=== PATIENT | female | born 2000 | race Two or more races ===

== ENCOUNTER 2023-12-03 04:43 | Inpatient (IN) | payer OTHER, MEDICAID ==
[~2023-12-03] VITALS: Ht 167.6 cm; Wt 50.0 kg
[2023-12-03 05:20] VITALS: PULSE 116; RESP 15; O2SAT 92
[2023-12-03 07:18] LABS: Basophils # (auto) 0 10 ^3/uL (0-0.2); Basophils % (auto) 0.5 % (0.0-2.0); Eosinophils # (auto) 0.1 10 ^3/uL (0-0.8); Eosinophils % (auto) 1.1 % (0.0-7.0); Hematocrit 41.2 % (36.0-46.0); Hemoglobin 14.2 g/dL (12.2-16.2); Lymphocytes # (auto) 2.2 10 ^3/uL (0.4-5.4); Lymphocytes % (auto) 23.4 % (10.0-50.0); Mean Corpuscular Hgb Conc. 34.6 g/dL (32.0-36.0); Mean Corpuscular Volume 89.6 fL (80.0-100.0); Monocytes # (auto) 0.5 10 ^3/uL (0-1.3); Monocytes % (auto) 5.2 % (0.0-12.0); Neutrophils # (auto) 6.7 10 ^3/uL (1.6-8.6); Neutrophils % (auto) 69.8 % (37.0-80.0); Nucleated Red Blood Cells % 0.1 %; Red Cell Distribution Width 16.5 % (11.8-14.3); White Blood Cell 9.6 10^3/uL (4.4-10.8)
[2023-12-03 07:19] LABS: Alanine Aminotransferase 61 U/L (7-40); Albumin 4.5 g/dL (3.2-4.8); Alkaline Phosphatase 129 U/L (46-116); Anion Gap 9 (5-15); Aspartate Aminotransferase 36 U/L (13-40); Blood Urea Nitrogen 9 mg/dL (9-23); Calcium 9.7 mg/dL (8.5-10.1); Carbon Dioxide 26 mmol/L (20-30); Chloride 108 mmol/L (98-107); Glucose 100 mg/dL (74-106); Potassium 3.7 mmol/L (3.5-5.1); Sodium 143 mmol/L (136-145)
[2023-12-03 07:20] LABS: Bilirubin, Direct < 0.1 mg/dL (<0.3); Bilirubin, Total 0.3 mg/dL (0.2-1.0); Total Protein 7.5 g/dL (5.7-8.2)
[2023-12-03 07:47] LABS: Acetaminophen < 2.0 UG/ML (10.0-20.0); Salicylate 5.1 mg/dL (2.8-20.0)
[2023-12-03 07:53] LABS: Lipase 30 U/L (12-53)
[2023-12-03 08:00] VITALS: PULSE 99; RESP 24; O2SAT 94
[2023-12-03] MEDS: SODIUM CHLORIDE 0.9% 1,600 ML IV ONE (08:27)
[2023-12-03] MEDS: HYDROmorphone HCL 2 MG/ML VL/or syr IV ONE ×2 (08:34→10:02)
[2023-12-03 08:41] LABS: INR 1.03 (0.9-1.15); Prothrombin Time 10.8 sec (9.3-11.8)
[2023-12-03 08:55] LABS: Amphetamine Screen, Urine Neg (NEGATIVE)
[2023-12-03 08:57] LABS: Barbiturate Scree,Urine Neg (NEGATIVE); Benzodiazephine Screen, Urine Neg (NEGATIVE); Cocaine Screen, Urine Neg (NEGATIVE); Opiate Scree,Urine Neg (NEGATIVE)
[2023-12-03 08:58] LABS: Cannabinoid Screen, Urine Neg (NEGATIVE); Phencyclidine Screen, Urine Neg (NEGATIVE)
[2023-12-03 09:03] LABS: Urine Bacteria FEW /hpf (None Seen); Urine Blood Negative /uL (Negative); Urine Clarity HAZY (Clear); Urine Color Yellow (Yellow); Urine Mucus FEW (None Seen); Urine Protein, UAD TRACE (Negative); Urine Specific Gravity 1.015 (1.001-1.035); Urine Urobilinogen Normal (Negative); Urine WBC 332 /hpf (0 - 5); Urine WBC Clumps PRESENT /hpf (None Seen)
[2023-12-03] MEDS: IOHEXOL 350 MG/ML 100ML IJ ONE (09:57)
[2023-12-03] MEDS: SODIUM CHLORIDE 0.9% 1,000 ML IV SCH (11:00)
[2023-12-03] MEDS: BACLOFEN 10 MG TAB PO ONE (11:35)
[2023-12-03] MEDS: cefTRIAXone 1GM/50ML D5W 50 ML IV ONE (13:11)
[2023-12-03] MEDS: AZITHROMYCIN 500MG/ 250ML 250 ML IV ONE (13:24)
[2023-12-03] MEDS: HYDROmorphone HCL 2 MG/ML VL/or syr IV PRN (16:25)
[2023-12-03 20:04] VITALS: PULSE 119; RESP 20; O2SAT 95
[2023-12-03 21:18] VITALS: PULSE 119; RESP 20; O2SAT 95
[2023-12-03 22:00] VITALS: BP 108/61; PULSE 85; RESP 18; TEMP 98.2; O2SAT 97
[2023-12-03] MEDS: POLYETHYLENE GLYCOL 17 GM PWDR PO SCH (22:15)
[2023-12-03 23:17] VITALS: BP 108/61; PULSE 85; RESP 18; TEMP 98.2; O2SAT 97
[2023-12-04 05:00] VITALS: BP 103/53; PULSE 105; RESP 16; TEMP 98.4; O2SAT 97
[2023-12-04 06:05] LABS: Basophils # (auto) 0 10 ^3/uL (0-0.2); Basophils % (auto) 0.6 % (0.0-2.0); Eosinophils # (auto) 0.1 10 ^3/uL (0-0.8); Eosinophils % (auto) 1.4 % (0.0-7.0); Hematocrit 36.1 % (36.0-46.0); Hemoglobin 11.9 g/dL (12.2-16.2); Lymphocytes # (auto) 1.9 10 ^3/uL (0.4-5.4); Lymphocytes % (auto) 28.5 % (10.0-50.0); Mean Corpuscular Hemoglobin 29.9 pg (28.0-32.0); Mean Corpuscular Hgb Conc. 33.1 g/dL (32.0-36.0); Mean Corpuscular Volume 90.2 fL (80.0-100.0); Monocytes # (auto) 0.4 10 ^3/uL (0-1.3); Monocytes % (auto) 5.2 % (0.0-12.0); Neutrophils # (auto) 4.3 10 ^3/uL (1.6-8.6); Neutrophils % (auto) 64.3 % (37.0-80.0); Nucleated Red Blood Cells % 0.1 %; Red Cell Distribution Width 16.4 % (11.8-14.3); White Blood Cell 6.7 10^3/uL (4.4-10.8)
[2023-12-04 06:22] LABS: Alanine Aminotransferase 52 U/L (7-40); Albumin 3.8 g/dL (3.2-4.8); Alkaline Phosphatase 105 U/L (46-116); Anion Gap 5 (5-15); Aspartate Aminotransferase 33 U/L (13-40); Bilirubin, Total 0.2 mg/dL (0.2-1.0); Calcium 8.8 mg/dL (8.5-10.1); Carbon Dioxide 26 mmol/L (20-30); Chloride 110 mmol/L (98-107); Glucose 96 mg/dL (74-106); Potassium 3.6 mmol/L (3.5-5.1); Sodium 141 mmol/L (136-145); Total Protein 6.3 g/dL (5.7-8.2)
[2023-12-04 06:24] LABS: BUN/Creatinine Ratio 22.7 (10.0-20.0); Blood Urea Nitrogen < 5 mg/dL (9-23)
[2023-12-04 08:00] VITALS: PULSE 89; RESP 17; O2SAT 94
[2023-12-04 08:55] VITALS: BP 105/52; PULSE 107; RESP 16; TEMP 98.5; O2SAT 94
[2023-12-04] MEDS: cefTRIAXone 1GM/50ML D5W 50 ML IV SCH (10:15)
[2023-12-04] MEDS: AZITHROMYCIN 500MG/ 250ML 250 ML IV SCH (10:16)
[2023-12-04 12:50] VITALS: BP 104/65; PULSE 89; RESP 17; TEMP 95.4; O2SAT 94
[2023-12-04 20:00] VITALS: PULSE 89; RESP 17; O2SAT 94
[2023-12-04 22:00] VITALS: BP 114/70; PULSE 102; RESP 18; TEMP 98.8; O2SAT 98
[2023-12-05] VITALS (11 sets, daily range): BP systolic 104–124; BP diastolic 58–78; PULSE 98–114; RESP 18–20; TEMP 97.8–99; O2SAT 95–98
[2023-12-05] MEDS: BACLOFEN 10 MG TAB PO PRN (09:26)
[2023-12-05] MEDS ORDERED: VANCOMYCIN PER PHARMACY 0 MG IV SCH (10:30)
[2023-12-05] MEDS: SODIUM CHLORIDE 0.9% 1,000 ML IV ONE (11:10)
[2023-12-05] MEDS: VANCOMYCIN 1GM/200ML 200 ML IV ONE (12:00)
[2023-12-05] MEDS: ALBUTEROL SULF 2.5 MG/0.5ML(0.5%) NEB SOLN NEB SCH (12:22)
[2023-12-05] MEDS: VANCOMYCIN 1GM/200ML 200 ML IV SCH (21:47)
[2023-12-05] MEDS ORDERED: ALBUTEROL SULF 2.5 MG/0.5ML(0.5%) NEB SOLN NEB PRN (22:00)
[2023-12-06] VITALS (9 sets, daily range): BP systolic 104–117; BP diastolic 62–72; PULSE 81–104; RESP 17–22; TEMP 97.9–98.3; O2SAT 93–98
[2023-12-06] MEDS: NutriHep RTU 240 mL Unflavored PO SCH (12:00)
[2023-12-06] MEDS: ENOXAPARIN SOD 30 MG/0.3 ML SYRINGE SC ONE (13:06)
[2023-12-06 13:58] LABS: Alanine Aminotransferase 92 U/L (7-40); Albumin 3.9 g/dL (3.2-4.8); Alkaline Phosphatase 107 U/L (46-116); Anion Gap 7 (5-15); Aspartate Aminotransferase 35 U/L (13-40); Bilirubin, Total 0.3 mg/dL (0.2-1.0); Calcium 9.3 mg/dL (8.7-10.4); Carbon Dioxide 25 mmol/L (20-30); Chloride 106 mmol/L (98-107); Glucose 89 mg/dL (74-106); Magnesium 1.8 mg/dL (1.6-2.6); Potassium 3.5 mmol/L (3.5-5.1); Sodium 138 mmol/L (136-145); Total Protein 6.6 g/dL (5.7-8.2)
[2023-12-06 14:00] LABS: BUN/Creatinine Ratio 22.7 (10.0-20.0); Blood Urea Nitrogen < 5 mg/dL (9-23)
[2023-12-07] VITALS (11 sets, daily range): BP systolic 98–130; BP diastolic 52–76; PULSE 78–114; RESP 16–19; TEMP 36.6; O2SAT 94–97
[2023-12-07] MEDS: VANCOMYCIN 750mg/150ml 150 ML IV SCH (01:42)
[2023-12-07 05:49] LABS: Potassium 3.6 mmol/L (3.5-5.1)
[2023-12-07 05:51] LABS: Calcium 9.4 mg/dL (8.7-10.4)
[2023-12-07 05:56] LABS: BUN/Creatinine Ratio 21.7 (10.0-20.0)
[2023-12-07 05:58] LABS: Albumin 3.8 g/dL (3.2-4.8); Phosphorus 4.5 mg/dL (2.4-5.1)
[2023-12-07] MEDS: ENOXAPARIN SOD 30 MG/0.3 ML SYRINGE SC SCH (08:18)
[2023-12-08] VITALS (8 sets, daily range): BP systolic 103–130; BP diastolic 53–71; PULSE 77–107; RESP 16–18; TEMP 36.6; O2SAT 95
[2023-12-08] MEDS: ENOXAPARIN SOD 40 MG/0.4 ML SYRINGE SC SCH (09:14)
[2023-12-08] MEDS: VANCOMYCIN 750mg/150ml 150 ML IV SCH (12:48)
[2023-12-08] MEDS: ONDANSETRON HCL 4 MG/2 ML VIAL IV PRN (19:51)
[2023-12-09 05:00] VITALS: BP 109/66; PULSE 100; RESP 16; TEMP 97.7; O2SAT 96
[2023-12-09 08:00] VITALS: BP 136/69; PULSE 75; PULSE 78; PULSE 82; RESP 18; TEMP 36.6; O2SAT 96
[2023-12-09 09:00] VITALS: BP 106/56; PULSE 75; RESP 18; TEMP 98.4; O2SAT 95
[2023-12-09 10:00] VITALS: O2SAT 97
[2023-12-09 14:23] LABS: INR 1.09 (0.9-1.15); Prothrombin Time 11.4 sec (9.3-11.8)
[2023-12-09] MEDS: LIDOCAINE 1% (LOCAL ANESTH.) PF 5ml SDV ID ONE (16:30)
[2023-12-09 20:00] VITALS: PULSE 88; RESP 18; O2SAT 95
[2023-12-09 22:00] VITALS: BP 102/48; PULSE 65; RESP 20; TEMP 97.8; O2SAT 92
[2023-12-09] MEDS: SODIUM CHLOR 0.9% PF (SALINE LOCK) 10ML VIAL/SYR IV SCH (22:00)
[2023-12-10] VITALS (9 sets, daily range): BP systolic 102–147; BP diastolic 58–90; PULSE 59–108; RESP 16–20; TEMP 97.6–98.5; O2SAT 93–100
[2023-12-10 02:31] LABS: COVID19 ANTIGEN SOFIA FIA NEGATIVE (NEGATIVE)
[2023-12-10] MEDS ORDERED: VANCOMYCIN 1GM/200ML 200 ML IV SCH (10:00)
[2023-12-11] VITALS (9 sets, daily range): BP systolic 106–118; BP diastolic 61–75; PULSE 68–120; RESP 15–22; TEMP 97–98.5; O2SAT 79–97
[2023-12-12] VITALS (9 sets, daily range): BP systolic 98–134; BP diastolic 59–85; PULSE 78–119; RESP 16–20; TEMP 97.6–99.2; O2SAT 93–97
[2023-12-12] MEDS: VANCOMYCIN 750mg/150ml 150 ML IV SCH (00:24)
[2023-12-12] MEDS: HYDROmorphone HCL 2 MG/ML VL/or syr IV PRN (16:37)
[2023-12-13] VITALS (8 sets, daily range): BP systolic 101–119; BP diastolic 55–64; PULSE 75–106; RESP 17–20; TEMP 98.7–98.9; O2SAT 93–98
[2023-12-14] VITALS (8 sets, daily range): BP systolic 103–120; BP diastolic 50–81; PULSE 69–112; RESP 17–96; TEMP 97.5–98; O2SAT 16–98
[2023-12-14] MEDS: DOCUSATE SOD 100 MG CAP PO PRN (10:40)
[2023-12-15] VITALS (8 sets, daily range): BP systolic 103–145; BP diastolic 61–101; PULSE 64–99; RESP 14–19; TEMP 97.4–98.1; O2SAT 94–97
[2023-12-16] VITALS (8 sets, daily range): BP systolic 104–120; BP diastolic 52–66; PULSE 66–109; RESP 17–20; TEMP 97.9–98.3; O2SAT 94–98
[2023-12-17] VITALS (8 sets, daily range): BP systolic 106–122; BP diastolic 57–86; PULSE 73–93; RESP 14–20; TEMP 97.6–98.1; O2SAT 94–98
[2023-12-18] VITALS (10 sets, daily range): BP systolic 102–138; BP diastolic 57–84; PULSE 74–112; RESP 16–18; TEMP 97.6–98.5; O2SAT 94–98
[2023-12-18 12:50] LABS: Alanine Aminotransferase 52 U/L (7-40); Albumin 4.6 g/dL (3.2-4.8); Alkaline Phosphatase 186 U/L (46-116); Anion Gap 6 (5-15); Aspartate Aminotransferase 25 U/L (13-40); Blood Urea Nitrogen 6 mg/dL (9-23); Calcium 9.8 mg/dL (8.5-10.1); Carbon Dioxide 28 mmol/L (20-30); Chloride 105 mmol/L (98-107); Glucose 89 mg/dL (74-106); Potassium 4.3 mmol/L (3.5-5.1); Sodium 139 mmol/L (136-145)
[2023-12-18 12:51] LABS: Bilirubin, Total 0.4 mg/dL (0.2-1.0); Total Protein 7.2 g/dL (5.7-8.2)
[2023-12-18 14:23] LABS: Basophils # (auto) 0.1 10 ^3/uL (0-0.2); Basophils % (auto) 0.7 % (0.0-2.0); Eosinophils # (auto) 0.2 10 ^3/uL (0-0.8); Eosinophils % (auto) 2.5 % (0.0-7.0); Hematocrit 38.8 % (36.0-46.0); Lymphocytes # (auto) 2.5 10 ^3/uL (0.4-5.4); Lymphocytes % (auto) 25.9 % (10.0-50.0); Mean Corpuscular Hemoglobin 30.4 pg (28.0-32.0); Mean Corpuscular Hgb Conc. 33.5 g/dL (32.0-36.0); Mean Corpuscular Volume 90.9 fL (80.0-100.0); Monocytes # (auto) 0.5 10 ^3/uL (0-1.3); Neutrophils # (auto) 6.2 10 ^3/uL (1.6-8.6); Neutrophils % (auto) 65.9 % (37.0-80.0); Red Blood Cells 4.27 10^6/uL (4.0-5.20); Red Cell Distribution Width 15.5 % (11.8-14.3); White Blood Cell 9.5 10^3/uL (4.4-10.8)
[2023-12-19 05:00] VITALS: BP 110/78; PULSE 75; RESP 18; TEMP 98.6; O2SAT 97
[2023-12-19 08:00] VITALS: PULSE 98
[2023-12-19 08:30] VITALS: BP 120/75; PULSE 98; RESP 18; TEMP 97.9; O2SAT 96
[2023-12-19 10:01] VITALS: O2SAT 96
[2023-12-19 10:39] VITALS: BP 120/75; PULSE 98; RESP 18; TEMP 97.9; O2SAT 96
[2023-12-19] MEDS: HYDROmorphone HCL 2 MG/ML VL/or syr IV PRN (12:42)
[2023-12-19 20:00] VITALS: PULSE 71; PULSE 79; RESP 18; O2SAT 97
[2023-12-20] VITALS (7 sets, daily range): BP systolic 111–115; BP diastolic 66–75; PULSE 80–103; RESP 15–20; TEMP 97.8–98.2; O2SAT 96–98
[2023-12-20] MEDS: ENOXAPARIN SOD 30 MG/0.3 ML SYRINGE SC ONE (16:11)
[2023-12-21] VITALS (7 sets, daily range): BP systolic 105–120; BP diastolic 63–87; PULSE 69–86; RESP 16–20; TEMP 97.4–98; O2SAT 94–98
[2023-12-21] MEDS: ENOXAPARIN SOD 30 MG/0.3 ML SYRINGE SC SCH (10:26)
[2023-12-21] MEDS: ZOLPIDEM TARTRATE 5 MG TAB PO PRN (22:57)
[2023-12-22] VITALS (9 sets, daily range): BP systolic 106–119; BP diastolic 56–80; PULSE 51–97; RESP 16–20; TEMP 97.8–99.3; O2SAT 94–98
[2023-12-23] VITALS (8 sets, daily range): BP systolic 115–162; BP diastolic 57–89; PULSE 62–101; RESP 18–20; TEMP 97.8–98.1; O2SAT 94–98
[2023-12-23] MEDS ORDERED: ZOLP5TAB PO (09:48)
[2023-12-23] MEDS ORDERED: BACL5TAB2 PO (09:48)
[2023-12-23] MEDS ORDERED: HYDR2TAB58 PO (09:48)
[2023-12-23] MEDS ORDERED: RIVA10TA PO (09:48)
[2023-12-23] MEDS ORDERED: DOCU-94 PO (09:48)
[2023-12-24 03:12] VITALS: BP 123/75; PULSE 86; RESP 20; TEMP 98.9; O2SAT 96
[2023-12-24 05:00] VITALS: BP 102/54; PULSE 107; RESP 18; TEMP 98; O2SAT 94
[2023-12-24 08:05] VITALS: PULSE 81
[2023-12-24 09:00] VITALS: BP 110/60; PULSE 110; RESP 14; TEMP 98.2; O2SAT 95
[2023-12-24 10:00] VITALS: O2SAT 95
[2023-12-24 10:30] VITALS: BP 110/63; PULSE 85; RESP 16
== END 2023-12-24 11:15 | disposition home health service (06) | DRG 871 ==
LOC: ER 04:43 → OVERFLOW 11:20 → EAST 22:10 → TELE-EAST 12-05 11:51
PROVIDERS: ADMIT Nurse Practitioner Family; ATTEND Family Medicine
PROC: 02H633Z Insertion of Infusion Device into Right Atrium, Percutaneous Approach (ICD-10-PCS; principal; 2023-12-09)
PROC: B548ZZA Ultrasonography of Superior Vena Cava, Guidance (ICD-10-PCS; 2023-12-09)
DX: A41.9 Sepsis, unspecified organism (principal); E43 Unspecified severe protein-calorie malnutrition; G82.50 Quadriplegia, unspecified; I61.9 Nontraumatic intracerebral hemorrhage, unspecified; J18.9 Pneumonia, unspecified organism; N10 Acute pyelonephritis; F11.13 Opioid abuse with withdrawal; Z68.1 Body mass index [BMI] 19.9 or less, adult; Z20.822 Contact with and (suspected) exposure to COVID-19; E86.0 Dehydration; L98.419 Non-pressure chronic ulcer of buttock with unspecified severity; R00.1 Bradycardia, unspecified; L98.429 Non-pressure chronic ulcer of back with unspecified severity; Z74.01 Bed confinement status; Z93.1 Gastrostomy status; Z93.0 Tracheostomy status
CPT/HCPCS: 36415; 36569; 70496; 71045; 71275; 76705; 80048; 80053; 80069; 80076; 80202; 80307; 80320; 80329; 81001; 82565; 82962; 83690; 83735; 84484; 84702; 85025; 85610; 87040; 87081; 87086; 87426; 93005; 94640; 96361; 96374; 96376; 97110; 97116; 97163; 97530; 99291; G0378; J2405

== ENCOUNTER 2023-12-29 07:15 | Inpatient (IN) | payer OTHER, MEDICAID ==
[~2023-12-29] VITALS: Ht 162.6 cm; Wt 54.5 kg
[~2023-12-29 07:15] MED LIST: BACL5TAB2 PO; DOCU-94 PO; HYDR2TAB58 PO; ZOLP5TAB PO
[2023-12-29 07:45] LABS: Basophils # (auto) 0.1 10 ^3/uL (0-0.2); Basophils % (auto) 0.8 % (0.0-2.0); Eosinophils # (auto) 0.2 10 ^3/uL (0-0.8); Eosinophils % (auto) 2.2 % (0.0-7.0); Hematocrit 43.3 % (36.0-46.0); Hemoglobin 14.3 g/dL (12.2-16.2); Lymphocytes # (auto) 2.1 10 ^3/uL (0.4-5.4); Lymphocytes % (auto) 29.7 % (10.0-50.0); Mean Corpuscular Hgb Conc. 32.9 g/dL (32.0-36.0); Monocytes # (auto) 0.5 10 ^3/uL (0-1.3); Monocytes % (auto) 6.9 % (0.0-12.0); Neutrophils # (auto) 4.2 10 ^3/uL (1.6-8.6); Neutrophils % (auto) 60.4 % (37.0-80.0); Red Blood Cells 4.76 10^6/uL (4.0-5.20)
[2023-12-29 07:59] VITALS: PULSE 90; RESP 14; O2SAT 95
[2023-12-29 08:04] LABS: Alanine Aminotransferase 44 U/L (7-40); Albumin 4.5 g/dL (3.2-4.8); Alkaline Phosphatase 117 U/L (46-116); Anion Gap 7 (5-15); Aspartate Aminotransferase 27 U/L (13-40); BUN/Creatinine Ratio 43.3 (10.0-20.0); Blood Urea Nitrogen 13 mg/dL (9-23); Carbon Dioxide 29 mmol/L (20-30); Chloride 104 mmol/L (98-107); Glucose 96 mg/dL (74-106); Potassium 4.2 mmol/L (3.5-5.1); Sodium 140 mmol/L (136-145)
[2023-12-29 08:05] LABS: Bilirubin, Total 0.4 mg/dL (0.2-1.0); Total Protein 7.1 g/dL (5.7-8.2)
[2023-12-29] MEDS ORDERED: SODIUM CHLORIDE 0.9% 2,000 ML IV ONE (08:15)
[2023-12-29] MEDS: LACTATED RINGER'S 2,000 ML IV ONE (08:15)
[2023-12-29 09:50] LABS: Urine Bacteria FEW /hpf (None Seen); Urine Blood Negative /uL (Negative); Urine Clarity Clear (Clear); Urine Protein, UAD Negative (Negative); Urine Specific Gravity 1.003 (1.001-1.035); Urine Urobilinogen Normal (Negative); Urine WBC 13 /hpf (0 - 5)
[2023-12-29 09:54] LABS: Urine Color Straw (Yellow)
[2023-12-29] MEDS: IOHEXOL 350 MG/ML 100ML IJ ONE (10:30)
[2023-12-29] MEDS: cefTRIAXone 1GM/50ML D5W 50 ML IV ONE (10:40)
[2023-12-29] MEDS: AZITHROMYCIN 500MG/ 250ML 250 ML IV ONE (12:36)
[2023-12-29] MEDS: DexAMETHasone SOD PHOS 10MG/1ML VIAL INJ IV ONE (12:36)
[2023-12-29] MEDS ORDERED: ACETAMINOPHEN 325 MG TAB PO PRN (13:30)
[2023-12-29] MEDS ORDERED: ONDANSETRON HCL 4 MG/2 ML VIAL IV PRN (13:30)
[2023-12-29] MEDS ORDERED: NITROGLYCERIN 0.4 MG SL TAB SL PRN (13:30)
[2023-12-29] MEDS ORDERED: MORPHINE SULFATE INJ 2 MG/ml SYRG IV PRN (13:30)
[2023-12-29] MEDS ORDERED: DOCUSATE SOD 100 MG CAP PO PRN (13:30)
[2023-12-29] MEDS: PANTOPRAZOLE 40 MG TAB PO ONE (14:34)
[2023-12-29] MEDS: BACLOFEN 10 MG TAB PO SCH (14:35)
[2023-12-29] MEDS: HYDROmorphone HCL 2 MG/ML VL/or syr IV ONE (14:36)
[2023-12-29 15:41] VITALS: BP 110/64; PULSE 83; RESP 18; O2SAT 95
[2023-12-29] MEDS ORDERED: ENOX30IN5 SC (19:31)
[2023-12-29] MEDS: HYDROmorphone HCL 2 MG TAB PO PRN (19:40)
[2023-12-29 20:00] VITALS: PULSE 129
[2023-12-29 20:13] VITALS: PULSE 87; RESP 20; O2SAT 97
[2023-12-29] MEDS: ALBUTEROL SULF 2.5 MG/0.5ML(0.5%) NEB SOLN NEB SCH (20:13)
[2023-12-29] MEDS: IPRATROPIUM BROM 0.5 MG/2.5ML INH SOL NEB SCH (20:13)
[2023-12-29 20:19] VITALS: PULSE 92; RESP 18; O2SAT 97
[2023-12-29 21:00] VITALS: BP 120/63; PULSE 141; RESP 19; TEMP 98.6; O2SAT 95
[2023-12-29] MEDS: HYDROcodone-ACET 5/325MG TAB PO PRN (22:09)
[2023-12-30] VITALS (16 sets, daily range): BP systolic 104–119; BP diastolic 44–83; PULSE 90–144; RESP 18–20; TEMP 97.9–98.6; O2SAT 92–100
[2023-12-30 05:38] LABS: Basophils # (auto) 0.1 10 ^3/uL (0-0.2); Basophils % (auto) 0.6 % (0.0-2.0); Eosinophils # (auto) 0 10 ^3/uL (0-0.8); Eosinophils % (auto) 0.1 % (0.0-7.0); Hematocrit 41.5 % (36.0-46.0); Hemoglobin 13.6 g/dL (12.2-16.2); Lymphocytes # (auto) 2.4 10 ^3/uL (0.4-5.4); Lymphocytes % (auto) 20.8 % (10.0-50.0); Mean Corpuscular Hgb Conc. 32.8 g/dL (32.0-36.0); Mean Corpuscular Volume 91.5 fL (80.0-100.0); Monocytes # (auto) 0.7 10 ^3/uL (0-1.3); Monocytes % (auto) 6.1 % (0.0-12.0); Neutrophils # (auto) 8.3 10 ^3/uL (1.6-8.6); Neutrophils % (auto) 72.4 % (37.0-80.0); Red Blood Cells 4.54 10^6/uL (4.0-5.20); Red Cell Distribution Width 14.9 % (11.8-14.3); White Blood Cell 11.5 10^3/uL (4.4-10.8)
[2023-12-30 05:55] LABS: Alanine Aminotransferase 36 U/L (7-40); Albumin 4.1 g/dL (3.2-4.8); Alkaline Phosphatase 101 U/L (46-116); Anion Gap 6 (5-15); Aspartate Aminotransferase 17 U/L (13-40); BUN/Creatinine Ratio 32.1 (10.0-20.0); Blood Urea Nitrogen 9 mg/dL (9-23); Calcium 9.3 mg/dL (8.7-10.4); Carbon Dioxide 27 mmol/L (20-30); Chloride 107 mmol/L (98-107); Glucose 99 mg/dL (74-106); Potassium 3.7 mmol/L (3.5-5.1); Sodium 140 mmol/L (136-145)
[2023-12-30 05:56] LABS: Bilirubin, Total 0.3 mg/dL (0.2-1.0); Total Protein 6.8 g/dL (5.7-8.2)
[2023-12-30] MEDS: levoFLOXacin 750MG 150 ML IV SCH (08:27)
[2023-12-30] MEDS: ENOXAPARIN SOD 30 MG/0.3 ML SYRINGE SC SCH (08:27)
[2023-12-30] MEDS: PANTOPRAZOLE 40 MG TAB PO SCH (08:27)
[2023-12-30] MEDS ORDERED: ALBUTEROL SULF 2.5 MG/0.5ML(0.5%) NEB SOLN NEB PRN (10:45)
[2023-12-30] MEDS: cefTRIAXone 1GM/50ML D5W 50 ML IV ONE (10:51)
[2023-12-30] MEDS: LORazepam 2MG/ML-1ML VIAL IV PRN (13:41)
[2023-12-31] VITALS (12 sets, daily range): BP systolic 111–128; BP diastolic 8–64; PULSE 110–141; RESP 17–20; TEMP 97.6–98.7; O2SAT 89–98
[2023-12-31 05:13] LABS: Basophils # (auto) 0.1 10 ^3/uL (0-0.2); Basophils % (auto) 0.6 % (0.0-2.0); Eosinophils # (auto) 0.1 10 ^3/uL (0-0.8); Eosinophils % (auto) 0.6 % (0.0-7.0); Hematocrit 38.8 % (36.0-46.0); Lymphocytes # (auto) 2.3 10 ^3/uL (0.4-5.4); Lymphocytes % (auto) 21.4 % (10.0-50.0); Mean Corpuscular Hemoglobin 30.3 pg (28.0-32.0); Mean Corpuscular Hgb Conc. 33.4 g/dL (32.0-36.0); Mean Corpuscular Volume 90.7 fL (80.0-100.0); Monocytes # (auto) 0.8 10 ^3/uL (0-1.3); Monocytes % (auto) 7.6 % (0.0-12.0); Neutrophils # (auto) 7.4 10 ^3/uL (1.6-8.6); Neutrophils % (auto) 69.8 % (37.0-80.0); Nucleated Red Blood Cells % 0.1 %; Red Blood Cells 4.27 10^6/uL (4.0-5.20); White Blood Cell 10.7 10^3/uL (4.4-10.8)
[2023-12-31 05:19] LABS: Anion Gap 6 (5-15); Carbon Dioxide 30 mmol/L (20-30); Chloride 104 mmol/L (98-107); Potassium 4.1 mmol/L (3.5-5.1); Sodium 140 mmol/L (136-145)
[2023-12-31 05:20] LABS: Calcium 9.5 mg/dL (8.5-10.1)
[2023-12-31 05:25] LABS: BUN/Creatinine Ratio 21.2 (10.0-20.0); Blood Urea Nitrogen 7 mg/dL (9-23); Glucose 94 mg/dL (74-106)
[2023-12-31] MEDS: dilTIAZem 25 MG/5 ML VIAL IV ONE (05:35)
[2023-12-31] MEDS: cefTRIAXone 1GM/50ML D5W 50 ML IV SCH (09:51)
[2023-12-31] MEDS ORDERED: LEVO750T40 PO (10:31)
== END 2023-12-31 14:45 | disposition home health service (06) | DRG 313 ==
LOC: ER 07:15 → EDBD 07:15 → TELE 13:31 → TELE-WESTW 18:19
PROVIDERS: ADMIT Internal Medicine Pulmonary Disease; ATTEND Internal Medicine Pulmonary Disease
DX: R07.89 Other chest pain (principal); G82.50 Quadriplegia, unspecified; N30.00 Acute cystitis without hematuria; J98.11 Atelectasis; L89.152 Pressure ulcer of sacral region, stage 2; G89.29 Other chronic pain; N28.9 Disorder of kidney and ureter, unspecified; Z79.899 Other long term (current) drug therapy; Z86.73 Personal history of transient ischemic attack (TIA), and cerebral infarction without residual deficits
CPT/HCPCS: 36415; 71045; 71275; 80048; 80053; 81001; 83605; 83735; 84484; 85025; 85379; 87040; 87081; 93005; 94640; G0378; J1100; J1956

== ENCOUNTER 2024-11-01 00:15 | Inpatient (IN) | payer MEDICAID, OTHER ==
[2024-11-01] VITALS (13 sets, daily range): BP systolic 96; BP diastolic 56; PULSE 100–150; RESP 16–27; TEMP 99.3; O2SAT 89–99
[~2024-11-01] VITALS: Ht 157.5 cm; Wt 57.8 kg
[~2024-11-01 00:15] MED LIST changes: +ENOX30IN5 SC; +LEVO750T40 PO
[2024-11-01] MEDS: SODIUM CHLORIDE 0.9% 1,000 ML IV ONE ×3 (01:11→05:31)
[2024-11-01 01:21] LABS: Chloride 104 mmol/L (98-107); Potassium 3.8 mmol/L (3.5-5.1); Sodium 140 mmol/L (136-145)
[2024-11-01 01:22] LABS: Anion Gap 10 (5-15); Carbon Dioxide 26 mmol/L (20-31)
[2024-11-01 01:23] LABS: Calcium 9.7 mg/dL (8.7-10.4)
[2024-11-01 01:27] LABS: BUN/Creatinine Ratio 41.7 (10.0-20.0); Blood Urea Nitrogen 15 mg/dL (9-23)
[2024-11-01 01:37] LABS: Glucose 125 mg/dL (74-106)
[2024-11-01 01:39] LABS: Basophils # (auto) 0 10 ^3/uL (0-0.2); Basophils % (auto) 0.4 % (0.0-2.0); Eosinophils # (auto) 0.1 10 ^3/uL (0-0.8); Eosinophils % (auto) 1.2 % (0.0-7.0); Hemoglobin 13.3 g/dL (12.2-16.2); Lymphocytes # (auto) 0.9 10 ^3/uL (0.4-5.4); Lymphocytes % (auto) 10.2 % (10.0-50.0); Mean Corpuscular Hgb Conc. 33.4 g/dL (32.0-36.0); Mean Corpuscular Volume 86.9 fL (80.0-100.0); Monocytes # (auto) 0.8 10 ^3/uL (0-1.3); Monocytes % (auto) 9.7 % (0.0-12.0); Neutrophils # (auto) 6.7 10 ^3/uL (1.6-8.6); Neutrophils % (auto) 78.5 % (37.0-80.0); Nucleated Red Blood Cells % 0.1 %; Platelet Count (auto) 213 10^3/uL (140-450); Red Cell Distribution Width 17.5 % (11.8-14.3); White Blood Cell 8.6 10^3/uL (4.4-10.8)
--- NOTE | 2024-11-01 02:02 | ED.PDOC ---
History of Present Illness HPI Comments 24 y/o F, with a significant Hx of quadriplegia and intracranial bleed, is BIBA for c/o shortness of breath, today. Per EMS report, patient comments on being awoken, suddenly, with difficulty breathing, this morning. She is commented to have been diagnosed with a "viral infection," yesterday, while at [facility]. Upon time of assessment, patient endorses on breathing improving s/p being given duo-nebulizer breathing treatment by EMS staff en route. She denies having any chest pain, cough, fever, chills, or other associated symptoms or modifiers at this time. Chief Complaint: Shortness of Breath Time Seen by MD: 00:30 Primary Care Provider: OMAR Reviewed Notes: Nurses Notes, Fuels Engineer Notes, Medications, Allergies Allergies: Coded Allergies: NO KNOWN ALLERGIES (Unverified , 12/03/23) Home Meds Active Scripts Levofloxacin Hemihydrate (LEVOFLOXACIN) 750 Mg Tab, 750 MG PO DAILY for 5 Days, #5 TAB Prov:CANDY BELCHER RESIDENT 12/31/23 Zolpidem Tartrate (Ambien) 5 Mg Tab, 5 MG PO HS PRN, #30 TAB Prov:KHADIJAH MCKINNEY MD 12/23/23 Docusate Sodium (Colace) 100 Mg Cap, 1 CAP PO BID PRN, #30 CAP Prov:KHADIJAH MCKINNEY MD 12/23/23 Baclofen (Baclofen) 5 Mg Tab, 10 MG PO TID, #90 TAB Prov:KHADIJAH MCKINNEY MD 12/23/23 Hydromorphone Hcl (Dilaudid) 2 Mg Tab, 0.5 TAB PO TID PRN, #30 TAB Prov:KHADIJAH MCKINNEY MD 12/23/23 Reported Medications Enoxaparin Sodium (Enoxaparin Sodium) 30 Mg/0.3 Ml Inj, SC 12/29/23 Information Source: Patient, Emergency Med Personnel Mode of Arrival: EMS Severity: Moderate Timing: Hours Duration: Since onset Prehospital treatment: 12 Lead EKG, Breathing Tx, Insurance Sales Manager Past Medical History PAST MEDICAL HISTORY: CVA Past Medical History (Other): intracranial hemorrhage, quadriplegia Surgical History: Denies all surgeries Surgical History (Other): intubation and extubation, PEG tube, tacheostomy [employer]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: Unknown Family History Family History: Unknown Social History Smoker: Non-Smoker Alcohol: Denies ETOH Use Drugs: Denies Drug Use Lives In: Home Respiratory: reports: shortness of breath All Other Systems: Reviewed and Negative (negative unless otherwise stated above or in HPI) Physical Exam General Appearance: No Apparent Distress, Normal HEENT: Normal ENT Inspection, Pharynx Normal, TMs Normal Neck: Full Range of Motion, Non-Tender, Normal, Normal Inspection Respiratory: Chest Non-Tender, No Accessory Muscle Use, No Respiratory Distress, Wheezing (minor expiratory wheezing bilaterally) Cardiovascular: No Edema, No JVD, No Murmur, No Gallop, Normal Peripheral Pulses, Regular Rate/Rhythm Breast Exam: Deferred Gastrointestinal: No Organomegaly, Non Tender, No Pulsatile Mass, Normal Bowel Sounds, Soft Genitalia: Deferred Pelvic: Deferred Rectal: Deferred Extremities: No calf tenderness, Normal capillary refill, Normal inspection, Normal range of motion, Non-tender, No pedal edema Musculoskeletal : Apperance: Normal Neurologic: Alert, Normal Affect, Normal Mood, Other (quadriplegic) Cerebellar Function: Normal Reflexes: Normal Skin: Dry, Normal Color, Warm Lymphatic: No Adenopathy Was a procedure done? Was a procedure done?: No EKG EKG : Pulse Rate (adult): 113 [place]: Normal Cardiac Rhythm: ST Block: None Hypertrophy: None ST: Normal Differential Dx Considerations may include: URI, viral syndrome, PNA, bronchitis, Covid19, influenza, pleural effusions X-Ray, Labs, Meds, VS Vital Signs Date Time Temp Pulse Resp B/P (MAP) Pulse Ox O2 Delivery O2 Flow Rate FiO2 11/01/24 03:36 113 11/01/24 03:17 99.1 11/01/24 02:17 100.9 11/01/24 01:59 100.9 111 18 93/62 (72) 96 100.9 11/01/24 01:06 113 27 97 Nasal Cannula* 4 36 11/01/24 01:01 98.9 113 27 85/49 (61) 97 98.9 11/01/24 00:34 113 11/01/24 00:20 98.7 115 29 118/73 (88) 94 Lab Test 11/01/24 01:00 Range/Units White Blood Count 8.6 4.4-10.8 10^3/uL Red Blood Count 4.60 4.0-5.20 10^6/uL Hemoglobin 13.3 12.2-16.2 g/dL Hematocrit 40.0 36.0-46.0 % Mean Corpuscular Volume 86.9 80.0-100.0 fL Mean Corpuscular Hemoglobin 29.0 28.0-32.0 pg Mean Corpuscular Hemoglobin Concent 33.4 32.0-36.0 g/dL Red Cell Distribution Width 17.5 H 11.8-14.3 % Platelet Count 213 140-450 10^3/uL Mean Platelet Volume 8.9 6.9-10.8 fL Neutrophils (%) (Auto) 78.5 37.0-80.0 % Lymphocytes (%) (Auto) 10.2 10.0-50.0 % Monocytes (%) (Auto) 9.7 0.0-12.0 % Eosinophils (%) (Auto) 1.2 0.0-7.0 % Basophils (%) (Auto) 0.4 0.0-2.0 % Neutrophils # (Auto) 6.7 1.6-8.6 10 ^3/uL Lymphocytes # (Auto) 0.9 0.4-5.4 10 ^3/uL Monocytes # (Auto) 0.8 0-1.3 10 ^3/uL Eosinophils # (Auto) 0.1 0-0.8 10 ^3/uL Basophils # (Auto) 0 0-0.2 10 ^3/uL Nucleated Red Blood Cells 0.1 % Sodium Level 140 136-145 mmol/L Potassium Level 3.8 3.5-5.1 mmol/L Chloride Level 104 98-107 mmol/L Carbon Dioxide Level 26 20-31 mmol/L Anion Gap 10 5-15 Blood Urea Nitrogen 15 9-23 mg/dL Creatinine 0.36 L 0.550-1.02 mg/dL Glomerular Filtration Rate Calc 144 >90 mL/min BUN/Creatinine Ratio 41.7 H 10.0-20.0 Serum Glucose 125 H 74-106 mg/dL Calcium Level 9.7 8.7-10.4 mg/dL B-Type Natriuretic Peptide 14.82 0-100 pg/mL Current Medications Medications (Trade) Dose Ordered Sig/Carlos Route Start Time Stop Time Status Last Admin Sodium Chloride 1,000 ml @ 1,000 mls/hr Q1H ONCE IV 11/01/24 01:00 11/01/24 01:59 DC 11/01/24 01:11 Acetaminophen (Tylenol Tablet) 650 mg ONCE ONCE PO 11/01/24 02:15 11/01/24 02:16 DC 11/01/24 02:17 [place] [id number] Ph: [phone] DIAGNOSTIC IMAGING Diagnostic Imaging Report : [id number] Signed PATIENT: STEPHANI GRIGGS ACCT: [id number] UNIT: [id number] : 2000 LOC: ER ROOM / BED: / AGE / SEX: 24 / F ADM STATUS: REG ER SERVICE ORDERING PHYSICIAN: SUSANNE VERGARA MD PROCEDURE(s): CXRP - CHEST PORTABLE REASON: sob ORDER NUMBER(s): [id number], ACCESSION NUMBER(s): [id number] CHEST RADIOGRAPH Indication: sob Technique: Single frontal view of the chest was obtained Comparison: XY CHEST PORTABLE on DOS: 12/29/23, XY CHEST PORTABLE on DOS: 12/09/23, XY CHEST PORTABLE on DOS: 12/06/23 IMPRESSION: There is dense opacification of the lower half of the right lung with mediastinal shift to the right and termination of the right mainstem bronchus suggesting atelectasis with probable occlusion of the right bronchus. The left lung appears relatively clear. There is interstitial prominence and mild pulmonary vascular congestion. No pneumothorax. ATED BY: SEYMOUR ROCA MD DICTATED DATE/TIME: 11/01/24226 SIGNED BY: SEYMOUR ROCA MD SIGNED DATE/TIME: 11/01/24226 CC: Time of 1ST Reevaluation: 01:00 Reevaluation 1ST: Unchanged Patient Education/Counseling: Diagnosis, Treatment Family Education/Counseling: No Family Present Additional Information I reviewed the following notes from patient's past medical encounters: ED physician note on 12/29/23 and 12/03/23; Hospital admission discharge summary 12/31/23 and 12/24/23 The following tests were ordered, and results were reviewed by me: EKG, CXR, rapid influenza A&B and Covid19 antigen DANIEL tests, CBC, BMP, BNP Additional Information was gathered from interviewing the following independent historians: EMT I reviewed and agreed with the following test results read by other providers: CXR I discussed treatment and results with medical personnel Departure 1 Departure Time of Disposition: 04:00 (Patient with a right lower lobe consolidation. Patient home his signs symptoms concerning for possible sepsis however patient is refusing sepsis interventions. We will re-attempt to give patient fluids antibiotics and admit patient for further workup.) Impression: Primary Impression: Right lower lobe consolidation Additional Impression: Shortness of breath Disposition: ADMITTED INPATIENT Admit to: Med Surg Condition: Serious Critical Care Note Critical Care Time?: Yes Critical care comment: Acute shortness of breath Authorized and Performed by: Susanne Vergara MD Total critical care time: Approximately 41 minutes Due to a high probability of clinically significant, life threatening det erioration, the patient required my highest level of preparedness to intervene emergently and I personally spent this critical care time directly and personally managing the patient. This critical care time included obtaining a history; examining the patient; pulse oximetry; ordering and review of studies; arranging urgent treatment with development of a management plan; evaluation of patient's response to treatment; frequent reassessment; and, discussions with other providers. This critical care time was performed to assess and manage the high probability of imminent, life-threatening deterioration that could result in multi-organ failure. It was exclusive of separately billable procedures and treating other patients and teaching time. Please see my other sections and the rest of the note for further information on patient assessment and treatment. Stability Stability form required: No Heart Score Heart Score: Heart Score Response (Comments) Value History N/A 0 EKG N/A 0 Age N/A 0 Risk Factors N/A 0 Troponin N/A 0 Total 0 I personally scribed for SUSANNE VERGARA MD ([email or web address]) on 11/01/24 at 02:01. Electronically submitted by Seth Murillo ([email or web address]). I personally scribed for SUSANNE VERGARA MD ([email or web address]) on 11/01/24 at 03:36. Electronically submitted by Seth Murillo ([email or web address]). SUSANNE VERGARA MD Nov 01, 2024 02:01
[2024-11-01] MEDS: ACETAMINOPHEN 325 MG TAB PO ONE (02:17)
--- NOTE | 2024-11-01 02:28 | DVH ---
CHEST RADIOGRAPH Indication: sob Technique: Single frontal view of the chest was obtained Comparison: XY CHEST PORTABLE on DOS: 12/29/23, XY CHEST PORTABLE on DOS: 12/09/23, XY CHEST PORTABLE on DOS: 12/06/23 IMPRESSION: There is dense opacification of the lower half of the right lung with mediastinal shift to the right and termination of the right mainstem bronchus suggesting atelectasis with probable occlusion of the right bronchus. The left lung appears relatively clear. There is interstitial prominence and mild pulmonary vascular congestion. No pneumothorax.
[2024-11-01] MEDS ORDERED: SODIUM CHLORIDE 0.9% 2,000 ML IV ONE (04:30)
[2024-11-01] MEDS: ACETAMINOPHEN IV 1000 MG/100ML (10MG/ML) IV ONE (04:36)
[2024-11-01] MEDS: AZITHROMYCIN 250 MG TAB PO ONE (04:40)
[2024-11-01] MEDS: VANCOMYCIN 1GM/250ML KIT 200 ML IV ONE (04:41)
[2024-11-01] MEDS: IOHEXOL 350 MG/ML 100ML IJ ONE (05:16)
[2024-11-01] MEDS: CEFEPIME 2GM/50ML NS 50 ML IV ONE (05:28)
--- NOTE | 2024-11-01 05:52 | DVHHPRES ---
History of Present Illness Resident Creating Document: KARI MOLINA RESIDENT History of Present Illness Patient is a 24-year-old female with past medical history of quadriplegia secondary to an intracranial hemorrhage due to alteplase administration in 2022, who came in due to shortness of breath. According to the patient, she has been having increasing shortness of breath and dyspnea for the past 3 days, she also feels congested and at baseline is incontinent and unable to cough. Denies having any sick contacts. On review of systems patient is complaining of fever, congestion, shortness of breath, dyspnea and palpitations. Chest x-ray showedb dense opacification of the lower half of the right lung with mediastinal shift to the right and termination of the right mainstem bronchus suggesting atelectasis with probable occlusion of the right bronchus. Past Medical History quadriplegia secondary to an intracranial hemorrhage due to alteplase administration in 2022 Past Surgical History Intubation, tracheostomy, peg tube Smoke: No ALCOHOL: none Drugs: None Lives: with Family Review of Systems Constitutional: Yes: Fever, Chills; No: Sweats, Weakness, Malaise, Other Eyes: No: Pain, Vision change, Conjunctivae inflammation, Eyelid inflammation, Other, Redness ENT: No: Ear pain, Ear discharge, Nose pain, Nose discharge, Nose congestion, Mouth pain, Mouth swelling, Throat pain, Throat swelling, Other Respiratory: Shortness of breath; No: Cough, Dry, SOB with excertion, Wheezing, Hemoptysis, Pleuritic Pain, Sputum, Wheezing, Other Cardiovascular: Palpitations; No: Chest Pain, Orthopnea, Paroxysmal Noc. Dyspnea, Edema, Lt Headedness, Other Gastrointestinal: No: Nausea, Vomiting, Abdominal Pain, Diarrhea, Constipation, Melena, Hematochezia, Other Genitourinary: No Dysuria, No Frequency, No Incontinence, No Hematuria, No Retention, No Other Musculoskeletal: No: other, neck pain, shoulder pain, arm pain, back pain, hand pain, leg pain, foot pain Skin: No: Rash, Lesions, Jaundice, Bruising, Other Neurological: No: Weakness, Numbness, Incoordination, Change in speech, Confusion, Seizures, Other Allergies: Coded Allergies: NO KNOWN ALLERGIES (Unverified , 12/03/23) Medications Current Medications Medications Dose Ordered Sig/Carlos Route Start Time Stop Time Status Last Admin Dose Admin Azithromycin 250 ml @ 125 mls/hr DAILY@0500 IV 11/02/24 05:00 Meropenem 50 ml @ 17 mls/hr Q8HR IV 11/01/24 06:00 Ipratropium [place] 0.5 mg Q4HR NEB 11/01/24 06:00 Levalbuterol HCl 1.25 mg Q4HR NEB 11/01/24 06:00 Exam Vital Signs Vital Signs Date Time Temp Pulse Resp B/P (MAP) Pulse Ox O2 Delivery O2 Flow Rate FiO2 11/01/24 05:00 98.9 99 23 80/43 (55) 99 98.9 11/01/24 01:06 Nasal Cannula* 4 36 General Appearance: Alert, Oriented X3, Cooperative, moderate distress HEENT: Atraumatic, PERRLA, EOMI Respiratory: Other (Bilateral wheezes, decreased bilateral breath entry) Cardiovascular: Regular rate, Normal S1, Normal S2 Abdominal: Normal bowel sounds, No tenderness Extremities: No clubbing, No edema Skin: No significant lesion Neuro: Normal speech Labs/Xrays Labs Test 11/01/24 04:44 11/01/24 01:00 Range/Units Lactic Acid Level 0.7 0.4-2.0 mmol/L White Blood Count 8.6 4.4-10.8 10^3/uL Red Blood Count 4.60 4.0-5.20 10^6/uL Hemoglobin 13.3 12.2-16.2 g/dL Hematocrit 40.0 36.0-46.0 % Mean Corpuscular Volume 86.9 80.0-100.0 fL Mean Corpuscular Hemoglobin 29.0 28.0-32.0 pg Mean Corpuscular Hemoglobin Concent 33.4 32.0-36.0 g/dL Red Cell Distribution Width 17.5 H 11.8-14.3 % Platelet Count 213 140-450 10^3/uL Mean Platelet Volume 8.9 6.9-10.8 fL Neutrophils (%) (Auto) 78.5 37.0-80.0 % Lymphocytes (%) (Auto) 10.2 10.0-50.0 % Monocytes (%) (Auto) 9.7 0.0-12.0 % Eosinophils (%) (Auto) 1.2 0.0-7.0 % Basophils (%) (Auto) 0.4 0.0-2.0 % Neutrophils # (Auto) 6.7 1.6-8.6 10 ^3/uL Lymphocytes # (Auto) 0.9 0.4-5.4 10 ^3/uL Monocytes # (Auto) 0.8 0-1.3 10 ^3/uL Eosinophils # (Auto) 0.1 0-0.8 10 ^3/uL Basophils # (Auto) 0 0-0.2 10 ^3/uL Nucleated Red Blood Cells 0.1 % Sodium Level 140 136-145 mmol/L Potassium Level 3.8 3.5-5.1 mmol/L Chloride Level 104 98-107 mmol/L Carbon Dioxide Level 26 20-31 mmol/L Anion Gap 10 5-15 Blood Urea Nitrogen 15 9-23 mg/dL Creatinine 0.36 L 0.550-1.02 mg/dL Glomerular Filtration Rate Calc 144 >90 mL/min BUN/Creatinine Ratio 41.7 H 10.0-20.0 Serum Glucose 125 H 74-106 mg/dL Calcium Level 9.7 8.7-10.4 mg/dL B-Type Natriuretic Peptide 14.82 0-100 pg/mL Beta HCG, Quantitative 0.8 L 1.5-4.2 mIU/mL Assessment/Plan Assessment/Plan Acute hypoxic respiratory failure Pneumonia: Aspiration versus community-acquired Sepsis due to above r/o pulmonary embolism - CXR: There is dense opacification of the lower half of the right lung with mediastinal shift to the right and termination of the right mainstem bronchus suggesting atelectasis with probable occlusion of the right bronchus. The left lung appears relatively clear. There is interstitial prominence and mild pulmonary vascular congestion. No pneumothorax. - IV azithromycin, IV vancomycin - IV cefepime - IV NS 3 L bolus - ipratropium and levalbuterol scheduled q.4 hours - pulmonology consulted - MRSA nares, blood culture, urine culture, sputum culture - ordered chest ultrasound - ordered CT angiography, lower extremity Doppler History of quadriplegia secondary to intracerebral hemorrhage in July 2023 Secondary to cerebral AVM? - monitor - ordered swallow evaluation DVT prophylaxis: Levonox 30mg Goals of care: Full code, discussed for >16 minutes on 11/01/2024 Plan discussed with patient Plan discussed with Dr. Calloway Plan discussed with: Patient, Other (RN) My Orders Orders - KARI MOLINA RESIDENT Procedure Category Date Status Time Urine Bacterial EMILIE 11/01/24 Logged Culture 04:34 Respiratory Culture EMILIE 11/01/24 Logged W/ Gs 04:34 Mrsa Screen EMILIE 11/01/24 Logged 05:07 Meropenem 1gm Ivpb PHA 11/01/24 In Process (Merrem 1gm/ Ns) 06:00 Ipratropium Medneb PHA 11/01/24 In Process (Atrovent Medneb) 06:00 Levalbuterol Hcl PHA 11/01/24 In Process (Xopenex Medneb) 06:[address] 11/01/24 Logged Contrast 05:07 Bilat Lower Dvt US 11/01/24 Logged 05:07 Urinalysis LAB 11/01/24 Logged 05:07 Regular Diet DIET 11/01/24 Transmitted Breakfast * Dietary Consult CONS 11/01/24 Transmitted 05:07 Sodium Chloride 0.9% PHA 11/01/24 In Process 05:15 Azithromycin 500mg/ PHA 11/02/24 In Process 250ml (Zithromax 50 05:00 Date of Service: Nov 01, 2024 Billing Provider: JENNIFER VÁZQUEZ MD Common Visit Codes: 54625-[id number] INP/OBS CARE (HIGH) KARI MOLINA Nov 01, 2024 05:52 JENNIFER VÁZQUEZ MD Nov 01, 2024 09:33
[2024-11-01] MEDS: LEVALBUTEROL HCL 1.25 MG/3 ML NEB NEB SCH (06:02)
[2024-11-01] MEDS: IPRATROPIUM BROM 0.5 MG/2.5ML INH SOL NEB SCH (06:02)
[2024-11-01] MEDS: MEROPENEM 1GM IVPB 50 ML IV SCH (06:27)
[2024-11-01 06:29] LABS: Rapid Influenza A Negative (Negative); Rapid Influenza B Negative (Negative)
[2024-11-01 06:30] LABS: COVID19 ANTIGEN SOFIA FIA NEGATIVE (NEGATIVE)
[2024-11-01] MEDS ORDERED: VANCOMYCIN PER PHARMACY 0 MG IV SCH (07:15)
--- NOTE | 2024-11-01 07:21 | DVH ---
CLINICAL INFORMATION: 24 years old, Female; rule out pulmonary embolism. No other clinical informat ion provided. Indication for same day chest radiograph was shortness of breath. TECHNIQUE: Axial CTA images of the chest were obtained after the uneventful administration of 100 mL of Omnipaque 350 IV contrast. Coronal and sagittal reformatted images and MIP images were obtained, reviewed, and stored. One or more of the following dose reduction techniques were used: Automated exp osure control. Adjustment of mA and/or kV according to patient size. CTDIvol = 13.28, 11.84, 0.07, 0.07 mGy DLP = 369.5 mGy-cm COMPARISON: CT CT ANGIO CHEST CONTRAST on DOS: 12/29/23, CT CT ANGIO CHEST CONTRAST on DOS: 12/03/23. Chest radiograph dated 11/01/2024. FINDINGS: Pulmonary arteries: Respiratory motion artifact limits evaluation. There is no central pulmonary embo lism there is no right lobar pulmonary embolism. Can not exclude left lobar or bilateral segmental or subsegmental pulmonary emboli due to respiratory motion artifact. Aorta: No aneurysm or dissection. Cardiac: Heart size is within normal limits. No significant coronary artery calcification. Mediastinum/debbi: No mass or adenopathy. Lungs: Atelectasis and consolidation in the right lower lobe and right middle lobe, possibly involvin g small portions of the posterior right upper lobe no pneumothorax or pleural effusion. There is mode rate elevation of the right hemidiaphragm. Chest wall: No mass or other abnormality. Upper abdomen: Visualized structures in the upper abdomen are unremarkable, although evaluation of th e parenchymal organs is limited on arterial phase images. Bones: No fracture or suspicious intraosseous lesions. IMPRESSION: 1. Limited evaluation for pulmonary embolism due to respiratory motion artifact. No central pulmonary embolism or right lobar pulmonary embolism. Can not exclude left lobar or bilateral segmental or sub segmental pulmonary emboli due to respiratory motion artifact. 2. Atelectasis and consolidation in the right lower lobe and right middle lobe, possibly involving sm all portions of the posterior right upper lobe. 3. Moderate elevation of the right hemidiaphragm.
--- NOTE | 2024-11-01 07:55 | DVH ---
Bilateral Chest Sonogram Clinical history: Pleural effusion evaluation Technique: Limited sonographic evaluation of the right and left chest was performed. Findings/Impression: There is a no pleural effusion.
--- NOTE | 2024-11-01 08:12 | ECG ---
[facility] Test Date: 2024-11-01 Test Time: 00:34:08 Pat Name: STEPHANI DEL CID Department: ED Room: [address] [place] [address] Gender: F Gamer: SWATHI : 2000 Requested By: SUSANNE VERGARA Order Number: [id number] Reading MD: Garo Edmond Measurements Intervals [place] Rate: 113 P: 31 WI: 165 QRS: 7 QRSD: 71 T: 17 QT: 320 QTc: 439 Interpretive Statements Sinus tachycardia Electronically Signed On 11-02-2024 8:53:40 PST by Garo Edmond Please click the below link to view image of tracing.
[2024-11-01] MEDS ORDERED: BACLOFEN 10 MG TAB PO SCH (08:45)
--- NOTE | 2024-11-01 08:54 | DVH ---
US BiLat Lower DVT HISTORY: r/o pe COMPARISON: None TECHNIQUE: Duplex Doppler evaluation of the deep venous system of the lower extremity from the common femoral veins, superficial femoral vein, great saphenous vein, deep femoral vein, popliteal vein, an d calf veins, including color Doppler and spectral/pulsed waveform analysis, was performed. FINDINGS: Right: - Common femoral vein: Compressible - Deep femoral vein: Compressible - Femoral vein: Compressible - Popliteal vein: Compressible - Posterior tibial vein: Waveforms present - Other: Nothing Left: - Common femoral vein: Compressible - Deep femoral vein: Compressible - Femoral vein: Compressible - Popliteal vein: Compressible - Posterior tibial vein: Waveforms present - Other: Nothing IMPRESSION: No right or left lower extremity deep venous thrombosis.
[2024-11-01 09:11] LABS: Urine Bacteria None Seen /hpf (None Seen)
[2024-11-01] MEDS: BACLOFEN 10 MG TAB PO SCH ×2 (09:22→16:57)
[2024-11-01] MEDS: HYDROmorphone HCL 2 MG TAB PO PRN (09:23)
[2024-11-01 09:45] LABS: Urine Blood 1+ /uL (Negative); Urine Clarity Clear (Clear); Urine Color Colorless (Yellow); Urine Protein, UAD Negative (Negative); Urine Specific Gravity 1.014 (1.001-1.035); Urine Squamous Epithelial Cell FEW /hpf (<5); Urine Urobilinogen Normal (Negative); Urine WBC 2 /HPF (0-5); Urine pH 6.5 (5.0-9.0)
[2024-11-01] MEDS ORDERED: ENOXAPARIN SOD 30 MG/0.3 ML SYRINGE SC SCH ×2 (09:45→10:00)
[2024-11-01] MEDS: ENOXAPARIN SOD 40 MG/0.4 ML SYRINGE SC SCH (10:49)
[2024-11-01] MEDS: VANCOMYCIN 1GM/250ML KIT 250 ML IV SCH (13:11)
--- NOTE | 2024-11-01 14:16 | DVHPNRES ---
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 Patient denies additional past medical history of relevance but states that her blood pressure runs in the lower side. The patient presented to the ED due to shortness of breath associated with sputum production without being able to expectorate due to her condition. The patient reported shortness of breath, phlegm associated with fever but no chills. The patient denied chest pain, abdominal pain, nausea, vomiting or any other symptoms. The patient also denied any sick contacts recently. Initial chest x- ray revealed significant consolidation in the right lung base and middle lobe with a opacities extending from the base to the upper lobe. A CT angio of the chest was performed showing no evidence of pulmonary embolism but with consolidation in the right middle and lower lobes. The patient was started on vancomycin, meropenem, azithromycin for sepsis due to right lung bacterial pneumonia. Patient was admitted for further assessment and management. Patient seen and examined at bedside. Patient is bed-bound quadriplegia due to her underlying condition. Patient is alert and oriented in person, place and time. Patient was currently saturating 96% on 2 L of oxygen through nasal cannula. The patient also was having sinus tachycardia at 130-140s due to anxiety which was relieved by ativan single dose and 500cc bolus of saline. The case was also discussed with pulmonology Dr. Borden which recommended bronchoscopy tomorrow a.m.. Pros and cons were discussed with the patient at bedside and patient decided to perform bronchoscopy and continue a full code status. By this time, we will continue on broad-spectrum antibiotics, and respiratory therapy with levalbuterol and ipratropium med nebs. ROS Constitutional: Denies weight loss, fever and chills. HEENT: Denies changes in vision and hearing. Respiratory: Reports mild shortness of breath with lots of secretion but inability to cough. Cardiovascular: Denies chest discomfort or palpitations GI: Denies abdominal pain, nausea, vomiting and diarrhea. : Denies dysuria and urinary frequency. Musculoskeletal: Denies myalgias and joint pain Skin: Denies rash and pruritus. Neurological: Denies dizziness, headache, vision or hearing problems Objective vital signs Vital Sign Date Time Temp Pulse Resp B/P (MAP) Pulse Ox O2 Delivery O2 Flow Rate FiO2 11/01/24 13:42 127 21 97 11/01/24 13:36 Nasal Cannula* 4 36 11/01/24 10:00 98.5 98/61 (73) 98.5 Total Intake and Output 10/31/24 10/31/24 11/01/24 15:00 23:00 07:00 Intake Total 3200 ml Balance 3200 ml medications Current Medications Medications Dose Ordered Sig/Carlos Route Start Time Stop Time Status Last Admin Dose Admin Azithromycin 250 ml @ 125 mls/hr DAILY@0500 IV 11/02/24 05:00 Meropenem 50 ml @ 17 mls/hr Q8HR IV 11/01/24 06:00 11/01/24 06:27 17 MLS/HR Ipratropium [place] 0.5 mg Q4HR NEB 11/01/24 06:00 11/01/24 13:36 0.5 MG Levalbuterol HCl 1.25 mg Q4HR NEB 11/01/24 06:00 11/01/24 13:36 1.25 MG Acetaminophen 650 mg Q6HP PRN PO 11/01/24 06:00 Vancomycin HCl 0 ml @ 0 mls/hr UD IV 11/01/24 07:15 Hydromorphone HCl 0.5 mg Q8HP PRN PO 11/01/24 08:45 11/01/24 09:23 0.5 MG Baclofen 20 mg Q8HR PO 11/01/24 09:19 11/01/24 09:22 20 MG Vancomycin HCl 250 ml @ 250 mls/hr Q8H IV 11/01/24 13:00 11/01/24 13:11 250 MLS/HR Enoxaparin Sodium 40 mg DAILY SC 11/01/24 10:37 11/01/24 10:49 40 MG Examination Physical Examination General: Patient alert and oriented in person, place and time. Patient is quadriplegic and unable to expectorate. Patient following commands. HEENT: Normocephalic, atraumatic, moist mucous membranes Respiratory/pulmonary: There are diminish/absent breath sounds on right lung base and middle lobe with very diminished at the apice as well. left lung sounds grossly clear. no wheezes. Cardiovascular: Normal heart sounds S1 and S2 with no associated murmurs Abdomen: Abdomen nondistended, there is no pain to palpation in any of the abdominal quadrants, no palpable masses. Extremities: There is no peripheral edema present at the lower extremities. Patient unable to move upper or lower extremities due to her condition. Peripheral Pulses: 3+ Radial (R). 3+ Radial (L). 3+ Dorsalis pedis (R). 3+ Dorsalis pedis(L) Skin: No rashes or pruritus, there is no sacral edema present at this time. Neurological: Patient is quadriplegic, only able to move head and minimally shoulders. patient is alert and oriented x3. laboratory and microbiology Laboratory Tests 11/01/24 01:00 Test 11/01/24 01:00 Range/Units Serum Glucose 125 H 74-106 mg/dL Problem List/Assessment/Plan Problem List/Assessment/Plan Assessment/Plan Acute hypoxic respiratory failure due to right lung bacterial gram+/- pneumonia Possible aspiration pneumonia Sepsis likely due to above Possible mucus plug on right lower lobe -initial chest x-ray showed complete opacities on right lung especially right lung base and mid lobe. -currently on 2 L of oxygen through nasal cannula -right lung beckett are diminished and absent at the base and middle lobe. -CT angio of the chest showed no pulmonary embolism but showed diffuse consolidations in the right middle and lower lobes. -Chest U/S showed no evidence of pleural effusion -Start IV vancomycin -Start IV meropenem -Start IV azithromycin -continue respiratory therapy with levalbuterol and ipratropium med nebs. -consulted pulmonology, which is on board -Will perform bronchoscopy tomorrow AM on right lung -Blood, sputum and urine cultures were collected. Quadriplegia secondary to intracranial bleed in July of 2023 -patient was treated for stroke and received dose of alteplase which resulted in intracranial bleeding -patient unable to move upper or lower extremities. Only moves head and minimally bilateral shoulders. Patient is alert and oriented x3. Sinus tachycardia likely due to anxiety -patient had episode of sinus tachycardia in the 130s-140s that resolved after Ativan administration -continuous cardiac monitoring -EKG showed sinus tachycardia, no ST segment elevation or depression or any T- wave abnormalities. Patient denied chest pain. -patient received 500 cc bolus of normal saline Hx of low blood pressure -Monitor ACP, discussed with the patient and family at bedside. Goals of care discussed with the patient and family at bedside for >30min, FULL CODE Plan discussed with Dr. Salinas Plan discussed with: Patient (Plan discussed with the patient we agreed and understood.) My Orders My Orders Orders - SIDRA WILSON Procedure Category Date Status Time Chest Ultrasound US 11/01/24 Resulted 07:06 Enoxaparin Sodium PHA 11/01/24 In Process (Lovenox) 10:37 Date of Service: Nov 01, 2024 Billing Provider: JENNIFER VÁZQUEZ MD Common Visit Codes: 76319-[id number] INP/OBS CARE(HIGH) SIDRA WILSON RESIDENT Nov 01, 2024 14:16 JENNIFER VÁZQUEZ MD Nov 08, 2024 23:42
[2024-11-01] MEDS: SODIUM CHLORIDE 0.9% 250 ML IV ONE (14:53)
[2024-11-01] MEDS: LORazepam 2MG/ML-1ML VIAL IV ONE ×2 (14:53→16:13)
[2024-11-01] MEDS: LORazepam 2MG/ML-1ML VIAL ONE (15:11)
[2024-11-01] MEDS: SODIUM CHLORIDE 0.9% 500 ML IV ONE (15:18)
--- NOTE | 2024-11-01 15:59 | ECG ---
[facility] Test Date: 2024-11-01 Test Time: 15:58:41 Pat Name: STEPHANI DEL CID Department: ER Room: [address] [place] [address] Gender: F Recruitment Internship: MATT : 2000 Requested By: KARI MOLINA Order Number: [id number] Reading MD: Garo Edmond Measurements Intervals [place] Rate: 128 P: 54 [place]: 167 QRS: 52 QRSD: 81 T: 25 QT: 294 QTc: 429 Interpretive Statements Sinus tachycardia Artifact in lead(s) I,II,aVR Electronically Signed On 11-02-2024 8:55:51 PST by Garo Edmond Please click the below link to view image of tracing.
--- NOTE | 2024-11-01 19:17 | DVHINCON2 ---
Date of service: Nov 01, [address] Fabien Cuevas Reason for Consultation Aspiration pneumonia History of Present Illness 24-year-old woman history of quadriplegia secondary to intracranial hemorrhage due to altered place administration in July 24, 2023 presented with shortness of breath. CT chest was notable for right lower lobe atelectasis suggestive of aspiration. She has been noting increasing shortness of breath for the last three days. She was incontinent unable to cough. She denies having any sick contacts. She denies any fever congestion, or shortness of breath. Denies any dyspnea or palpitations. Chest x-ray demonstrated dense opacification of the right lower lung field. Pulmonary consultation is called for evaluation of shortness of breath, possible mucus plugging and evaluation for bronchoscopy. Review of systems: 14 point review of systems is negative unless otherwise noted above. Past medical history: Quadriplegia secondary to intracranial hemorrhage and outs placed administration in 2022 Past surgical history: Intubation, tracheostomy, peg tube Medications: Reviewed Allergies: No known drug allergies. Family history: No family history of premature CAD. No family history of lung disease Social history: Nonsmoker. No alcohol or illicit drug use. Family History: Patient reports no known family medical history. Allergies: Coded Allergies: NO KNOWN ALLERGIES (Unverified , 12/03/23) Home Meds Active Scripts Levofloxacin Hemihydrate (LEVOFLOXACIN) 750 Mg Tab, 750 MG PO DAILY for 5 Days, #5 TAB Prov:CANDY BELCHER RESIDENT 12/31/23 Zolpidem Tartrate (Ambien) 5 Mg Tab, 5 MG PO HS PRN, #30 TAB Prov:KHADIJAH MCKINNEY MD 12/23/23 Docusate Sodium (Colace) 100 Mg Cap, 1 CAP PO BID PRN, #30 CAP Prov:KHADIJAH MCKINNEY MD 12/23/23 Baclofen (Baclofen) 5 Mg Tab, 10 MG PO TID, #90 TAB Prov:KHADIJAH MCKINNEY MD 12/23/23 Hydromorphone Hcl (Dilaudid) 2 Mg Tab, 0.5 TAB PO TID PRN, #30 TAB Prov:KHADIJAH MCKINNEY MD 12/23/23 Reported Medications Enoxaparin Sodium (Enoxaparin Sodium) 30 Mg/0.3 Ml Inj, SC 3/26/24 Current Medications Current Medications Medications (Trade) Dose Ordered Sig/Carlos Route PRN Reason Start Time Stop Time Status Last Admin Azithromycin 250 ml @ 125 mls/hr DAILY@0500 IV 11/02/24 05:00 Meropenem 50 ml @ 17 mls/hr Q8HR IV 11/01/24 06:00 11/01/24 14:59 Ipratropium [place] (Atrovent Medneb) 0.5 mg Q4HR NEB 11/01/24 06:00 11/01/24 18:14 Levalbuterol HCl (Xopenex Medneb) 1.25 mg Q4HR NEB 11/01/24 06:00 11/01/24 18:14 Acetaminophen (Tylenol Tablet) 650 mg Q6HP PRN PO PAIN SCALE 1-3 OR TEMP>100.4 11/01/24 06:00 Enoxaparin Sodium (Lovenox) 30 mg DAILY SC 11/01/24 10:00 11/01/24 09:37 DC Vancomycin HCl 0 ml @ 0 mls/hr UD IV 11/01/24 07:15 Baclofen (Liorisal Tablet) 20 mg Q8HP PO 11/01/24 08:45 11/01/24 09:19 DC Hydromorphone HCl (Dilaudid Tablet) 0.5 mg Q8HP PRN PO SEVERE PAIN (7-10 PAIN SCALE) 11/01/24 08:45 11/01/24 09:23 Baclofen (Liorisal Tablet) 20 mg Q8HR PO 11/01/24 09:19 11/01/24 14:17 DC 11/01/24 09:22 Enoxaparin Sodium (Lovenox) 40 mg DAILY SC 11/01/24 09:45 11/01/24 10:37 DC Vancomycin HCl 250 ml @ 250 mls/hr Q8H IV 11/01/24 13:00 11/01/24 13:11 Enoxaparin Sodium (Lovenox) 40 mg DAILY SC 11/01/24 10:37 11/01/24 10:49 Baclofen (Liorisal Tablet) 20 mg Q8HR PO 11/01/24 15:30 11/01/24 16:57 Vital Signs Vital Signs Date Time Temp Pulse Resp B/P (MAP) Pulse Ox O2 Delivery O2 Flow Rate FiO2 11/01/24 18:23 143 1/28/25 18:20 22 98 11/01/24 18:14 Nasal Cannula* 4 36 11/01/24 18:00 104/58 (73) 11/01/24 15:00 99.0 99.0 Physical Exam Gen.: Patient lying in bed in no apparent distress. On supplemental oxygen. Head: Normocephalic, atraumatic Eyes: EOMI/PERRLA. Ears: Normal hearing. Normal anatomy. Neck/trachea: Trachea midline, supple. Tracheostomy scar. Nose: Normal external anatomy. Mouth: Moist mucous membranes. Chest: Decreased air entry bilaterally. No wheezing. Right lower lobe rhonchi. Dullness to percussion in right lower lung field. Cardio vascular: Positive S1, positive S2. Regular rate and rhythm. Abdomen: Positive bowel sounds in all 4 quadrants. Soft, non-tender, non- distended. : Deferred. Rectal: Deferred Skin: Warm, dry. Extremities: 2+ radial pulses bilaterally. No lower extremity edema. Neuro: Awake, alert, oriented x3. Quadriplegia Labs/Diagnostic Data Labs Test 11/01/24 08:00 11/01/24 05:41 11/01/24 04:44 11/01/24 01:00 Range/Units Urine Color Colorless Yellow Urine Clarity Clear Clear Urine pH 6.5 5.0-9.0 Urine Specific [place] 1.014 1.001-1.035 Urine Protein Negative Negative Urine Ketones Negative Negative Urine Blood 1+ H Negative /uL Urine Nitrite Negative Negative Urine Bilirubin Negative Negative Urine Urobilinogen Normal Negative mg/dL Urine Leukocyte Esterase Negative Negative /uL Urine RBC 1 0 - 4 /hpf Urine Microscopic WBC 2 0-5 /HPF Urine Squamous Epithelial Cells Few <5 /hpf Urine Bacteria None seen None Seen /hpf Urine Glucose Normal Normal mg/dL Influenza Type A Antigen Negative Negative Influenza Type B Antigen Negative Negative SARS-CoV-2 Antigen (Rapid) Negative NEGATIVE Lactic Acid Level 0.7 0.4-2.0 mmol/L White Blood Count 8.6 4.4-10.8 10^3/uL Red Blood Count 4.60 4.0-5.20 10^6/uL Hemoglobin 13.3 12.2-16.2 g/dL Hematocrit 40.0 36.0-46.0 % Mean Corpuscular Volume 86.9 80.0-100.0 fL Mean Corpuscular Hemoglobin 29.0 28.0-32.0 pg Mean Corpuscular Hemoglobin Concent 33.4 32.0-36.0 g/dL Red Cell Distribution Width 17.5 H 11.8-14.3 % Platelet Count 213 140-450 10^3/uL Mean Platelet Volume 8.9 6.9-10.8 fL Neutrophils (%) (Auto) 78.5 37.0-80.0 % Lymphocytes (%) (Auto) 10.2 10.0-50.0 % Monocytes (%) (Auto) 9.7 0.0-12.0 % Eosinophils (%) (Auto) 1.2 0.0-7.0 % Basophils (%) (Auto) 0.4 0.0-2.0 % Neutrophils # (Auto) 6.7 1.6-8.6 10 ^3/uL Lymphocytes # (Auto) 0.9 0.4-5.4 10 ^3/uL Monocytes # (Auto) 0.8 0-1.3 10 ^3/uL Eosinophils # (Auto) 0.1 0-0.8 10 ^3/uL Basophils # (Auto) 0 0-0.2 10 ^3/uL Nucleated Red Blood Cells 0.1 % Sodium Level 140 136-145 mmol/L Potassium Level 3.8 3.5-5.1 mmol/L Chloride Level 104 98-107 mmol/L Carbon Dioxide Level 26 20-31 mmol/L Anion Gap 10 5-15 Blood Urea Nitrogen 15 9-23 mg/dL Creatinine 0.36 L 0.550-1.02 mg/dL Glomerular Filtration Rate Calc 144 >90 mL/min BUN/Creatinine Ratio 41.7 H 10.0-20.0 Serum Glucose 125 H 74-106 mg/dL Hemoglobin A1c 5.6 <5.7 % A1C Calcium Level 9.7 8.7-10.4 mg/dL B-Type Natriuretic Peptide 14.82 0-100 pg/mL Beta HCG, Quantitative 0.8 L 1.5-4.2 mIU/mL Assessment Impression: Acute hypoxic respiratory failure Pneumonia, aspiration versus community-acquired Sepsis due to pneumonia Pulmonary embolism ruled out Mucus plugging of right lower lobe Atelectasis Tracheostomy, history Plan: Obtain PT and INR Obtain consent for bronchoscopy with bronchoalveolar lavage, possible brushings, possible biopsy. Plan for procedure tomorrow morning. NPO after midnight Continue bronchodilators Start Mucomyst Start chest physiotherapy Head of bed elevation Aspiration precautions Continue antibiotics Follow up cultures DVT prophylaxis Prognosis: Poor given multiple comorbidities. Rest of plan per hospitalist and other consultants. Thank you Dr. Cuevasfor allowing me to participate in this patient's care. Further recommendations will depend on patient's clinical course. Please do not hesitate to contact me if you have any questions or concerns. This medical document was created using an electronic medical record system with [employer] dictation system. Although this document has been carefully reviewed, there may still be some phonetic and typographical errors. These areas are purely typographical due to imperfections of the software programs, and do not reflect any compromise in the patient's medical care. Plan discussed with: Patient, Spouse, Other (RN, MD) JAVIER NELSON MD Nov 01, 2024 19:17
[2024-11-01 20:09] LABS: INR 1.05 (0.9-1.15); Prothrombin Time 11.1 sec (9.3-11.8)
[2024-11-02] VITALS (11 sets, daily range): BP systolic 112–121; BP diastolic 77–91; PULSE 58–130; RESP 17–21; O2SAT 68–99
--- NOTE | 2024-11-02 04:41 | DVH ---
CHEST RADIOGRAPH Indication: Aspiration pneumonia, RLL atelectasis, interval changes Technique: Single frontal view of the chest was obtained Comparison: XY CHEST PORTABLE on DOS: 11/01/24 FINDINGS: Lines and Tubes: None Lungs: Right hemidiaphragm is elevated. Right basilar consolidation. Pleura: No pneumothorax. Can not exclude pleural effusion. No pneumothorax. Cardiomediastinal contours: Unremarkable Bones: No acute osseous abnormality. IMPRESSION: 1. Right basilar consolidation is unchanged.
[2024-11-02] MEDS: AZITHROMYCIN 500MG/ 250ML 250 ML IV SCH (04:52)
[2024-11-02 05:46] LABS: Basophils # (auto) 0 10 ^3/uL (0-0.2); Basophils % (auto) 0.5 % (0.0-2.0); Eosinophils # (auto) 0 10 ^3/uL (0-0.8); Eosinophils % (auto) 0.3 % (0.0-7.0); Hematocrit 34.3 % (36.0-46.0); Hemoglobin 11.5 g/dL (12.2-16.2); Lymphocytes # (auto) 1.6 10 ^3/uL (0.4-5.4); Lymphocytes % (auto) 28.1 % (10.0-50.0); Mean Corpuscular Hgb Conc. 33.5 g/dL (32.0-36.0); Mean Corpuscular Volume 86.5 fL (80.0-100.0); Monocytes # (auto) 0.8 10 ^3/uL (0-1.3); Monocytes % (auto) 13.8 % (0.0-12.0); Neutrophils # (auto) 3.2 10 ^3/uL (1.6-8.6); Neutrophils % (auto) 57.3 % (37.0-80.0); Nucleated Red Blood Cells % 0.1 %; Platelet Count (auto) 198 10^3/uL (140-450); Red Blood Cells 3.97 10^6/uL (4.0-5.20); Red Cell Distribution Width 18.2 % (11.8-14.3); White Blood Cell 5.5 10^3/uL (4.4-10.8)
[2024-11-02 06:06] LABS: Albumin 3.8 g/dL (3.2-4.8); Anion Gap 8 (5-15); Aspartate Aminotransferase 27 U/L (13-40); Calcium 9.3 mg/dL (8.7-10.4); Carbon Dioxide 28 mmol/L (20-31); Chloride 105 mmol/L (98-107); Glucose 91 mg/dL (74-106); Magnesium 1.8 mg/dL (1.6-2.6); Potassium 3.6 mmol/L (3.5-5.1); Sodium 141 mmol/L (136-145); Total Protein 6.2 g/dL (5.7-8.2)
[2024-11-02 06:07] LABS: Alanine Aminotransferase 46 U/L (7-40); Alkaline Phosphatase 119 U/L (46-116); BUN/Creatinine Ratio 19.2 (10.0-20.0); Bilirubin, Total 0.2 mg/dL (0.2-1.0); Blood Urea Nitrogen < 5 mg/dL (9-23)
--- NOTE | 2024-11-02 06:23 | ECG ---
[facility] Test Date: 2024-11-01 Test Time: 23:40:52 Pat Name: STEPHANI DEL CID Department: ER Room: [address] [place] [address] Gender: F Staffing Analyst: PAPO : 2000 Requested By: JENNIFER GRIFFITH Order Number: [id number] Reading MD: Garo Edmond Measurements Intervals [place] Rate: 116 P: 41 [place]: 157 QRS: 24 QRSD: 74 T: 29 QT: 311 QTc: 433 Interpretive Statements Sinus tachycardia Electronically Signed On 11-02-2024 8:57:06 PST by Garo Edmond Please click the below link to view image of tracing.
[2024-11-02] MEDS: ACETAMINOPHEN 325 MG TAB PO PRN (06:29)
--- NOTE | 2024-11-02 06:41 | DVH ---
EXAM: XR Chest, 1 View CLINICAL INDICATION: dec spo2 TECHNIQUE: Frontal view of the chest. COMPARISON: XY CHEST XRAY 1 VIEW on DOS: 11/02/24, XY CHEST PORTABLE on DOS: 11/01/24, XY CHEST GRACE BLE on DOS: 12/29/23, XY CHEST PORTABLE on DOS: 12/09/23, XY CHEST PORTABLE on DOS: 12/06/23 FINDINGS: LUNGS AND PLEURAL SPACES: Large right pleural effusion. No consolidation. No pneumothorax. HEART: Unremarkable. No cardiomegaly. MEDIASTINUM: Unremarkable. Normal mediastinal contour. BONES/JOINTS: Unremarkable. No acute fracture. OTHER FINDINGS: . IMPRESSION: Large right pleural effusion.
[2024-11-02] MEDS: VANCOMYCIN 1GM/250ML KIT 250 ML IV SCH ×2 (08:05→17:00)
[2024-11-02] MEDS: MEROPENEM 1GM IVPB 50 ML IV SCH (08:52)
[2024-11-02] MEDS ORDERED: MEROPENEM 1GM IVPB 50 ML IV SCH (09:00)
[2024-11-02] MEDS ORDERED: LIDOCAINE 2%HCL (LOCAL ANESTH.) INJ 20ML MDV ONE (09:37)
[2024-11-02] MEDS ORDERED: SODIUM CHLORIDE LOCK 10 ML ONE (09:38)
[2024-11-02] MEDS ORDERED: LIDOCAINE HCL 2% TOP JELLY 5ML TOP ONE (09:38)
[2024-11-02] MEDS ORDERED: EPINEPHrine HCL 1 MG/1 ML AMP ONE (09:38)
--- NOTE | 2024-11-02 10:46 | DVHPNRES ---
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 Patient denies additional past medical history of relevance but states that her blood pressure runs in the lower side. The patient presented to the ED due to shortness of breath associated with sputum production without being able to expectorate due to her condition. The patient reported shortness of breath, phlegm associated with fever but no chills. The patient denied chest pain, abdominal pain, nausea, vomiting or any other symptoms. The patient also denied any sick contacts recently. Initial chest x- ray revealed significant consolidation in the right lung base and middle lobe with a opacities extending from the base to the upper lobe. A CT angio of the chest was performed showing no evidence of pulmonary embolism but with consolidation in the right middle and lower lobes. The patient was started on vancomycin, meropenem, azithromycin for sepsis due to right lung bacterial pneumonia. Patient was admitted for further assessment and management. Patient seen and examined at bedside. Patient is alert and oriented in person, place and time despite being quadriplegic due to her condition. The patient is currently on 4 L of oxygen through nasal cannula saturating 93%. The patient is still having persistent sinus tachycardia likely due to infection/anxiety. Patient is currently NPO waiting for bronchoscopy with a bronchoalveolar lavage and possible biopsy at 2:00 p.m. today. Meanwhile we will continue on vancomycin, meropenem, azithromycin and respiratory therapy med nebs. ROS Constitutional: Denies weight loss, fever and chills. HEENT: Denies changes in vision and hearing. Respiratory: Reports shortness of breath and secretions. Unable to cough. Cardiovascular: Denies chest discomfort or palpitations GI: Denies abdominal pain, nausea, vomiting and diarrhea. : Denies dysuria and urinary frequency. Musculoskeletal: Denies myalgias and joint pain Skin: Denies rash and pruritus. Neurological: Denies dizziness, headache, vision or hearing problems Objective vital signs Vital Sign Date Time Temp Pulse Resp B/P (MAP) Pulse Ox O2 Delivery O2 Flow Rate FiO2 11/02/24 10:39 92 Nasal Cannula* 4 36 11/02/24 09:00 98 21 105/65 (78) 11/02/24 08:00 99.3 Total Intake and Output 11/01/24 11/01/24 11/02/24 15:00 23:00 07:00 Intake Total 317 ml 800 ml Output Total 300 ml 3100 ml 1500 ml Balance 17 ml -2300 ml -1500 ml medications Current Medications Medications Dose Ordered Sig/Carlos Route Start Time Stop Time Status Last Admin Dose Admin Azithromycin 250 ml @ 125 mls/hr DAILY@0500 IV 11/02/24 05:00 11/02/24 04:52 125 MLS/HR Ipratropium Mio 0.5 mg Q4HR NEB 11/01/24 06:00 11/02/24 06:32 0.5 MG Levalbuterol HCl 1.25 mg Q4HR NEB 11/01/24 06:00 11/02/24 06:32 1.25 MG Acetaminophen 650 mg Q6HP PRN PO 11/01/24 06:00 11/02/24 06:29 650 MG Vancomycin HCl 0 ml @ 0 mls/hr UD IV 11/01/24 07:15 Hydromorphone HCl 0.5 mg Q8HP PRN PO 11/01/24 08:45 11/02/24 08:52 0.5 MG Enoxaparin Sodium 40 mg DAILY SC 11/01/24 10:37 11/02/24 10:21 40 MG Baclofen 20 mg Q8HR PO 11/01/24 15:30 11/02/24 06:21 20 MG Vancomycin HCl 250 ml @ 250 mls/hr Q8H IV 11/02/24 08:00 11/02/24 08:05 250 MLS/HR Meropenem 50 ml @ 17 mls/hr Q8H IV 11/02/24 08:00 11/02/24 08:52 17 MLS/HR Examination Physical Examination General: Patient alert and oriented in person, place and time. Patient is quadriplegic and unable to expectorate. Patient following commands. HEENT: Normocephalic, atraumatic, moist mucous membranes Respiratory/pulmonary: There are diminish/absent breath sounds on right lung base and middle lobe with very diminished at the apice as well. left lung sounds grossly clear. no wheezes. Cardiovascular: Normal heart sounds S1 and S2 with no associated murmurs Abdomen: Abdomen nondistended, there is no pain to palpation in any of the abdominal quadrants, no palpable masses. Extremities: There is no peripheral edema present at the lower extremities. Patient unable to move upper or lower extremities due to her condition. Peripheral Pulses: 3+ Radial (R). 3+ Radial (L). 3+ Dorsalis pedis (R). 3+ Dorsalis pedis(L) Skin: No rashes or pruritus, there is no sacral edema present at this time. Neurological: Patient is quadriplegic, only able to move head and minimally shoulders. patient is alert and oriented x3. laboratory and microbiology Laboratory Tests 11/02/24 04:43 Test 11/02/24 04:43 Range/Units Serum Glucose 91 74-106 mg/dL Microbiology Date/Time Source Procedure Growth Status 11/01/24 08:00 Voided Urine Urine Culture - Preliminary Resulted 11/01/24 04:44 Blood Blood Culture - Preliminary NO GROWTH AFTER 24 HOURS OF INCUBATION. Resulted Problem List/Assessment/Plan Problem List/Assessment/Plan Assessment/Plan Acute hypoxic respiratory failure due to right lung bacterial gram+/- pneumonia Possible aspiration pneumonia Sepsis likely due to above Possible mucus plug on right lower lobe -initial chest x-ray showed complete opacities on right lung especially right lung base and mid lobe. -currently on 2 L of oxygen through nasal cannula -right lung beckett are diminished and absent at the base and middle lobe. -CT angio of the chest showed no pulmonary embolism but showed diffuse consolidations in the right middle and lower lobes. -Chest U/S showed no evidence of pleural effusion -Start IV vancomycin -Start IV meropenem -Start IV azithromycin -continue respiratory therapy with levalbuterol and ipratropium med nebs. -consulted pulmonology, which is on board -Will perform bronchoscopy today in at 2:PM -Blood, sputum and urine cultures were collected. Quadriplegia secondary to intracranial bleed in July of 2023 -patient was treated for stroke and received dose of alteplase which resulted in intracranial bleeding -patient unable to move upper or lower extremities. Only moves head and minimally bilateral shoulders. Patient is alert and oriented x3. Sinus tachycardia likely due to anxiety -patient had episode of sinus tachycardia in the 130s-140s that resolved after Ativan administration -continuous cardiac monitoring -EKG showed sinus tachycardia, no ST segment elevation or depression or any T- wave abnormalities. Patient denied chest pain. -patient received 500 cc bolus of normal saline Hx of low blood pressure -Monitor ACP, discussed with the patient and family at bedside. Goals of care discussed with the patient and family at bedside for >30min, FULL CODE Plan discussed with Dr. Salinas Plan discussed with: Patient My Orders My Orders Orders - SIDRA WILSON Procedure Category Date Status Time Obtain Consent For: ORDERS 11/02/24 Transmitted 08:23 Date of Service: Nov 02, 2024 Billing Provider: JENNIFER VÁZQUEZ MD Common Visit Codes: [id number] INP/OBS CARE(HIGH) SIDRA WILSON RESIDENT Nov 02, 2024 10:46 JENNIFER VÁZQUEZ MD Nov 08, 2024 23:46
[2024-11-02] MEDS ORDERED: ALBU108A5 (11:33)
[2024-11-02] MEDS ORDERED: BACL10TA (11:33)
[2024-11-02] MEDS ORDERED: DOCU-265 (11:35)
[2024-11-02] MEDS ORDERED: ENOX40IN7 SC (11:37)
[2024-11-02] MEDS ORDERED: PREG75CA90 (11:38)
[2024-11-02] MEDS ORDERED: GAB100C (11:38)
[2024-11-02] MEDS: MIDAZOLAM HCL 5 MG/ML-1ML VIAL ONE (14:41)
[2024-11-02] MEDS: diphenhdrAMINE HCL 50 MG/1 ML VL ONE (14:41)
[2024-11-02] MEDS: fentaNYL CITRATE 100 MCG/2 ML VL ONE (14:41)
[2024-11-02] MEDS: GLYCOPYRROLATE 0.2 MG/ML 1ML VIAL ONE (14:41)
[2024-11-02] MEDS: ACETYLCYSTEINE 20%(200MG/ML) SOL 4ML NEB STA (14:53)
[2024-11-02] MEDS: MIDAZOLAM HCL 2MG/2ML 2ml VIAL (1mg/ml) ONE (15:02)
[2024-11-02] MEDS: SUCCINYLCHOLINE CHLORIDE 20 MG/ML 10ML VIAL IV ONE (15:05)
[2024-11-02] MEDS ORDERED: ETOMIDATE (2MG/ML) 20ML VIAL IV ONE (15:06)
[2024-11-02] MEDS: ETOMIDATE (2MG/ML) 20ML VIAL IV ONE (15:08)
[2024-11-02] MEDS: ROCURONIUM 10MG/ML 10ML VIAL IV ONE (15:09)
[2024-11-02] MEDS: DexAMETHasone SOD PHOS 10MG/1ML VIAL INJ IV ONE (15:15)
--- NOTE | 2024-11-02 15:48 | DVHNC2 ---
Procedure - Bronchoscopy procedure note: Indications: Right lower lobe atelectasis, Possible mucous plugging. Medicines: See building associate notes. Versed 7 mg, fentanyl 75 mcg, glycopyrrolate 0.2 mg, Benadryl 50 mg, etomidate 16 mg, rocuronium 50 Complications: None Procedure: Patient medications and allergies reviewed. The risks and benefits of the procedure and the sedation options and risk were discussed with the patient's healthcare proxy. All questions were answered and informed consent was obtained. Patient identification and proposed procedure were verified prior to the procedure by the physician, and a nurse, and the respiratory therapist in ICU room. The heart rate, respiratory rate, oxygen saturations, blood pressure, adequacy of pulmonary ventilation, and response to care were monitored throughout the procedure. The physical status of the patient was reassessed after the procedure. After obtaining informed consent, the bronchoscope was introduced through the endotracheal tube and advanced into the trachea bronchial tree of both lungs. The secretions in the right middle and right lower lobe were very thick and viscous. I was unable to aspirate them via the endoscopy suite bronchoscope. Patient required emergent intubation. Etomidate 16 mg and rocuronium 50 mg were utilized for induction and emergent rapid sequence intubation was performed. See separate procedure note for full details. Once patient was connected to ventilator we proceeded with a disposable bronchoscope and suctioned out copious amounts of secretions from the right middle and right lower lobe bronchi. A right lower lobe BAL was performed. Specimen was sent for Gram stain and culture. Right upper lobe mucous plugging was minimal. Scant secretions were noted throughout the left lung. These were suctioned out as well. The procedure was accomplished without difficulty. The patient tolerated the procedure well. Findings: The trachea is in normal caliber. The josy is sharp. The tracheobronchial tree of the right lung was examined to at least the first subsegmental level. The bronchial mucosa was inflamed. The anatomy in the right lung are normal. There are no endobronchial lesions. There was copious whitish secretions from right main stem bronchus onward throughout R1-R10. The secretions and R4 through R10 were thick, viscous and difficult to aspirate via GI suite bronchoscope. Large-bore disposable bronchoscope was utilized to suction secretions from the right middle and right lower lobe areas. Right lower lobe (RLL) Bronchoalveolar lavage (BAL) obtained. RLL BAL sent for gram stain and culture, and fungal culture. The left upper lobe, lingula, and left lower lobe were examined to at least the first subsegmental level. Bronchial mucosa and anatomy in the left upper lobe and lingula are normal. There were no endobronchial lesions. There was scant whitish secretions throughout. These reasonably cleared. There was no active bleeding at the completion of the procedure. Estimated blood loss: Less than 5 mL. Impression: Right middle and lower lobe atelectasis due to mucous plugging Mucous plugging from R1-L10 RLL BAL performed Recommendation: Follow-up RML BAL results. Procedure codes: 79089, bronchoscopy, rigid and flexible, including fluoroscopic guidance, one performed; with bronchial endobronchial broncho-alveolar lavage, single or multiple sites JAVIER NELSON MD Nov 02, 2024 15:48
--- NOTE | 2024-11-02 15:49 | DVHNC2 ---
Procedure - Procedure: Endotracheal Intubation INDICATION: Acute respiratory failure, accessory muscle usage Physician: Javier Borden MD CONSENT: Emergent procedure. Implied. Time out time:1518 pm Patient medications and allergies reviewed. Patient identification and proposed procedure were verified prior to the procedure by the physician, and a nurse in the patient's room. The heart rate, respiratory rate, oxygen saturations, blood pressure, adequacy of pulmonary ve ntilation, and response to care were monitored throughout the procedure. The physical status of the patient was reassessed after the procedure. PROCEDURE SUMMARY: A time out was performed. My hands were washed immediately prior to the procedure. I wore a surgical cap, mask with protective eyewear, gown and gloves throughout the procedure. The patient was placed on a field assembly supervisor including continuous pulse oximetry. The patient received 16 mg Etomidate and 50 mg rocuronium for induction. Cricoid pressure was maintained from time induction agent was given to time of cuff balloon inflation. Using a MAC 4 GlideoScope and a size 7.5 endotracheal tube with stylet, the patient was intubated on the 1 attempt. The stylet was removed and cuff balloon was inflated. Appropriate endotracheal tube position was confirmed by direct visualization of vocal cord passage, fogging of the tube, CO 2 colorimetric indicator and symmetric breath sounds. The tube was secured at 19 cm at the lips. ETT was confirmed 2 cm above the josy with disposable bronchoscope. CPT Code: 12342 JAVIER BORDEN MD Nov 02, 2024 15:49
--- NOTE | 2024-11-02 16:05 | DVH ---
EXAM: XR Chest, 1 View CLINICAL INDICATION: PT IN PACU S/P BRONCHOSCOPY AND INTUBATION TECHNIQUE: Frontal view of the chest. COMPARISON: XY CHEST PORTABLE on DOS: 11/02/24, XY CHEST XRAY 1 VIEW on DOS: 11/02/24, XY CHEST GRACE BLE on DOS: 11/01/24, XY CHEST PORTABLE on DOS: 12/29/23, XY CHEST PORTABLE on DOS: 12/09/23 FINDINGS: LUNGS AND PLEURAL SPACES: Pulmonary venous congestion. Right basilar. No consolidation. No pneumo thorax. HEART: Unremarkable. No cardiomegaly. MEDIASTINUM: Unremarkable. Normal mediastinal contour. BONES/JOINTS: Unremarkable. No acute fracture. TUBES, LINES AND DEVICES: The endotracheal tube (ETT) is in satisfactory position. OTHER FINDINGS: . IMPRESSION: Pulmonary venous congestion.
--- NOTE | 2024-11-02 16:22 | DVH ---
EXAM: XY CHEST XRAY 1 VIEW TECHNIQUE: Single frontal chest radiograph CLINICAL HISTORY: POST NG PLACEMENT COMPARISON: XY CHEST PORTABLE on DOS: 11/02/24, XY CHEST PORTABLE on DOS: 11/02/24, XY CHEST XRAY 1 VIE W on DOS: 11/02/24 Findings/Impression: Frontal chest radiograph demonstrates no acute osseous or superficial soft tissue abnormalities. Endotracheal tube terminates 4.2 cm from the josy. Enteric tube is overlying the plane of the stoma ch. The trachea is midline. The cardiac silhouette and mediastinum are within normal limits. Right mid to lower lung field airspace opacity. No pneumothorax. Gaseous distended stomach versus bowel.
[2024-11-02] MEDS: DexAMETHasone SOD PHOS 4 MG/1ML SDV INJ IV ONE (16:30)
[2024-11-02 16:35] LABS: Base Excess 0.4 mmol/L (-2.0-3.0)
[2024-11-02 18:41] LABS: Base Excess -1.6 mmol/L (-2.0-3.0)
[2024-11-02] MEDS: KETOROLAC TROMETH 30 MG/ML 1ML VIAL IV ONE (22:30)
--- NOTE | 2024-11-02 23:29 | DVHPN2 ---
Progress Note - Dictate Date Seen: Nov 02, 2024 Has the PT tested + for MRSA If YES, has PT been informed?: No Medical Necessity Reason Pt with a Central, PICC or Fol: Yes The following are medically ne: Rhodes Catheter Reason for rhodes catheter: Strict I&O Subjective Patient seen and examined at bedside. Currently on BiPAP Overnight events reviewed. vital signs Vital Sign Date Time Temp Pulse Resp B/P (MAP) Pulse Ox O2 Delivery O2 Flow Rate FiO2 11/02/24 22:15 85 121/77 96 Facial BiPAP Mask 40 11/02/24 18:48 15 11/02/24 15:08 15.0 11/02/24 08:00 99.3 Total Intake and Output 11/01/24 11/01/24 11/02/24 14:59 22:59 06:59 Intake Total 317 ml 800 ml Output Total 300 ml 3100 ml 1500 ml Balance 17 ml -2300 ml -1500 ml medications Current Medications Medications Dose Ordered Sig/Carlos Route Start Time Stop Time Status Last Admin Dose Admin Azithromycin 250 ml @ 125 mls/hr DAILY@0500 IV 11/02/24 05:00 11/02/24 04:52 125 MLS/HR Ipratropium [place] 0.5 mg Q4HR NEB 11/01/24 06:00 11/02/24 22:15 0.5 MG Levalbuterol HCl 1.25 mg Q4HR NEB 11/01/24 06:00 11/02/24 22:15 1.25 MG Acetaminophen 650 mg Q6HP PRN PO 11/01/24 06:00 11/02/24 06:29 650 MG Vancomycin HCl 0 ml @ 0 mls/hr UD IV 11/01/24 07:15 Hydromorphone HCl 0.5 mg Q8HP PRN PO 11/01/24 08:45 11/02/24 08:52 0.5 MG Enoxaparin Sodium 40 mg DAILY SC 11/01/24 10:37 11/02/24 10:21 40 MG Baclofen 20 mg Q8HR PO 11/01/24 15:30 11/02/24 06:21 20 MG Meropenem 50 ml @ 17 mls/hr Q8H IV 11/02/24 08:00 11/02/24 18:00 17 MLS/HR Dexmedetomidine HCl 400 mcg/ Dextrose 100 ml @ 3 mls/hr Q24H IV 11/02/24 15:30 Vancomycin HCl 250 ml @ 250 mls/hr Q8H IV 11/02/24 17:00 11/02/24 17:00 250 MLS/HR objective Gen.: Patient lying in bed in no apparent distress. On BiPAP Head: Normocephalic, atraumatic Eyes: EOMI/PERRLA. Ears: Normal hearing. Normal anatomy. Neck/trachea: Trachea midline, supple. Tracheostomy scar. Nose: Normal external anatomy. Mouth: Moist mucous membranes. Chest: Decreased air entry bilaterally. No wheezing. Right lower lobe rhonchi. Dullness to percussion in right lower lung field. Cardio vascular: Positive S1, positive S2. Regular rate and rhythm. Abdomen: Positive bowel sounds in all 4 quadrants. Soft, non-tender, non- distended. : Deferred. Rectal: Deferred Skin: Warm, dry. Extremities: 2+ radial pulses bilaterally. No lower extremity edema. Neuro: Awake, alert, oriented x3. Quadriplegia laboratory and microbiology Laboratory Tests 11/02/24 04:43 Test 11/02/24 04:43 Range/Units Serum Glucose 91 74-106 mg/dL Assessment/Plan Impression: Acute hypoxic respiratory failure Pneumonia, aspiration versus community-acquired Sepsis due to pneumonia Pulmonary embolism ruled out Mucus plugging of right lower lobe Atelectasis Tracheostomy, history Events: Patient is s/p bronchoscopy with BAL Thick viscous secretions unable to remove with endo/bronchoscope She was intubated and placed on mechanical ventilator Used disposable bronch to clear thick viscous secretions Post procedure CXR demonstrated re-expansion of RML/RLL. See separate procedure notes for full details. Pulmonary toileting Pt was placed on Precedex CPAP trial in PACU - uneventfully extubated to BiPAP Head of bed elevation Aspiration precautions NTS Continue bronchodilators Continue antibiotics Follow up RLL BAL Gram stain, cultures and fungal cultures Updated Rusty torres. Labs and imaging reviewed. Rest of plan as noted below. Plan: Continue BiPAP Titrate to keep sats above 90% Continue bronchodilators NTS Head of bed elevation Aspiration precautions Continue antibiotics Follow up cultures DVT prophylaxis Prognosis: Poor given multiple comorbidities. Condition: Critical Rest of plan per hospitalist and other consultants. A total of 90 minutes of critical care time was spent reviewing the patient record, examining the patient, making a diagnostic and therapeutic plan, discussing this plan with the medical personnel, following up on diagnostic studies and following the patient for clinical stability excluding any and all procedures. At least 50% of this time was spent in direct, [id number] contact. Thank you Dr. Cuevas for allowing me to participate in this patient's care. Further recommendations will depend on patient's clinical course. Please do not hesitate to contact me if you have any questions or concerns. This medical document was created using an electronic medical record system with [employer] dictation system. Although this document has been carefully reviewed, there may still be some phonetic and typographical errors. These areas are purely typographical due to imperfections of the software programs, and do not reflect any compromise in the patient's medical care. Plan discussed with: Spouse, Other (ERASMO Huddleston/MAT REPAIRERERASMO Lees) Critical Care Time(min): 90 JAVIER NELSON MD Nov 02, 2024 23:29
[2024-11-03] VITALS (34 sets, daily range): BP systolic 94–135; BP diastolic 61–86; PULSE 74–116; RESP 8–87; TEMP 98.1–100.6; O2SAT 91–99
[2024-11-03] MEDS: ACETAMINOPHEN IV 1000 MG/100ML (10MG/ML) IV ONE (00:53)
[2024-11-03 04:07] LABS: Basophils # (auto) 0 10 ^3/uL (0-0.2); Basophils % (auto) 0.2 % (0.0-2.0); Eosinophils # (auto) 0 10 ^3/uL (0-0.8); Hematocrit 34.6 % (36.0-46.0); Hemoglobin 11.5 g/dL (12.2-16.2); Lymphocytes # (auto) 0.6 10 ^3/uL (0.4-5.4); Lymphocytes % (auto) 4.8 % (10.0-50.0); Mean Corpuscular Hemoglobin 28.7 pg (28.0-32.0); Mean Corpuscular Hgb Conc. 33.4 g/dL (32.0-36.0); Monocytes # (auto) 0.5 10 ^3/uL (0-1.3); Monocytes % (auto) 3.8 % (0.0-12.0); Neutrophils # (auto) 12.3 10 ^3/uL (1.6-8.6); Neutrophils % (auto) 91.2 % (37.0-80.0); Platelet Count (auto) 190 10^3/uL (140-450); Red Blood Cells 4.02 10^6/uL (4.0-5.20); Red Cell Distribution Width 17.9 % (11.8-14.3); White Blood Cell 13.5 10^3/uL (4.4-10.8)
[2024-11-03 04:17] LABS: Albumin 3.6 g/dL (3.2-4.8); Anion Gap 11 (5-15); Aspartate Aminotransferase 25 U/L (13-40); Calcium 9.1 mg/dL (8.7-10.4); Carbon Dioxide 24 mmol/L (20-31); Chloride 104 mmol/L (98-107); Potassium 3.6 mmol/L (3.5-5.1); Sodium 139 mmol/L (136-145)
[2024-11-03 04:20] LABS: Alanine Aminotransferase 42 U/L (7-40); Alkaline Phosphatase 120 U/L (46-116); BUN/Creatinine Ratio 20.8 (10.0-20.0); Bilirubin, Total 0.3 mg/dL (0.2-1.0); Blood Urea Nitrogen < 5 mg/dL (9-23); Glucose 113 mg/dL (74-106)
[2024-11-03] MEDS: MORPHINE SULFATE INJ 2 MG/ml SYRG IV ONE (04:30)
--- NOTE | 2024-11-03 09:58 | DVH ---
CHEST RADIOGRAPH Indication: f/u bronch Technique: Single frontal view of the chest was obtained COMPARISON: XY CHEST XRAY 1 VIEW on DOS: 11/02/24, XY CHEST PORTABLE on DOS: 11/02/24, XY CHEST PORTABL E on DOS: 11/02/24, XY CHEST XRAY 1 VIEW on DOS: 11/02/24, XY CHEST PORTABLE on DOS: 11/01/24 FINDINGS: Lines and Tubes: Enteric catheter in satisfactory position. Lungs: Multifocal airspace disease. Right lower lobe atelectasis. Pleura: No effusion. Possible small right apical pneumothorax. Cardiomediastinal contours: Unremarkable Bones: Unremarkable IMPRESSION: Examination is limited secondary to overlying artifact. Question of small right pneumothorax versus artifact. Clinical correlation advised. Repeat radiograph or CT could be obtained to further evaluate if clinically indicated.
[2024-11-03] MEDS: KETOROLAC TROMETH 30 MG/ML 1ML VIAL IV ONE (10:40)
--- NOTE | 2024-11-03 11:51 | DVHPNRES ---
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 Patient denies additional past medical history of relevance but states that her blood pressure runs in the lower side. The patient presented to the ED due to shortness of breath associated with sputum production without being able to expectorate due to her condition. The patient reported shortness of breath, phlegm associated with fever but no chills. The patient denied chest pain, abdominal pain, nausea, vomiting or any other symptoms. The patient also denied any sick contacts recently. Initial chest x- ray revealed significant consolidation in the right lung base and middle lobe with a opacities extending from the base to the upper lobe. A CT angio of the chest was performed showing no evidence of pulmonary embolism but with consolidation in the right middle and lower lobes. The patient was started on vancomycin, meropenem, azithromycin for sepsis due to right lung bacterial pneumonia. On 11/02/2024 the patient underwent bronchoscopy on right middle and lower lobe with significant mucus plugging especially in are one-L10. Bronchial alveolar lavage was sent for microbiology. Sputum culture is growing Pseudomonas which is resistant to meropenem, we stopped meropenem and azithromycin and we started ciprofloxacin IV and we will continue IV vancomycin. Patient seen and examined at bedside. The patient is currently alert and oriented in person, place and time. The patient was on BiPAP overnight with an IPAP of 14, EPAP 5, saturating 96% with an FiO2 of 35%. The patient is currently on 6 L of oxygen through nasal cannula saturating 95%. There are still coarse sounds on the right middle lung and absent on the right lung base. Today, chest x-ray is showing improvement of the middle lobe of the right lung but right lung base has complete opacities. We will continue on IV vancomycin, ciprofloxacin. We will order a new CT of the chest without contrast to evaluate the right lower lobe. We ordered a swallow evaluation to make sure patient is able to swallow thick liquids and evaluate aspiration probabilities. Meanwhile we will place a midline and start the patient on Clinimix IV. ROS Constitutional: Reports generalized weakness, fatigue and gen body aches. Denies weight loss, fever and chills. HEENT: Denies changes in vision and hearing. Respiratory: Reports mild shortness of breath. Denies cough Cardiovascular: Denies chest discomfort or palpitations GI: Denies abdominal pain, nausea, vomiting and diarrhea. : Denies dysuria and urinary frequency. Musculoskeletal: Denies myalgias and joint pain Skin: Denies rash and pruritus. Neurological: Denies dizziness, headache, vision or hearing problems Objective vital signs Vital Sign Date Time Temp Pulse Resp B/P (MAP) Pulse Ox O2 Delivery O2 Flow Rate FiO2 11/03/24 10:41 94 Nasal Cannula* 4 36 11/03/24 10:16 109 16 11/03/24 10:00 116/75 (89) 11/03/24 08:00 100.6 100.6 Total Intake and Output 11/02/24 11/02/24 11/03/24 15:00 23:00 07:00 Intake Total 300 ml 1000 ml Output Total 750 ml Balance 300 ml 250 ml medications Current Medications Medications Dose Ordered Sig/Carlos Route Start Time Stop Time Status Last Admin Dose Admin Azithromycin 250 ml @ 125 mls/hr DAILY@0500 IV 11/02/24 05:00 11/03/24 05:00 125 MLS/HR Ipratropium [place] 0.5 mg Q4HR NEB 11/01/24 06:00 11/03/24 10:10 0.5 MG Levalbuterol HCl 1.25 mg Q4HR NEB 11/01/24 06:00 11/03/24 10:10 1.25 MG Acetaminophen 650 mg Q6HP PRN PO 11/01/24 06:00 11/02/24 06:29 650 MG Vancomycin HCl 0 ml @ 0 mls/hr UD IV 11/01/24 07:15 Hydromorphone HCl 0.5 mg Q8HP PRN PO 11/01/24 08:45 11/02/24 08:52 0.5 MG Enoxaparin Sodium 40 mg DAILY SC 11/01/24 10:37 11/03/24 09:25 40 MG Baclofen 20 mg Q8HR PO 11/01/24 15:30 11/03/24 10:50 20 MG Meropenem 50 ml @ 17 mls/hr Q8H IV 11/02/24 08:00 11/03/24 09:25 17 MLS/HR Dexmedetomidine HCl 400 mcg/ Dextrose 100 ml @ 3 mls/hr Q24H IV 11/02/24 15:30 Vancomycin HCl 250 ml @ 250 mls/hr Q8H IV 11/02/24 17:00 11/03/24 09:25 250 MLS/HR Examination Physical Examination General: Patient alert and oriented in person, place and time. Patient is quadriplegic and unable to expectorate. Patient following commands. HEENT: Normocephalic, atraumatic, moist mucous membranes Respiratory/pulmonary: There are absent breath sounds on right lung base and coarse sounds on right middle lobe. Breath sounds on the Upper right lung is audible, grossly clear. left lung sounds grossly clear. no wheezes. Cardiovascular: Normal heart sounds S1 and S2 with no associated murmurs Abdomen: Abdomen nondistended, there is no pain to palpation in any of the abdominal quadrants, no palpable masses. Extremities: There is no peripheral edema present at the lower extremities. Patient unable to move upper or lower extremities due to her condition. Peripheral Pulses: 3+ Radial (R). 3+ Radial (L). 3+ Dorsalis pedis (R). 3+ Dorsalis pedis(L) Skin: No rashes or pruritus, there is no sacral edema present at this time. Neurological: Patient is quadriplegic, only able to move head and minimally shoulders. patient is alert and oriented x3. laboratory and microbiology Laboratory Tests 11/03/24 03:41 Test 11/03/24 03:41 Range/Units Serum Glucose 113 H 74-106 mg/dL Microbiology Date/Time Source Procedure Growth Status 11/01/24 21:58 Nose MRSA Screen - Final Complete 11/01/24 10:54 Sputum Gram Stain - Final Complete 11/01/24 10:54 Respiratory Culture - Final Pseudomonas aeruginosa Complete 11/01/24 08:00 Voided Urine Urine Culture - Final Complete 11/01/24 04:44 Blood Blood Culture - Preliminary NO GROWTH AFTER 48 HOURS OF INCUBATION. Resulted Problem List/Assessment/Plan Problem List/Assessment/Plan Assessment/Plan Acute hypoxic respiratory failure due to right lung bacterial gram+/- pneumonia Possible aspiration pneumonia Sepsis likely due to above Possible mucus plug on right lower lobe -initial chest x-ray showed complete opacities on right lung especially right lung base and mid lobe. -currently on 2 L of oxygen through nasal cannula -right lung beckett are diminished and absent at the base and middle lobe. -CT angio of the chest showed no pulmonary embolism but showed diffuse consolidations in the right middle and lower lobes. -Chest U/S showed no evidence of pleural effusion -continue IV vancomycin -start IV ciprofloxacin -stopped IV meropenem -stopped IV azithromycin -continue respiratory therapy with levalbuterol and ipratropium med nebs. -consulted pulmonology, which is on board -Bronchoscopy was performed on 11/02/24. -bronchioalveolar lavage is pending -On BiPAP overnight with an IPAP of 14, EPAP of 5, FiO2 35% -currently on 6 L of oxygen through nasal cannula sat 95%. -ordered CT scan of the chest without contrast to evaluate right lower lobe -ordered midline for IV Clinimix placement, while swallow evaluation is performed -Ordered swallow evaluation -blood culture came back negative but sputum culture is growing Pseudomonas which is resistant to meropenem. We stopped meropenem and azithromycin and started the patient on ciprofloxacin. Quadriplegia secondary to intracranial bleed in July of 2023 -patient was treated for stroke and received dose of alteplase which resulted in intracranial bleeding -patient unable to move upper or lower extremities. Only moves head and minimally bilateral shoulders. Patient is alert and oriented x3. Sinus tachycardia likely due to anxiety -patient had episode of sinus tachycardia in the 130s-140s that resolved after Ativan administration -continuous cardiac monitoring -EKG showed sinus tachycardia, no ST segment elevation or depression or any T- wave abnormalities. Patient denied chest pain. -patient received 500 cc bolus of normal saline Hx of low blood pressure -Monitor ACP, discussed with the patient and family at bedside. Goals of care discussed with the patient and family at bedside for >30min, FULL CODE Plan discussed with Dr. 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
--- NOTE | 2024-11-03 14:33 | MEDREC ---
[facility] ASP Intervention Section I FOR[facility] ASP Intervention: Deescalate AB based on CS (THE FINAL SPUTUM CULTURE SHOWED PSEUDOMONAS THAT IS RESISTANT TO ZOSYN, CARBAPENEMS, AND CEPHALOSPORINS. PLEASE SWITCHING MEROPENEM TO CIPROFLOXACIN BASED ON CULTURE RESULT (PHARMACY DOES NOT HAVE LEVOFLOXACIN IV IN STOCK)) NAZARIO DAVIS Nov 03, 2024 14:33
[2024-11-03] MEDS: VANCOMYCIN 1.25GM/250ML 250 ML IV SCH (18:00)
[2024-11-03] MEDS: KETOROLAC TROMETH 30 MG/ML 1ML VIAL IV PRN (19:52)
[2024-11-03] MEDS: POLYETHYLENE GLYCOL 17 GM PWDR PO SCH (22:01)
[2024-11-03] MEDS: DOCUSATE ORAL LIQUID 100 MG/10 ML UD GT SCH (22:02)
[2024-11-03] MEDS: CIPROFLOXACIN 400MG/200ML 200 ML IV SCH (22:03)
[2024-11-03] MEDS: ACETYLCYSTEINE 10 %(100MG/ML) SOL 4ML NEB SCH (22:39)
--- NOTE | 2024-11-03 23:26 | DVHPN2 ---
Progress Note - Dictate Date Seen: Nov 03, 2024 Has the PT tested + for MRSA If YES, has PT been informed?: No Medical Necessity Reason Pt with a Central, PICC or Fol: Yes The following are medically ne: Rhodes Catheter Reason for rhodes catheter: Strict I&O Subjective Patient seen and examined at bedside. On supplemental oxygen Overnight events reviewed. vital signs Vital Sign Date Time Temp Pulse Resp B/P (MAP) Pulse Ox O2 Delivery O2 Flow Rate FiO2 11/03/24 23:00 116 109/68 94 Facial BiPAP Mask 35 11/03/24 22:50 21 11/03/24 21:57 4 11/03/24 21:00 99.0 99.0 Total Intake and Output 11/02/24 11/02/24 11/03/24 15:00 23:00 07:00 Intake Total 300 ml 1000 ml Output Total 750 ml Balance 300 ml 250 ml medications Current Medications Medications Dose Ordered Sig/Carlos Route Start Time Stop Time Status Last Admin Dose Admin Ipratropium [place] 0.5 mg Q4HR NEB 11/01/24 06:00 11/03/24 22:39 0.5 MG Levalbuterol HCl 1.25 mg Q4HR NEB 11/01/24 06:00 11/03/24 22:39 1.25 MG Acetaminophen 650 mg Q6HP PRN PO 11/01/24 06:00 11/02/24 06:29 650 MG Vancomycin HCl 0 ml @ 0 mls/hr UD IV 11/01/24 07:15 Enoxaparin Sodium 40 mg DAILY SC 11/01/24 10:37 11/03/24 09:25 40 MG Baclofen 20 mg Q8HR PO 11/01/24 15:30 11/03/24 22:01 20 MG Dexmedetomidine HCl 400 mcg/ Dextrose 100 ml @ 3 mls/hr Q24H IV 11/02/24 15:30 Vancomycin HCl 250 ml @ 200 mls/hr Q8H IV 11/03/24 18:00 11/03/24 18:00 200 MLS/HR Ciprofloxacin 200 ml @ 200 mls/hr Q12HR IV 11/03/24 22:00 11/03/24 22:03 200 MLS/HR Docusate Sodium 100 mg BID GT 11/03/24 22:00 11/03/24 22:02 100 MG Polyethylene Glycol 17 gm DAILY PO 11/03/24 22:00 11/03/24 22:01 17 GM Hydromorphone HCl 0.25 mg Q4HPRN PRN IV 11/03/24 19:00 Acetylcysteine 100 mg Q4HR NEB 11/03/24 22:00 11/03/24 22:39 100 MG Ketorolac Tromethamine 15 mg Q6HPRN PRN IV 11/03/24 19:30 11/08/24 19:29 11/03/24 19:52 15 MG objective Gen.: Patient lying in bed in no apparent distress. On supplemental oxygen Head: Normocephalic, atraumatic Eyes: EOMI/PERRLA. Ears: Normal hearing. Normal anatomy. Neck/trachea: Trachea midline, supple. Tracheostomy scar. Nose: Normal external anatomy. Mouth: Moist mucous membranes. Chest: Decreased air entry bilaterally. No wheezing. Right lower lobe rhonchi. Dullness to percussion in right lower lung field. Cardio vascular: Positive S1, positive S2. Regular rate and rhythm. Abdomen: Positive bowel sounds in all 4 quadrants. Soft, non-tender, non- distended. : Deferred. Rectal: Deferred Skin: Warm, dry. Extremities: 2+ radial pulses bilaterally. No lower extremity edema. Neuro: Awake, alert, oriented x3. Quadriplegia laboratory and microbiology Laboratory Tests 11/03/24 03:41 Test 11/03/24 03:41 Range/Units Serum Glucose 113 H 74-106 mg/dL Assessment/Plan Impression: Acute hypoxic respiratory failure Pneumonia, aspiration versus community-acquired Sepsis due to pneumonia Pulmonary embolism ruled out Mucus plugging of right lower lobe Atelectasis Tracheostomy, history Events: 11/02/24 - S/p bronchoscopy with BAL on Thick viscous secretions unable to remove with endo/bronchoscope She was intubated and placed on mechanical ventilator Used disposable bronch to clear thick viscous secretions Post procedure CXR demonstrated re-expansion of RML/RLL. Pt was subsequently extubated to BiPAP Patient on BiPAP this AM - transitioned to low flow O2 On 4 LPM NC Taper O2 as tolerated Thickened liquids after swallow evaluation Head of bed elevation Aspiration precautions Chest x-ray reviewed, notable for RML/RLL collapse NTS Continue bronchodilators/Mucomyst Chest physiotherapy Continue antibiotics Follow up RLL BAL Gram stain, cultures and fungal cultures Labs and imaging reviewed. Rest of plan as noted below. Plan: Continue supplemental oxygen Titrate to keep sats above 90% Continue bronchodilators NTS Head of bed elevation Aspiration precautions Continue antibiotics Follow up cultures DVT prophylaxis Prognosis: Poor given multiple comorbidities. Condition: Critical Rest of plan per hospitalist and other consultants. A total of 35 minutes of critical care time was spent reviewing the patient record, examining the patient, making a diagnostic and therapeutic plan, discussing this plan with the medical personnel, following up on diagnostic studies and following the patient for clinical stability excluding any and all procedures. At least 50% of this time was spent in direct, [id number] contact. Thank you Dr. Cuevas for allowing me to participate in this patient's care. Further recommendations will depend on patient's clinical course. Please do not hesitate to contact me if you have any questions or concerns. This medical document was created using an electronic medical record system with [employer] dictation system. Although this document has been carefully reviewed, there may still be some phonetic and typographical errors. These areas are purely typographical due to imperfections of the software programs, and do not reflect any compromise in the patient's medical care. Plan discussed with: Other (ERASMO Nieves) Critical Care Time(min): 35 JAVIER NELSON MD Nov 03, 2024 23:26
[2024-11-04] VITALS (46 sets, daily range): BP systolic 89–136; BP diastolic 47–88; PULSE 59–111; RESP 13–26; TEMP 97.6–98.9; O2SAT 90–98
--- NOTE | 2024-11-04 05:19 | DVH ---
CHEST RADIOGRAPH Indication: pna Technique: Single frontal view of the chest was obtained Comparison: XY CHEST PORTABLE on DOS: 11/03/24 FINDINGS: Lines and Tubes: Enteric tube terminates in the stomach. Lungs: Right hemidiaphragm is elevated. Right basilar opacity. Pleura: No effusion. No pneumothorax. Cardiomediastinal contours: Unremarkable Bones: No acute osseous abnormality. IMPRESSION: 1. Elevated right hemidiaphragm. Right basilar opacity representing consolidation or atelectasis.
[2024-11-04 05:25] LABS: Basophils # (auto) 0 10 ^3/uL (0-0.2); Basophils % (auto) 0.4 % (0.0-2.0); Eosinophils # (auto) 0.1 10 ^3/uL (0-0.8); Eosinophils % (auto) 0.9 % (0.0-7.0); Hematocrit 35.2 % (36.0-46.0); Hemoglobin 11.6 g/dL (12.2-16.2); Lymphocytes # (auto) 1.5 10 ^3/uL (0.4-5.4); Lymphocytes % (auto) 17.6 % (10.0-50.0); Mean Corpuscular Hemoglobin 28.4 pg (28.0-32.0); Mean Corpuscular Hgb Conc. 32.9 g/dL (32.0-36.0); Mean Corpuscular Volume 86.2 fL (80.0-100.0); Monocytes # (auto) 0.6 10 ^3/uL (0-1.3); Monocytes % (auto) 6.6 % (0.0-12.0); Neutrophils # (auto) 6.2 10 ^3/uL (1.6-8.6); Neutrophils % (auto) 74.5 % (37.0-80.0); Platelet Count (auto) 202 10^3/uL (140-450); Red Blood Cells 4.09 10^6/uL (4.0-5.20); Red Cell Distribution Width 17.9 % (11.8-14.3); White Blood Cell 8.3 10^3/uL (4.4-10.8)
[2024-11-04 05:37] LABS: Alanine Aminotransferase 32 U/L (7-40); Albumin 3.7 g/dL (3.2-4.8); Alkaline Phosphatase 108 U/L (46-116); Anion Gap 12 (5-15); Aspartate Aminotransferase 16 U/L (13-40); Bilirubin, Total 0.3 mg/dL (0.2-1.0); Calcium 9.2 mg/dL (8.7-10.4); Carbon Dioxide 22 mmol/L (20-31); Chloride 106 mmol/L (98-107); Sodium 140 mmol/L (136-145); Total Protein 6.3 g/dL (5.7-8.2)
[2024-11-04 05:41] LABS: BUN/Creatinine Ratio 26.3 (10.0-20.0); Blood Urea Nitrogen < 5 mg/dL (9-23); Glucose 63 mg/dL (74-106); Magnesium 1.6 mg/dL (1.6-2.6); Potassium 3.2 mmol/L (3.5-5.1)
[2024-11-04] MEDS: POTASSIUM CHL 20MEQ/100ML 100 ML IV SCH (07:00)
[2024-11-04] MEDS ORDERED: CLINIMIX PER PHARMACY 0 ML IV SCH (07:00)
[2024-11-04] MEDS: MAGNESIUM SULFATE 1GM/100ML 100 ML IV SCH (10:26)
--- NOTE | 2024-11-04 15:25 | DVH ---
Procedure: CT CHEST WITHOUT CONTRAST Reason for study/Clinical History: Right lower lobe pneumonia. Comparison Study: 11/01/2024. Exam Date: 11/04/2024 03:00 PM TECHNIQUE: Multidetector CT of the chest was performed from the lung apices to the upper abdomen with out the use of intravenous contract. Axial, coronal and sagittal multiplanar reformats were performed . Radiation Dose Information: CT Dose: CTDI volume is 10 mGy. Dose-length product is 339 mGy*cm The dose indicators for CT are the volume Computed Tomography (CT) Dose Index (CTDIvol) and the Dose Length Product (DLP), and are measured in units of mGy and mGy-cm, respectively. These indicators are not patient dose, but values generated from the CT scanner acquisition factors. The report includes radiation exposure data for exposures received during this examination. Radiation optimization: All CT scans at this facility use at least one of these dose optimization chapo hniques: automated exposure control mA and/or kV adjustment per patient size (includes targeted exam s where dose is matched to clinical indication) or iterative reconstruction. FINDINGS Lungs/Pleura: There is volume loss in the right lung with elevated right hemidiaphragm. There is stab le appearing likely collapse of the right middle and right lower lobes. There is small right pleural effusion. There is no evidence of pneumothorax Heart/Vascular Structures: Normal heart size. No pericardial effusion. Lymph Nodes: No thoracic lymphadenopathy. Musculoskeletal: No acute osseous abnormality. Soft tissues: Unremarkable. Upper abdomen: A nasogastric tube terminates in the proximal stomach. Visualized intra-abdominal stru ctures appear within normal limits. IMPRESSION: 1. Stable appearing likely collapse of the right middle and lower lobes. There is right lung volume loss with elevated right hemidiaphragm. There is small right pleural effusion. HS:Y
[2024-11-04] MEDS: HYDROmorphone HCL 2 MG/ML VL/or syr IV PRN (16:55)
[2024-11-04] MEDS ORDERED: POLYETHYLENE GLYCOL 17 GM PWDR PO SCH (22:00)
--- NOTE | 2024-11-04 23:20 | DVHPN2 ---
Progress Note - Dictate Date Seen: Nov 04, 2024 Has the PT tested + for MRSA If YES, has PT been informed?: No Medical Necessity Reason Pt with a Central, PICC or Fol: Yes The following are medically ne: Rhodes Catheter Reason for rhodes catheter: Strict I&O Subjective Patient seen and examined at bedside. On supplemental oxygen Overnight events reviewed. vital signs Vital Sign Date Time Temp Pulse Resp B/P (MAP) Pulse Ox O2 Delivery O2 Flow Rate FiO2 11/04/24 22:45 90 Nasal Cannula 45.0 11/04/24 22:45 70 70 11/04/24 22:45 105 21 11/04/24 22:00 109/85 (93) 11/04/24 20:09 98.6 98.6 Total Intake and Output 11/03/24 11/03/24 11/04/24 15:00 23:00 07:00 Intake Total 284 ml 634 ml 400 ml Output Total 1700 ml 1400 ml Balance 284 ml -1066 ml -1000 ml medications Current Medications Medications Dose Ordered Sig/Carlos Route Start Time Stop Time Status Last Admin Dose Admin Ipratropium [place] 0.5 mg Q4HR NEB 11/01/24 06:00 11/04/24 23:11 0.5 MG Levalbuterol HCl 1.25 mg Q4HR NEB 11/01/24 06:00 11/04/24 23:11 1.25 MG Acetaminophen 650 mg Q6HP PRN PO 11/01/24 06:00 11/02/24 06:29 650 MG Vancomycin HCl 0 ml @ 0 mls/hr UD IV 11/01/24 07:15 Enoxaparin Sodium 40 mg DAILY SC 11/01/24 10:37 11/04/24 08:12 40 MG Baclofen 20 mg Q8HR PO 11/01/24 15:30 11/04/24 21:17 20 MG Dexmedetomidine HCl 400 mcg/ Dextrose 100 ml @ 3 mls/hr Q24H IV 11/02/24 15:30 Ciprofloxacin 200 ml @ 200 mls/hr Q12HR IV 11/03/24 22:00 11/04/24 21:18 200 MLS/HR Docusate Sodium 100 mg BID GT 11/03/24 22:00 11/04/24 21:17 100 MG Polyethylene Glycol 17 gm DAILY PO 11/03/24 22:00 11/04/24 08:11 17 GM Hydromorphone HCl 0.25 mg Q4HPRN PRN IV 11/03/24 19:00 11/04/24 16:55 0.25 MG Acetylcysteine 100 mg Q4HR NEB 11/03/24 22:00 11/04/24 23:12 100 MG Ketorolac Tromethamine 15 mg Q6HPRN PRN IV 11/03/24 19:30 11/08/24 19:29 11/04/24 11:43 15 MG Vancomycin HCl 100 ml @ 100 mls/hr Q6H IV 11/05/24 00:00 objective Gen.: Patient lying in bed in no apparent distress. On supplemental oxygen Head: Normocephalic, atraumatic Eyes: EOMI/PERRLA. Ears: Normal hearing. Normal anatomy. Neck/trachea: Trachea midline, supple. Tracheostomy scar. Nose: Normal external anatomy. Mouth: Moist mucous membranes. Chest: Decreased air entry bilaterally. No wheezing. Right lower lobe rhonchi. Dullness to percussion in right lower lung field. Cardio vascular: Positive S1, positive S2. Regular rate and rhythm. Abdomen: Positive bowel sounds in all 4 quadrants. Soft, non-tender, non- distended. : Deferred. Rectal: Deferred Skin: Warm, dry. Extremities: 2+ radial pulses bilaterally. No lower extremity edema. Neuro: Awake, alert, oriented x3. Quadriplegia laboratory and microbiology Laboratory Tests 11/04/24 04:50 Test 11/04/24 04:50 Range/Units Serum Glucose 63 L 74-106 mg/dL Assessment/Plan Impression: Acute hypoxic respiratory failure Pneumonia, aspiration versus community-acquired Sepsis due to pneumonia Pulmonary embolism ruled out Mucus plugging of right lower lobe Atelectasis Tracheostomy, history Events: Remains on supplemental oxygen On 4 LPM NC Taper O2 as tolerated Start high flow oxygen alternating with BiPAP Thickened liquids after swallow evaluation Head of bed elevation Aspiration precautions Chest CT reviewed, notable for stable appearing likely collapse of the right middle and lower lobes. Right lung volume loss with elevated right hemidiaphragm. Small right pleural effusion. NTS Continue bronchodilators/Mucomyst Chest physiotherapy Continue antibiotics Postural drainage Patient on regular diet. Labs and imaging reviewed. Rest of plan as noted below. Plan: Continue supplemental oxygen Start high flow oxygen alternating with BiPAP Titrate to keep sats above 90% Continue bronchodilators NTS Head of bed elevation Aspiration precautions Continue antibiotics Follow up cultures DVT prophylaxis Prognosis: Poor given multiple comorbidities. Condition: Critical Rest of plan per hospitalist and other consultants. A total of 35 minutes of critical care time was spent reviewing the patient record, examining the patient, making a diagnostic and therapeutic plan, discussing this plan with the medical personnel, following up on diagnostic studies and following the patient for clinical stability excluding any and all procedures. At least 50% of this time was spent in direct, [id number] contact. Thank you Dr. Cuevas for allowing me to participate in this patient's care. Further recommendations will depend on patient's clinical course. Please do not hesitate to contact me if you have any questions or concerns. This medical document was created using an electronic medical record system with [employer] system. Although this document has been carefully reviewed, there may still be some phonetic and typographical errors. These areas are purely typographical due to imperfections of the software programs, and do not reflect any compromise in the patient's medical care. Dietary Evaluation Review Comments: 1. Provide TPN per pharmacy, if NPO > 7 days 2. Provide TF Jevity 1.2 @40 ml/hr (53 gPro, 1152 kcal), if EN/GI accessible, and pt is extubated and PO feeding not medically feasible. Continue the same TF portocol with clinimix @41ml/hr if pt has to remain intubated. 3. Offer a Regular diet texture as tolerated if pt is off vent and passing a sppech eval. Expected Outcomes/Goals: Provide and Monitor nutrition support to meet 75% of her needs. Plan discussed with: Other (ERASMO Whitfield) Critical Care Time(min): 35 JAVIER NELSON MD Nov 04, 2024 23:20
[2024-11-05] VITALS (21 sets, daily range): BP systolic 89–115; BP diastolic 55–77; PULSE 67–113; RESP 18–31; TEMP 98.1–99; O2SAT 92–98
[2024-11-05] MEDS: VANCOMYCIN 750MG KIT 100 ML IV SCH (00:37)
--- NOTE | 2024-11-05 01:04 | DVH ---
EXAM: XY CHEST XRAY 1 VIEW CLINICAL HISTORY: INCREASED O2 DEMANDS TECHNIQUE: Single AP view of the chest WID: COMPARISON: XY CHEST PORTABLE on DOS: 11/04/24 FINDINGS: Lines and tubes: None Chest: The heart size and pulmonary vasculature is within normal limits. No pleural effusion, pneumothorax, or consolidation. Elevation of the right hemidiaphragm. The osseous structures are grossly intact. IMPRESSION: No acute cardiopulmonary abnormality. Elevation of the right hemidiaphragm redemonstrated
[2024-11-05 04:17] LABS: Basophils # (auto) 0 10 ^3/uL (0-0.2); Basophils % (auto) 0.5 % (0.0-2.0); Eosinophils # (auto) 0.1 10 ^3/uL (0-0.8); Eosinophils % (auto) 1.6 % (0.0-7.0); Hematocrit 34.6 % (36.0-46.0); Hemoglobin 11.7 g/dL (12.2-16.2); Lymphocytes # (auto) 1.4 10 ^3/uL (0.4-5.4); Mean Corpuscular Hemoglobin 29.2 pg (28.0-32.0); Mean Corpuscular Hgb Conc. 33.7 g/dL (32.0-36.0); Mean Corpuscular Volume 86.5 fL (80.0-100.0); Monocytes # (auto) 0.6 10 ^3/uL (0-1.3); Monocytes % (auto) 8.1 % (0.0-12.0); Neutrophils # (auto) 5.8 10 ^3/uL (1.6-8.6); Neutrophils % (auto) 71.8 % (37.0-80.0); Platelet Count (auto) 246 10^3/uL (140-450); Red Cell Distribution Width 17.2 % (11.8-14.3)
[2024-11-05 04:41] LABS: Alanine Aminotransferase 27 U/L (7-40); Albumin 3.8 g/dL (3.2-4.8); Alkaline Phosphatase 106 U/L (46-116); Anion Gap 8 (5-15); Aspartate Aminotransferase 13 U/L (13-40); Calcium 9.3 mg/dL (8.7-10.4); Carbon Dioxide 25 mmol/L (20-31); Glucose 88 mg/dL (74-106); Magnesium 1.8 mg/dL (1.6-2.6); Potassium 3.6 mmol/L (3.5-5.1); Sodium 140 mmol/L (136-145)
[2024-11-05 04:42] LABS: BUN/Creatinine Ratio 21.7 (10.0-20.0); Bilirubin, Total 0.3 mg/dL (0.2-1.0); Blood Urea Nitrogen < 5 mg/dL (9-23); Chloride 107 mmol/L (98-107); Total Protein 6.4 g/dL (5.7-8.2)
[2024-11-05] MEDS: metroNIDAZOLE 500MG/100ML 100 ML IV SCH (13:40)
[2024-11-05] MEDS: levoFLOXacin 750MG 150 ML IV SCH (14:24)
--- NOTE | 2024-11-05 15:09 | DVHPNRES ---
Progress Note Date Seen: Nov 04, 2024 Resident Creating Document: ISDRA WILSON RESIDENT Has the PT tested + for MRSA If YES, has PT been informed?: No Medical Necessity Reason Pt with a Central, PICC or Fol: Yes The following are medically ne: Rhodes Catheter Reason for rhodes catheter: Strict I&O Subjective Review of Systems This is a 24-year-old female with past medical history of quadriplegia secondary to intracranial hemorrhage due to alteplase administration in July of 2023 due to possible stroke. Patient denies additional past medical history of relevance but states that her blood pressure runs in the lower side. The patient presented to the ED due to shortness of breath associated with sputum production without being able to expectorate due to her condition. The patient reported shortness of breath, phlegm associated with fever but no chills. The patient denied chest pain, abdominal pain, nausea, vomiting or any other symptoms. The patient also denied any sick contacts recently. Initial chest x- ray revealed significant consolidation in the right lung base and middle lobe with a opacities extending from the base to the upper lobe. A CT angio of the chest was performed showing no evidence of pulmonary embolism but with consolidation in the right middle and lower lobes. The patient was started on vancomycin, meropenem, azithromycin for sepsis due to right lung bacterial pneumonia. On 11/02/2024 the patient underwent bronchoscopy on right middle and lower lobe with significant mucus plugging especially in are one-L10. Bronchial alveolar lavage was sent for microbiology. Sputum culture is growing Pseudomonas which is resistant to meropenem, we stopped meropenem and azithromycin and we started ciprofloxacin IV and we will continue IV vancomycin. Patient seen and examined at bedside. Patient alert and oriented in person, place and time. Patient was on high-flow nasal cannula at 40 L of oxygen with an FiO2 of 90%. On lung auscultation right lung base sounds are absent. We ordered swallow evaluation we will consider Clinimix if patient fails swallow eval. Patient is currently on vancomycin and ciprofloxacin. Pulmonology is on board. We ordered a CT scan of the chest which show lung volumes in the right lung. ROS Constitutional: Denies weight loss, fever and chills. HEENT: Denies changes in vision and hearing. Respiratory: Reports moderate shortness of breath with inability to cough. Cardiovascular: Denies chest discomfort or palpitations GI: Denies abdominal pain, nausea, vomiting and diarrhea. : Denies dysuria and urinary frequency. Musculoskeletal: Denies myalgias and joint pain Skin: Denies rash and pruritus. Neurological: Denies dizziness, headache, vision or hearing problems Objective vital signs Vital Sign Date Time Temp Pulse Resp B/P (MAP) Pulse Ox O2 Delivery O2 Flow Rate FiO2 11/05/24 12:00 70 11/05/24 12:00 21 97 Hi-Flow Heated NC+ 30 80 80 11/05/24 12:00 98.3 102/69 (80) 98.3 Total Intake and Output 11/04/24 11/04/24 11/05/24 15:00 23:00 07:00 Intake Total 1000 ml 200 ml 200 ml Output Total 2300 ml 1900 ml Balance 1000 ml -2100 ml -1700 ml medications Current Medications Medications Dose Ordered Sig/Carlos Route Start Time Stop Time Status Last Admin Dose Admin Ipratropium [place] 0.5 mg Q4HR NEB 11/01/24 06:00 11/05/24 11:18 0.5 MG Levalbuterol HCl 1.25 mg Q4HR NEB 11/01/24 06:00 11/05/24 11:18 1.25 MG Acetaminophen 650 mg Q6HP PRN PO 11/01/24 06:00 11/02/24 06:29 650 MG Vancomycin HCl 0 ml @ 0 mls/hr UD IV 11/01/24 07:15 Enoxaparin Sodium 40 mg DAILY SC 11/01/24 10:37 11/05/24 09:07 40 MG Baclofen 20 mg Q8HR PO 11/01/24 15:30 11/05/24 13:40 20 MG Dexmedetomidine HCl 400 mcg/ Dextrose 100 ml @ 3 mls/hr Q24H IV 11/02/24 15:30 Ciprofloxacin 200 ml @ 200 mls/hr Q12HR IV 11/03/24 22:00 Hold 11/05/24 09:07 200 MLS/HR Docusate Sodium 100 mg BID GT 11/03/24 22:00 11/05/24 09:13 100 MG Polyethylene Glycol 17 gm DAILY PO 11/03/24 22:00 11/05/24 09:07 17 GM Hydromorphone HCl 0.25 mg Q4HPRN PRN IV 11/03/24 19:00 11/04/24 16:55 0.25 MG Acetylcysteine 100 mg Q4HR NEB 11/03/24 22:00 11/05/24 11:19 100 MG Ketorolac Tromethamine 15 mg Q6HPRN PRN IV 11/03/24 19:30 11/08/24 19:29 11/05/24 14:25 15 MG Vancomycin HCl 100 ml @ 100 mls/hr Q6H IV 11/05/24 00:00 11/05/24 14:16 100 MLS/HR Metronidazole 100 ml @ 100 mls/hr Q8HR IV 11/05/24 14:00 11/05/24 13:40 100 MLS/HR Levofloxacin/ Dextrose 150 ml @ 100 mls/hr DAILY@1400 IV 11/05/24 14:00 11/09/24 13:59 11/05/24 14:24 100 MLS/HR Examination Physical Examination General: Patient alert and oriented in person, place and time. Patient is quadriplegic and unable to expectorate. Patient following commands. HEENT: Normocephalic, atraumatic, moist mucous membranes Respiratory/pulmonary: There are absent breath sounds on right lung base and coarse sounds on right middle lobe. Breath sounds on the Upper right lung is audible. left lung sounds grossly clear. no wheezes. Cardiovascular: Normal heart sounds S1 and S2 with no associated murmurs Abdomen: Abdomen nondistended, there is no pain to palpation in any of the abdominal quadrants, no palpable masses. Extremities: There is no peripheral edema present at the lower extremities. Patient unable to move upper or lower extremities due to her condition. Peripheral Pulses: 3+ Radial (R). 3+ Radial (L). 3+ Dorsalis pedis (R). 3+ Dorsalis pedis(L) Skin: No rashes or pruritus, there is no sacral edema present at this time. Neurological: Patient is quadriplegic, only able to move head and minimally shoulders. patient is alert and oriented x3. laboratory and microbiology Laboratory Tests 11/05/24 03:48 Test 11/05/24 03:48 Range/Units Serum Glucose 88 74-106 mg/dL Microbiology Date/Time Source Procedure Growth Status 11/02/24 12:15 Nose MRSA Screen - Final Complete 11/01/24 10:54 Sputum Gram Stain - Final Complete 11/01/24 10:54 Respiratory Culture - Final Pseudomonas aeruginosa Complete 11/01/24 08:00 Voided Urine Urine Culture - Final Complete 11/01/24 04:44 Blood Blood Culture - Preliminary NO GROWTH AFTER 72 HOURS OF INCUBATION. Resulted Problem List/Assessment/Plan Problem List/Assessment/Plan Assessment/Plan Acute hypoxic respiratory failure due to right lung bacterial gram+/- pneumonia Possible aspiration pneumonia Sepsis likely due to above Possible mucus plug on right lower lobe -initial chest x-ray showed complete opacities on right lung especially right lung base and mid lobe. -currently on 2 L of oxygen through nasal cannula -right lung beckett are diminished and absent at the base and middle lobe. -CT angio of the chest showed no pulmonary embolism but showed diffuse consolidations in the right middle and lower lobes. -Chest U/S showed no evidence of pleural effusion -continue IV vancomycin -Continue IV ciprofloxacin -continue respiratory therapy with levalbuterol and ipratropium med nebs. -consulted pulmonology, which is on board -Bronchoscopy was performed on 11/02/24. -bronchioalveolar lavage is pending -currently on high-flow nasal cannula with 40 L of oxygen with an FiO2 of 90%. -ordered CT scan of the chest without contrast to evaluate right lower lobe which showed low volumes on the right lung white opacities in the middle and lower lobes. -Ordered swallow evaluation -blood culture came back negative but sputum culture is growing Pseudomonas which is resistant to meropenem. We stopped meropenem and azithromycin and started the patient on ciprofloxacin. Quadriplegia secondary to intracranial bleed in July of 2023 -patient was treated for stroke and received dose of alteplase which resulted in intracranial bleeding -patient unable to move upper or lower extremities. Only moves head and minimally bilateral shoulders. Patient is alert and oriented x3. Sinus tachycardia likely due to anxiety -patient had episode of sinus tachycardia in the 130s-140s that resolved after Ativan administration -continuous cardiac monitoring -EKG showed sinus tachycardia, no ST segment elevation or depression or any T- wave abnormalities. Patient denied chest pain. -patient received 500 cc bolus of normal saline Hx of low blood pressure -Monitor ACP, discussed with the patient and family at bedside. Goals of care discussed with the patient and family at bedside for >30min, FULL CODE Plan discussed with Dr. Salinas Plan discussed with: Patient My Orders My Orders Orders - SIDRA WILSON Procedure Category Date Status Time Mechanical Soft Diet DIET 11/04/24 Transmitted Dinner Metronidazole PHA 11/05/24 In Process 500mg/100ml (Flagyl 14:00 Levofloxacin 750mg PHA 11/05/24 In Process (Levaquin) 14:00 Dietary Evaluation Review Comments: 1. Provide TPN per pharmacy, if NPO > 7 days 2. Provide TF Jevity 1.2 @40 ml/hr (53 gPro, 1152 kcal), if EN/GI accessible, and pt is extubated and PO feeding not medically feasible. Continue the same TF portocol with clinimix @41ml/hr if pt has to remain intubated. 3. Offer a Regular diet texture as tolerated if pt is off vent and passing a sppech eval. Expected Outcomes/Goals: Provide and Monitor nutrition support to meet 75% of her needs. Date of Service: Nov 04, 2024 Billing Provider: JENNIFER VÁZQUEZ MD Common Visit Codes: [id number] INP/OBS CARE(HIGH) SIDRA WILSON RESIDENT Nov 05, 2024 15:09 JENNIFER VÁZQUEZ MD Nov 09, 2024 00:12
--- NOTE | 2024-11-05 15:16 | DVHPNRES ---
Progress Note Date Seen: Nov 05, 2024 Resident Creating Document: SIDRA WILSON RESIDENT Has the PT tested + for MRSA If YES, has PT been informed?: No Medical Necessity Reason Pt with a Central, PICC or Fol: Yes The following are medically ne: Rhodes Catheter Reason for rhodes catheter: Strict I&O Subjective Review of Systems This is a 24-year-old female with past medical history of quadriplegia secondary to intracranial hemorrhage due to alteplase administration in July of 2023 due to possible stroke. Patient denies additional past medical history of relevance but states that her blood pressure runs in the lower side. The patient presented to the ED due to shortness of breath associated with sputum production without being able to expectorate due to her condition. The patient reported shortness of breath, phlegm associated with fever but no chills. The patient denied chest pain, abdominal pain, nausea, vomiting or any other symptoms. The patient also denied any sick contacts recently. Initial chest x- ray revealed significant consolidation in the right lung base and middle lobe with a opacities extending from the base to the upper lobe. A CT angio of the chest was performed showing no evidence of pulmonary embolism but with consolidation in the right middle and lower lobes. The patient was started on vancomycin, meropenem, azithromycin for sepsis due to right lung bacterial pneumonia. On 11/02/2024 the patient underwent bronchoscopy on right middle and lower lobe with significant mucus plugging especially in are one-L10. Bronchial alveolar lavage was sent for microbiology. Sputum culture is growing Pseudomonas which is resistant to meropenem, we stopped meropenem and azithromycin and we started ciprofloxacin IV and we will continue IV vancomycin. Patient seen and examined at bedside. Patient is on currently high-flow nasal cannula at 10 L of oxygen and FiO2 of 80%. We spoke with pharmacy regarding the possibility of starting levofloxacin. Pharmacy got IV levofloxacin for five days. So we discontinue the ciprofloxacin started the patient on IV levofloxacin. Based on sputum cultures are growing Pseudomonas which are resistant to meropenem, Zosyn and other antibiotics, we will discontinue IV vancomycin at this time. We we will continue IV antibiotics IV levofloxacin and IV metronidazole. CT scan of the chest showed low right lung volumes. Discussed with pulmonology the possibility of another bronchoscopy which might be necessary taking into consideration the results of the CT scan of the chest which could be due to a mucus plug once again. ROS Constitutional: Denies weight loss, fever and chills. HEENT: Denies changes in vision and hearing. Respiratory: Reports moderate to severe shortness of breath with inability of coughing in a lot of sputum and secretions. Cardiovascular: Denies chest discomfort or palpitations GI: Denies abdominal pain, nausea, vomiting and diarrhea. : Denies dysuria and urinary frequency. Musculoskeletal: Denies myalgias and joint pain Skin: Denies rash and pruritus. Neurological: Denies dizziness, headache, vision or hearing problems Objective vital signs Vital Sign Date Time Temp Pulse Resp B/P (MAP) Pulse Ox O2 Delivery O2 Flow Rate FiO2 11/05/24 12:00 70 11/05/24 12:00 21 97 Hi-Flow Heated NC+ 30 80 80 11/05/24 12:00 98.3 102/69 (80) 98.3 Total Intake and Output 11/04/24 11/04/24 11/05/24 15:00 23:00 07:00 Intake Total 1000 ml 200 ml 200 ml Output Total 2300 ml 1900 ml Balance 1000 ml -2100 ml -1700 ml medications Current Medications Medications Dose Ordered Sig/Carlos Route Start Time Stop Time Status Last Admin Dose Admin Ipratropium [place] 0.5 mg Q4HR NEB 11/01/24 06:00 11/05/24 11:18 0.5 MG Levalbuterol HCl 1.25 mg Q4HR NEB 11/01/24 06:00 11/05/24 11:18 1.25 MG Acetaminophen 650 mg Q6HP PRN PO 11/01/24 06:00 11/02/24 06:29 650 MG Vancomycin HCl 0 ml @ 0 mls/hr UD IV 11/01/24 07:15 Enoxaparin Sodium 40 mg DAILY SC 11/01/24 10:37 11/05/24 09:07 40 MG Baclofen 20 mg Q8HR PO 11/01/24 15:30 11/05/24 13:40 20 MG Dexmedetomidine HCl 400 mcg/ Dextrose 100 ml @ 3 mls/hr Q24H IV 11/02/24 15:30 Ciprofloxacin 200 ml @ 200 mls/hr Q12HR IV 11/03/24 22:00 Hold 11/05/24 09:07 200 MLS/HR Docusate Sodium 100 mg BID GT 11/03/24 22:00 11/05/24 09:13 100 MG Polyethylene Glycol 17 gm DAILY PO 11/03/24 22:00 11/05/24 09:07 17 GM Hydromorphone HCl 0.25 mg Q4HPRN PRN IV 11/03/24 19:00 11/04/24 16:55 0.25 MG Acetylcysteine 100 mg Q4HR NEB 11/03/24 22:00 11/05/24 11:19 100 MG Ketorolac Tromethamine 15 mg Q6HPRN PRN IV 11/03/24 19:30 11/08/24 19:29 11/05/24 14:25 15 MG Metronidazole 100 ml @ 100 mls/hr Q8HR IV 11/05/24 14:00 11/05/24 13:40 100 MLS/HR Levofloxacin/ Dextrose 150 ml @ 100 mls/hr DAILY@1400 IV 11/05/24 14:00 11/09/24 13:59 11/05/24 14:24 100 MLS/HR Examination Physical Examination General: Patient alert and oriented in person, place and time. Patient is quadriplegic and unable to expectorate. Patient following commands. HEENT: Normocephalic, atraumatic, moist mucous membranes Respiratory/pulmonary: There are absent breath sounds on right lung base and middle dose. There are coarse sounds in the apical right lung as well. There are mild coarse sounds in the left lung as well. No wheezes at this time. Cardiovascular: Normal heart sounds S1 and S2 with no associated murmurs Abdomen: Abdomen nondistended, there is no pain to palpation in any of the abdominal quadrants, no palpable masses. Extremities: There is no peripheral edema present at the lower extremities. Patient unable to move upper or lower extremities due to her condition. Peripheral Pulses: 3+ Radial (R). 3+ Radial (L). 3+ Dorsalis pedis (R). 3+ Dorsalis pedis(L) Skin: No rashes or pruritus, there is no sacral edema present at this time. Neurological: Patient is quadriplegic, only able to move head and minimally shoulders. patient is alert and oriented x3. laboratory and microbiology Laboratory Tests 11/05/24 03:48 Test 11/05/24 03:48 Range/Units Serum Glucose 88 74-106 mg/dL Microbiology Date/Time Source Procedure Growth Status 11/02/24 12:15 Nose MRSA Screen - Final Complete 11/01/24 10:54 Sputum Gram Stain - Final Complete 11/01/24 10:54 Respiratory Culture - Final Pseudomonas aeruginosa Complete 11/01/24 08:00 Voided Urine Urine Culture - Final Complete 11/01/24 04:44 Blood Blood Culture - Preliminary NO GROWTH AFTER 72 HOURS OF INCUBATION. Resulted Problem List/Assessment/Plan Problem List/Assessment/Plan Assessment/Plan Acute hypoxic respiratory failure due to right lung bacterial gram+/- pneumonia Possible aspiration pneumonia Sepsis likely due to above Possible mucus plug on right lower lobe -initial chest x-ray showed complete opacities on right lung especially right lung base and mid lobe. -right lung beckett are diminished and absent at the base and middle lobe. -CT angio of the chest showed no pulmonary embolism but showed diffuse consolidations in the right middle and lower lobes. -currently on high-flow nasal cannula with 30 L of oxygen with an FiO2 of 80% -Chest U/S showed no evidence of pleural effusion -stopped IV vancomycin -stopped IV ciprofloxacin -start IV levofloxacin -start IV metronidazole -continue respiratory therapy with levalbuterol and ipratropium med nebs. -consulted pulmonology, which is on board -Bronchoscopy was performed on 11/02/24. -bronchioalveolar lavage is pending -ordered CT scan of the chest without contrast to evaluate right lower lobe which showed low volumes on the right lung white opacities in the middle and lower lobes. -Ordered swallow evaluation, which the patient passed and is currently on soft mechanical diet -blood culture came back negative but sputum culture is growing Pseudomonas which is resistant to meropenem. We will start IV levofloxacin and IV metronidazole. Quadriplegia secondary to intracranial bleed in July of 2023 -patient was treated for stroke and received dose of alteplase which resulted in intracranial bleeding -patient unable to move upper or lower extremities. Only moves head and minimally bilateral shoulders. Patient is alert and oriented x3. Sinus tachycardia likely due to anxiety -patient had episode of sinus tachycardia in the 130s-140s that resolved after Ativan administration -continuous cardiac monitoring -EKG showed sinus tachycardia, no ST segment elevation or depression or any T- wave abnormalities. Patient denied chest pain. -patient received 500 cc bolus of normal saline Hx of low blood pressure -Monitor Goals of care discussed with the patient and family at bedside for >30min, FULL CODE Plan discussed with Dr. Galvez Plan discussed with: Patient My Orders My Orders Orders - SIDRA WILSON Procedure Category Date Status Time Mechanical Soft Diet DIET 11/04/24 Transmitted Dinner Metronidazole PHA 11/05/24 In Process 500mg/100ml (Flagyl 14:00 Levofloxacin 750mg PHA 11/05/24 In Process (Levaquin) 14:00 Dietary Evaluation Review Comments: 1. Provide TPN per pharmacy, if NPO > 7 days 2. Provide TF Jevity 1.2 @40 ml/hr (53 gPro, 1152 kcal), if EN/GI accessible, and pt is extubated and PO feeding not medically feasible. Continue the same TF portocol with clinimix @41ml/hr if pt has to remain intubated. 3. Offer a Regular diet texture as tolerated if pt is off vent and passing a sppech eval. Expected Outcomes/Goals: Provide and Monitor nutrition support to meet 75% of her needs. SIDRA WILSON RESIDENT Nov 05, 2024 15:16
--- NOTE | 2024-11-05 21:37 | DVHPN2 ---
Progress Note - Dictate Date Seen: Nov 05, 2024 Has the PT tested + for MRSA If YES, has PT been informed?: No Medical Necessity Reason Pt with a Central, PICC or Fol: Yes The following are medically ne: Rhodes Catheter Reason for rhodes catheter: Strict I&O Subjective Patient seen and examined at bedside. On supplemental oxygen Overnight events reviewed. vital signs Vital Sign Date Time Temp Pulse Resp B/P (MAP) Pulse Ox O2 Delivery O2 Flow Rate FiO2 11/05/24 16:00 98.6 102 19 105/73 (84) 96 98.6 11/05/24 15:43 Hi-Flow Heated NC+ 30 80 80 Total Intake and Output 11/04/24 11/04/24 11/05/24 15:00 23:00 07:00 Intake Total 1000 ml 200 ml 200 ml Output Total 2300 ml 1900 ml Balance 1000 ml -2100 ml -1700 ml medications Current Medications Medications Dose Ordered Sig/Carlos Route Start Time Stop Time Status Last Admin Dose Admin Ipratropium [place] 0.5 mg Q4HR NEB 11/01/24 06:00 11/05/24 18:24 0.5 MG Levalbuterol HCl 1.25 mg Q4HR NEB 11/01/24 06:00 11/05/24 18:24 1.25 MG Acetaminophen 650 mg Q6HP PRN PO 11/01/24 06:00 11/02/24 06:29 650 MG Enoxaparin Sodium 40 mg DAILY SC 11/01/24 10:37 11/05/24 09:07 40 MG Baclofen 20 mg Q8HR PO 11/01/24 15:30 11/05/24 13:40 20 MG Dexmedetomidine HCl 400 mcg/ Dextrose 100 ml @ 3 mls/hr Q24H IV 11/02/24 15:30 Ciprofloxacin 200 ml @ 200 mls/hr Q12HR IV 11/03/24 22:00 Hold 11/05/24 09:07 200 MLS/HR Docusate Sodium 100 mg BID GT 11/03/24 22:00 11/05/24 09:13 100 MG Polyethylene Glycol 17 gm DAILY PO 11/03/24 22:00 11/05/24 09:07 17 GM Hydromorphone HCl 0.25 mg Q4HPRN PRN IV 11/03/24 19:00 11/04/24 16:55 0.25 MG Acetylcysteine 100 mg Q4HR NEB 11/03/24 22:00 11/05/24 18:24 100 MG Ketorolac Tromethamine 15 mg Q6HPRN PRN IV 11/03/24 19:30 11/08/24 19:29 11/05/24 14:25 15 MG Metronidazole 100 ml @ 100 mls/hr Q8HR IV 11/05/24 14:00 11/05/24 13:40 100 MLS/HR Levofloxacin/ Dextrose 150 ml @ 100 mls/hr DAILY@1400 IV 11/05/24 14:00 11/09/24 13:59 11/05/24 14:24 100 MLS/HR objective Gen.: Patient lying in bed in no apparent distress. On supplemental oxygen Head: Normocephalic, atraumatic Eyes: EOMI/PERRLA. Ears: Normal hearing. Normal anatomy. Neck/trachea: Trachea midline, supple. Tracheostomy scar. Nose: Normal external anatomy. Mouth: Moist mucous membranes. Chest: Decreased air entry bilaterally. No wheezing. Right lower lobe rhonchi. Dullness to percussion in right lower lung field. Cardio vascular: Positive S1, positive S2. Regular rate and rhythm. Abdomen: Positive bowel sounds in all 4 quadrants. Soft, non-tender, non- distended. : Deferred. Rectal: Deferred Skin: Warm, dry. Extremities: 2+ radial pulses bilaterally. No lower extremity edema. Neuro: Awake, alert, oriented x3. Quadriplegia laboratory and microbiology Laboratory Tests 11/05/24 03:48 Test 11/05/24 03:48 Range/Units Serum Glucose 88 74-106 mg/dL Assessment/Plan Impression: Acute hypoxic respiratory failure Pneumonia, aspiration versus community-acquired Sepsis due to pneumonia Pulmonary embolism ruled out Mucus plugging of right lower lobe Atelectasis Tracheostomy, history Events: Remains on supplemental oxygen On high flow O2 with FR 20 LPM, FiO2 80% Alternate with BiPAP Taper O2 as tolerated Head of bed elevation Aspiration precautions Pulmonary toileting NTS Continue bronchodilators/Mucomyst Chest physiotherapy Continue antibiotics Postural drainage Start Levophed if necessary to keep SBP >90 mmHg Patient on regular diet. Had an extensive discussion with patients family and patient in regards to management plan. I presented the option of emergent intubation and bronchoscopy as patient states that she feels like shes drowning at times and she is asphyxiating. I also presented the option of continuing the current medical management with bronchodilators, chest physiotherapy , postural drainage, and mucolytics in addition to abx. There is the risk of ventilator dependence given patient quadriplegia and diaphragmatic weakening. She continues to accumulate secretions that are very thick and difficult for her to expectorate. For now, patient and family have decided to continue with current medical management and deferred bronchoscopy. I have noticed she is also at risk for mechanical vent dependence, including requiring tracheostomy. Labs and imaging reviewed. Rest of plan as noted below. Discussed with Dr. Cuevas Plan: Continue supplemental oxygen High flow oxygen alternating with BiPAP Titrate to keep sats above 90% Continue bronchodilators NTS Head of bed elevation Aspiration precautions Continue antibiotics Follow up cultures DVT prophylaxis Prognosis: Poor given multiple comorbidities. Condition: Critical Rest of plan per hospitalist and other consultants. A total of 35 minutes of critical care time was spent reviewing the patient record, examining the patient, making a diagnostic and therapeutic plan, discussing this plan with the medical personnel, following up on diagnostic studies and following the patient for clinical stability excluding any and all procedures. At least 50% of this time was spent in direct, [id number] contact. Thank you Dr. Cuevas for allowing me to participate in this patient's care. Further recommendations will depend on patient's clinical course. Please do not hesitate to contact me if you have any questions or concerns. This medical document was created using an electronic medical record system with [employer] dictation system. Although this document has been carefully reviewed, there may still be some phonetic and typographical errors. These areas are purely typographical due to imperfections of the software programs, and do not reflect any compromise in the patient's medical care. Dietary Evaluation Review Comments: 1. Provide TPN per pharmacy, if NPO > 7 days 2. Provide TF Jevity 1.2 @40 ml/hr (53 gPro, 1152 kcal), if EN/GI accessible, and pt is extubated and PO feeding not medically feasible. Continue the same TF portocol with clinimix @41ml/hr if pt has to remain intubated. 3. Offer a Regular diet texture as tolerated if pt is off vent and passing a sppech eval. Expected Outcomes/Goals: Provide and Monitor nutrition support to meet 75% of her needs. Plan discussed with: Other (ERASMO Barakat) Critical Care Time(min): 35 JAVIER NELSON MD Nov 05, 2024 21:37
[2024-11-06] VITALS (18 sets, daily range): BP systolic 91–114; BP diastolic 56–117; PULSE 60–119; RESP 15–21; TEMP 96.6–98.9; O2SAT 91–99
[2024-11-06] MEDS: ZOLPIDEM TARTRATE 5 MG TAB PO ONE (01:29)
[2024-11-06 04:19] LABS: Basophils # (auto) 0 10 ^3/uL (0-0.2); Basophils % (auto) 0.4 % (0.0-2.0); Eosinophils # (auto) 0.1 10 ^3/uL (0-0.8); Eosinophils % (auto) 1.7 % (0.0-7.0); Hematocrit 34.5 % (36.0-46.0); Hemoglobin 11.6 g/dL (12.2-16.2); Lymphocytes # (auto) 1.8 10 ^3/uL (0.4-5.4); Lymphocytes % (auto) 27.3 % (10.0-50.0); Mean Corpuscular Hemoglobin 29.2 pg (28.0-32.0); Mean Corpuscular Hgb Conc. 33.5 g/dL (32.0-36.0); Mean Corpuscular Volume 87.2 fL (80.0-100.0); Monocytes # (auto) 0.6 10 ^3/uL (0-1.3); Monocytes % (auto) 8.9 % (0.0-12.0); Neutrophils % (auto) 61.7 % (37.0-80.0); Nucleated Red Blood Cells % 0.2 %; Platelet Count (auto) 272 10^3/uL (140-450); Red Blood Cells 3.95 10^6/uL (4.0-5.20); White Blood Cell 6.4 10^3/uL (4.4-10.8)
[2024-11-06 04:34] LABS: Alanine Aminotransferase 21 U/L (7-40); Albumin 3.9 g/dL (3.2-4.8); Alkaline Phosphatase 101 U/L (46-116); Anion Gap 8 (5-15); Aspartate Aminotransferase 15 U/L (13-40); Calcium 9.2 mg/dL (8.7-10.4); Carbon Dioxide 29 mmol/L (20-31); Chloride 105 mmol/L (98-107); Glucose 99 mg/dL (74-106); Magnesium 1.9 mg/dL (1.6-2.6); Potassium 3.8 mmol/L (3.5-5.1); Sodium 142 mmol/L (136-145); Total Protein 6.4 g/dL (5.7-8.2)
[2024-11-06 04:52] LABS: BUN/Creatinine Ratio 16.1 (10.0-20.0); Bilirubin, Total 0.2 mg/dL (0.2-1.0); Blood Urea Nitrogen < 5 mg/dL (9-23)
--- NOTE | 2024-11-06 05:40 | DVH ---
EXAM: XY CHEST PORTABLE HISTORY: pna COMPARISON: XY CHEST XRAY 1 VIEW on DOS: 11/04/24, XY CHEST PORTABLE on DOS: 11/04/24, XY CHEST PORTABL E on DOS: 11/03/24, XY CHEST XRAY 1 VIEW on DOS: 11/02/24, XY CHEST PORTABLE on DOS: 11/02/24, chest CT dated 11/04/2024. TECHNIQUE: Portable AP view of the chest was performed. FINDINGS: There is stable complete atelectasis of the right lower lobe. There is associated right hemidiaphragm elevation. No pneumothorax. Probable small right pleural effusion. The heart is not enlarged. IMPRESSION: Stable complete atelectasis of the right lower lobe, likely due to mucous plugging, better characteri zed on prior CT scan.
--- NOTE | 2024-11-06 14:05 | DVHPNRES ---
Progress Note Date Seen: Nov 06, 2024 Resident Creating Document: BRINDA HELM RESIDENT Has the PT tested + for MRSA If YES, has PT been informed?: No Medical Necessity Reason Pt with a Central, PICC or Fol: Yes The following are medically ne: Rhodes Catheter Reason for rhodes catheter: Strict I&O Subjective Review of Systems This is a 24-year-old female with past medical history of quadriplegia secondary to intracranial hemorrhage due to alteplase administration in July of 2023 due to possible stroke. Patient denies additional past medical history of relevance but states that her blood pressure runs in the lower side. The patient presented to the ED due to shortness of breath associated with sputum production without being able to expectorate due to her condition. The patient reported shortness of breath, phlegm associated with fever but no chills. The patient denied chest pain, abdominal pain, nausea, vomiting or any other symptoms. The patient also denied any sick contacts recently. Initial chest x- ray revealed significant consolidation in the right lung base and middle lobe with a opacities extending from the base to the upper lobe. A CT angio of the chest was performed showing no evidence of pulmonary embolism but with consolidation in the right middle and lower lobes. The patient was started on vancomycin, meropenem, azithromycin for sepsis due to right lung bacterial pneumonia. On 11/02/2024 the patient underwent bronchoscopy on right middle and lower lobe with significant mucus plugging especially in are one-L10. Bronchial alveolar lavage was sent for microbiology. Sputum culture is growing Pseudomonas which is resistant to meropenem, zosyn and patient is on IV Levofloxacin and IV metronidazole. Patient seen and examined at bedside. Patient is on currently high-flow nasal cannula at 25 L of oxygen and FiO2 of 90%. CT scan of the chest showed low right lung volumes. Discussed with pulmonology the possibility of another bronchoscopy which might be necessary taking into consideration the results of the CT scan of the chest which could be due to a mucus plug once again. ROS Constitutional: Denies weight loss, fever and chills. HEENT: Denies changes in vision and hearing. Respiratory: Reports moderate to severe shortness of breath with inability of coughing in a lot of sputum and secretions. Cardiovascular: Denies chest discomfort or palpitations GI: Denies abdominal pain, nausea, vomiting and diarrhea. : Denies dysuria and urinary frequency. Musculoskeletal: Denies myalgias and joint pain Skin: Denies rash and pruritus. Neurological: Denies dizziness, headache, vision or hearing problems Objective vital signs Vital Sign Date Time Temp Pulse Resp B/P (MAP) Pulse Ox O2 Delivery O2 Flow Rate FiO2 11/06/24 13:46 91 18 91 25.0 91 11/06/24 12:00 98.1 97/70 (79) 98.1 11/06/24 11:53 Hi-Flow Heated NC+ Total Intake and Output 11/05/24 11/05/24 11/06/24 15:00 23:00 07:00 Intake Total 250 ml Output Total 1701 ml 800 ml Balance -1701 ml -550 ml medications Current Medications Medications Dose Ordered Sig/Carlos Route Start Time Stop Time Status Last Admin Dose Admin Ipratropium [place] 0.5 mg Q4HR NEB 11/01/24 06:00 11/06/24 13:46 0.5 MG Levalbuterol HCl 1.25 mg Q4HR NEB 11/01/24 06:00 11/06/24 13:46 1.25 MG Acetaminophen 650 mg Q6HP PRN PO 11/01/24 06:00 11/02/24 06:29 650 MG Enoxaparin Sodium 40 mg DAILY SC 11/01/24 10:37 11/06/24 09:43 40 MG Baclofen 20 mg Q8HR PO 11/01/24 15:30 11/06/24 06:00 20 MG Dexmedetomidine HCl 400 mcg/ Dextrose 100 ml @ 3 mls/hr Q24H IV 11/02/24 15:30 Ciprofloxacin 200 ml @ 200 mls/hr Q12HR IV 11/03/24 22:00 Hold 11/05/24 09:07 200 MLS/HR Docusate Sodium 100 mg BID GT 11/03/24 22:00 11/06/24 09:43 100 MG Polyethylene Glycol 17 gm DAILY PO 11/03/24 22:00 11/06/24 09:44 17 GM Hydromorphone HCl 0.25 mg Q4HPRN PRN IV 11/03/24 19:00 11/04/24 16:55 0.25 MG Acetylcysteine 100 mg Q4HR NEB 11/03/24 22:00 11/06/24 13:46 100 MG Ketorolac Tromethamine 15 mg Q6HPRN PRN IV 11/03/24 19:30 11/08/24 19:29 11/06/24 13:07 15 MG Metronidazole 100 ml @ 100 mls/hr Q8HR IV 11/05/24 14:00 11/06/24 13:07 100 MLS/HR Levofloxacin/ Dextrose 150 ml @ 100 mls/hr DAILY@1400 IV 11/05/24 14:00 11/09/24 13:59 11/06/24 13:58 100 MLS/HR Examination Physical examination: General Appearance: Alert, Oriented X3, Cooperative, Patient is quadriplegic and unable to expectorate. Patient following commands. HEENT: Atraumatic, PERRLA, EOMI, Mucous membrane moist/pink Respiratory: There are absent breath sounds on right lung base and middle dose. There are coarse sounds in the apical right lung as well. There are mild coarse sounds in the left lung as well. No wheezes at this time. Cardiovascular: Regular rate, Normal S1, Normal S2, No murmurs, no chest wall tenderness Abdominal: Normal bowel sounds, Soft, No tenderness, No hepatospenomegaly, No masses Extremities: No clubbing, No cyanosis, No edema, Normal pulses, No tenderness/swelling Skin: No rashes, No breakdown, No significant lesion Neuro: Patient is quadriplegic, only able to move head and minimally shoulders. patient is alert and oriented x3 Psych/Mental Status: Mental status NL, Mood NL laboratory and microbiology Laboratory Tests 11/06/24 03:41 Test 11/06/24 03:41 Range/Units Serum Glucose 99 74-106 mg/dL Microbiology Date/Time Source Procedure Growth Status 11/02/24 12:15 Nose MRSA Screen - Final Complete 11/01/24 10:54 Sputum Gram Stain - Final Complete 11/01/24 10:54 Respiratory Culture - Final Pseudomonas aeruginosa Complete 11/01/24 08:00 Voided Urine Urine Culture - Final Complete 11/01/24 04:44 Blood Blood Culture - Final NO GROWTH AFTER 5 DAYS OF INCUBATION. Complete Labs and/or images reviewed: Labs reviewed by me, Image(s) reviewed by me Problem List/Assessment/Plan Problem List/Assessment/Plan Assessment/Plan Acute hypoxic respiratory failure due to right lung bacterial gram+/- pneumonia Possible aspiration pneumonia Sepsis likely due to above Possible mucus plug on right lower lobe -initial chest x-ray showed complete opacities on right lung especially right lung base and mid lobe. -right lung beckett are diminished and absent at the base and middle lobe. -CT angio of the chest showed no pulmonary embolism but showed diffuse consolidations in the right middle and lower lobes. -currently on high-flow nasal cannula with 25 L of oxygen with an FiO2 of 90% -Chest U/S showed no evidence of pleural effusion blood culture came back negative but sputum culture is growing Pseudomonas which is resistant to meropenem and Zosyn - Continue IV levofloxacin - Continue IV metronidazole -continue respiratory therapy with levalbuterol and ipratropium med nebs. - Pulmonology is in board -Bronchoscopy was performed on 11/02/24. -bronchioalveolar lavage is pending -ordered CT scan of the chest without contrast revealed low volumes on the right lung white opacities in the middle and lower lobes. -Ordered swallow evaluation, which the patient passed and is currently on soft mechanical diet Quadriplegia secondary to intracranial bleed in July of 2023 -patient was treated for stroke and received dose of alteplase which resulted in intracranial bleeding -patient unable to move upper or lower extremities. Only moves head and minimally bilateral shoulders. Patient is alert and oriented x3. Sinus tachycardia likely due to anxiety -patient had episode of sinus tachycardia in the 130s-140s that resolved after Ativan administration -continuous cardiac monitoring -EKG showed sinus tachycardia, no ST segment elevation or depression or any T- wave abnormalities. Patient denied chest pain. -patient received 500 cc bolus of normal saline Hx of low blood pressure -Monitor Goals of care discussed with the patient and family at bedside for >30min, FULL CODE Plan discussed with Dr. Galvez Plan discussed with: Patient, Other Dietary Evaluation Review Comments: 1. Provide TPN per pharmacy, if NPO > 7 days 2. Provide TF Jevity 1.2 @40 ml/hr (53 gPro, 1152 kcal), if EN/GI accessible, and pt is extubated and PO feeding not medically feasible. Continue the same TF portocol with clinimix @41ml/hr if pt has to remain intubated. 3. Offer a Regular diet texture as tolerated if pt is off vent and passing a sppech eval. Expected Outcomes/Goals: Provide and Monitor nutrition support to meet 75% of her needs. BRINDA HELM RESIDENT Nov 06, 2024 14:05
--- NOTE | 2024-11-06 21:23 | DVHPN2 ---
Progress Note - Dictate Date Seen: Nov 06, 2024 Has the PT tested + for MRSA If YES, has PT been informed?: No Medical Necessity Reason Pt with a Central, PICC or Fol: Yes The following are medically ne: Rhodes Catheter Reason for rhodes catheter: Strict I&O Subjective Patient seen and examined at bedside. On supplemental oxygen Overnight events reviewed. vital signs Vital Sign Date Time Temp Pulse Resp B/P (MAP) Pulse Ox O2 Delivery O2 Flow Rate FiO2 11/06/24 18:52 88 20 92 25.0 90 11/06/24 18:47 118/54 11/06/24 16:00 97.7 97.7 11/06/24 15:42 Hi-Flow Heated NC+ Total Intake and Output 11/05/24 11/05/24 11/06/24 15:00 23:00 07:00 Intake Total 250 ml Output Total 1701 ml 800 ml Balance -1701 ml -550 ml medications Current Medications Medications Dose Ordered Sig/Carlos Route Start Time Stop Time Status Last Admin Dose Admin Ipratropium [place] 0.5 mg Q4HR NEB 11/01/24 06:00 11/06/24 18:51 0.5 MG Levalbuterol HCl 1.25 mg Q4HR NEB 11/01/24 06:00 11/06/24 18:51 1.25 MG Acetaminophen 650 mg Q6HP PRN PO 11/01/24 06:00 11/02/24 06:29 650 MG Enoxaparin Sodium 40 mg DAILY SC 11/01/24 10:37 11/06/24 09:43 40 MG Baclofen 20 mg Q8HR PO 11/01/24 15:30 11/06/24 14:00 20 MG Dexmedetomidine HCl 400 mcg/ Dextrose 100 ml @ 3 mls/hr Q24H IV 11/02/24 15:30 Ciprofloxacin 200 ml @ 200 mls/hr Q12HR IV 11/03/24 22:00 Hold 11/05/24 09:07 200 MLS/HR Docusate Sodium 100 mg BID GT 11/03/24 22:00 11/06/24 09:43 100 MG Polyethylene Glycol 17 gm DAILY PO 11/03/24 22:00 11/06/24 09:44 17 GM Hydromorphone HCl 0.25 mg Q4HPRN PRN IV 11/03/24 19:00 11/06/24 18:17 0.25 MG Acetylcysteine 100 mg Q4HR NEB 11/03/24 22:00 11/06/24 18:52 100 MG Ketorolac Tromethamine 15 mg Q6HPRN PRN IV 11/03/24 19:30 11/08/24 19:29 11/06/24 13:07 15 MG Metronidazole 100 ml @ 100 mls/hr Q8HR IV 11/05/24 14:00 11/06/24 13:07 100 MLS/HR Levofloxacin/ Dextrose 150 ml @ 100 mls/hr DAILY@1400 IV 11/05/24 14:00 11/09/24 13:59 11/06/24 13:58 100 MLS/HR objective Gen.: Patient lying in bed in no apparent distress. On supplemental oxygen Head: Normocephalic, atraumatic Eyes: EOMI/PERRLA. Ears: Normal hearing. Normal anatomy. Neck/trachea: Trachea midline, supple. Tracheostomy scar. Nose: Normal external anatomy. Mouth: Moist mucous membranes. Chest: Decreased air entry bilaterally. No wheezing. Right lower lobe rhonchi. Dullness to percussion in right lower lung field. Cardio vascular: Positive S1, positive S2. Regular rate and rhythm. Abdomen: Positive bowel sounds in all 4 quadrants. Soft, non-tender, non- distended. : Deferred. Rectal: Deferred Skin: Warm, dry. Extremities: 2+ radial pulses bilaterally. No lower extremity edema. Neuro: Awake, alert, oriented x3. Quadriplegia laboratory and microbiology Laboratory Tests 11/06/24 03:41 Test 11/06/24 03:41 Range/Units Serum Glucose 99 74-106 mg/dL Assessment/Plan Impression: Acute hypoxic respiratory failure Pneumonia, aspiration versus community-acquired Sepsis due to pneumonia Pulmonary embolism ruled out Mucus plugging of right lower lobe Atelectasis Tracheostomy, history Events: Remains on supplemental oxygen - Heated HF NC On high flow O2 with FR 20 -->25 LPM, FiO2 80 -->95% Alternate with BiPAP Taper O2 as tolerated CXR reviewed, demonstrates RLL atelectasis. Head of bed elevation Aspiration precautions Pulmonary toileting NTS Continue bronchodilators/Mucomyst Chest physiotherapy Continue antibiotics - on Levaquin/Flagyl Sputum cultures grew Pseudomonas aeruginosa. Incentive spirometry Pain control Avoid oversedation Postural drainage Start Levophed if necessary to keep SBP >90 mmHg Patient on regular diet. DVT prophylaxis with Lovenox Recommend outpatient evaluation in [facility]. Patient would benefit from evaluation at [facility] as outpatient. Options would include NIV + cough-assist device in addition to vest therapy. On 11/05/24, had an extensive discussion with patients family and patient in regards to management plan. I presented the option of emergent intubation and bronchoscopy as patient states that she feels like shes drowning at times and she is asphyxiating. I also presented the option of continuing the current medical management with bronchodilators, chest physiotherapy , postural drainage, and mucolytics in addition to abx. There is the risk of ventilator dependence given patient quadriplegia and diaphragmatic weakening. She continues to accumulate secretions that are very thick and difficult for her to expectorate. For now, patient and family have decided to continue with current medical management and deferred bronchoscopy. I have noticed she is also at risk for mechanical vent dependence, including requiring tracheostomy. Labs and imaging reviewed. Rest of plan as noted below. Discussed with Dr. Cuevas Plan: Continue supplemental oxygen High flow oxygen alternating with BiPAP Titrate to keep sats above 90% Continue bronchodilators NTS Head of bed elevation Aspiration precautions Continue antibiotics Follow up cultures DVT prophylaxis Prognosis: Poor given multiple comorbidities. Condition: Critical Rest of plan per hospitalist and other consultants. A total of 35 minutes of critical care time was spent reviewing the patient record, examining the patient, making a diagnostic and therapeutic plan, discussing this plan with the medical personnel, following up on diagnostic studies and following the patient for clinical stability excluding any and all procedures. At least 50% of this time was spent in direct, [id number] contact. Thank you Dr. Cuevas for allowing me to participate in this patient's care. Further recommendations will depend on patient's clinical course. Please do not hesitate to contact me if you have any questions or concerns. This medical document was created using an electronic medical record system with [employer] system. Although this document has been carefully reviewed, there may still be some phonetic and typographical errors. These areas are purely typographical due to imperfections of the software programs, and do not reflect any compromise in the patient's medical care. Dietary Evaluation Review Comments: 1. Provide TPN per pharmacy, if NPO > 7 days 2. Provide TF Jevity 1.2 @40 ml/hr (53 gPro, 1152 kcal), if EN/GI accessible, and pt is extubated and PO feeding not medically feasible. Continue the same TF portocol with clinimix @41ml/hr if pt has to remain intubated. 3. Offer a Regular diet texture as tolerated if pt is off vent and passing a sppech eval. Expected Outcomes/Goals: Provide and Monitor nutrition support to meet 75% of her needs. Plan discussed with: Other (RN) Critical Care Time(min): 35 JAVIER NELSON MD Nov 06, 2024 21:22
[2024-11-06] MEDS: fentaNYL Drip 2500mCg/250mlNS 250 ML IV ONE (22:28)
[2024-11-07] VITALS (29 sets, daily range): BP systolic 84–119; BP diastolic 48–90; PULSE 66–133; RESP 12–23; TEMP 97.2–98.7; O2SAT 88–97
[2024-11-07] MEDS: SODIUM CHLORIDE 0.9% 500 ML IV ONE (05:11)
[2024-11-07 07:18] LABS: Basophils # (auto) 0 10 ^3/uL (0-0.2); Basophils % (auto) 0.3 % (0.0-2.0); Eosinophils # (auto) 0.2 10 ^3/uL (0-0.8); Eosinophils % (auto) 3.1 % (0.0-7.0); Hemoglobin 10.9 g/dL (12.2-16.2); Lymphocytes # (auto) 1.6 10 ^3/uL (0.4-5.4); Lymphocytes % (auto) 29.4 % (10.0-50.0); Mean Corpuscular Hemoglobin 29.2 pg (28.0-32.0); Mean Corpuscular Volume 88.4 fL (80.0-100.0); Monocytes # (auto) 0.5 10 ^3/uL (0-1.3); Monocytes % (auto) 9.7 % (0.0-12.0); Neutrophils # (auto) 3.2 10 ^3/uL (1.6-8.6); Neutrophils % (auto) 57.5 % (37.0-80.0); Platelet Count (auto) 277 10^3/uL (140-450); Red Blood Cells 3.73 10^6/uL (4.0-5.20); Red Cell Distribution Width 17.9 % (11.8-14.3); White Blood Cell 5.6 10^3/uL (4.4-10.8)
[2024-11-07 07:39] LABS: Alanine Aminotransferase 18 U/L (7-40); Albumin 3.6 g/dL (3.2-4.8); Alkaline Phosphatase 91 U/L (46-116); Anion Gap 7 (5-15); BUN/Creatinine Ratio 29.2 (10.0-20.0); Calcium 8.7 mg/dL (8.7-10.4); Carbon Dioxide 29 mmol/L (20-31); Glucose 80 mg/dL (74-106); Sodium 144 mmol/L (136-145)
[2024-11-07 07:40] LABS: Total Protein 5.8 g/dL (5.7-8.2)
[2024-11-07 07:41] LABS: Aspartate Aminotransferase 10 U/L (13-40); Blood Urea Nitrogen 7 mg/dL (9-23); Chloride 108 mmol/L (98-107); Potassium 3.4 mmol/L (3.5-5.1)
[2024-11-07 07:46] LABS: Bilirubin, Total 0.2 mg/dL (0.2-1.0)
[2024-11-07] MEDS: POTASSIUM CHL 20MEQ/100ML 100 ML IV SCH (10:00)
--- NOTE | 2024-11-07 13:51 | DVHPNRES ---
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 Patient denies additional past medical history of relevance but states that her blood pressure runs in the lower side. The patient presented to the ED due to shortness of breath associated with sputum production without being able to expectorate due to her condition. The patient reported shortness of breath, phlegm associated with fever but no chills. The patient denied chest pain, abdominal pain, nausea, vomiting or any other symptoms. The patient also denied any sick contacts recently. Initial chest x- ray revealed significant consolidation in the right lung base and middle lobe with a opacities extending from the base to the upper lobe. A CT angio of the chest was performed showing no evidence of pulmonary embolism but with consolidation in the right middle and lower lobes. The patient was started on vancomycin, meropenem, azithromycin for sepsis due to right lung bacterial pneumonia. On 11/02/2024 the patient underwent bronchoscopy on right middle and lower lobe with significant mucus plugging especially in are one-L10. Bronchial alveolar lavage was sent for microbiology. Sputum culture is growing Pseudomonas which is resistant to meropenem, we stopped meropenem and azithromycin and we started ciprofloxacin IV and we will continue IV vancomycin. Patient seen and examined at bedside. Patient alert and oriented x3. The patient is currently on high-flow nasal cannula at 20 L of oxygen with an FiO2 of 65%. Last chest x-ray which was performed yesterday showed right lung base opacities which could be consistent with severe consolidation/mucus plug/atelectasis. The patient is currently on IV levofloxacin and metronidazole. We will stop metronidazole and start the patient on IV clindamycin. We will continue Mucomyst, levalbuterol and ipratropium med nebs. The patient is having trouble expectorating secretions and apparently is reaccumulating secretions in the right lower lobe. Case has been spoke with Dr. Borden, and Dr. Salinas. We will continue on IV levofloxacin and clindamycin at this time. We will defer bronchoscopy at this time. ROS Constitutional: Reports generalized weakness and generalized malaise. Denies weight loss, fever and chills. HEENT: Denies changes in vision and hearing. Respiratory: Reports mild to moderate shortness of breaths and is unable to cough. Cardiovascular: Denies chest discomfort or palpitations GI: Denies abdominal pain, nausea, vomiting and diarrhea. : Denies dysuria and urinary frequency. Musculoskeletal: Denies myalgias and joint pain Skin: Denies rash and pruritus. Neurological: Denies dizziness, headache, vision or hearing problems Objective vital signs Vital Sign Date Time Temp Pulse Resp B/P (MAP) Pulse Ox O2 Delivery O2 Flow Rate FiO2 11/07/24 12:00 91 11/07/24 12:00 14 96 Hi-Flow Heated NC+ 25 60 60 11/07/24 11:31 92/60 11/07/24 04:00 98.7 98.7 Total Intake and Output 11/06/24 11/06/24 11/07/24 15:00 23:00 07:00 Intake Total 250 ml 450 ml 260 ml Output Total 900 ml 500 ml Balance 250 ml -450 ml -240 ml medications Current Medications Medications Dose Ordered Sig/Carlos Route Start Time Stop Time Status Last Admin Dose Admin Ipratropium Central 0.5 mg Q4HR NEB 11/01/24 06:00 11/07/24 10:32 0.5 MG Levalbuterol HCl 1.25 mg Q4HR NEB 11/01/24 06:00 11/07/24 10:34 1.25 MG Acetaminophen 650 mg Q6HP PRN PO 11/01/24 06:00 11/02/24 06:29 650 MG Enoxaparin Sodium 40 mg DAILY SC 11/01/24 10:37 11/07/24 10:47 40 MG Baclofen 20 mg Q8HR PO 11/01/24 15:30 11/07/24 13:21 20 MG Dexmedetomidine HCl 400 mcg/ Dextrose 100 ml @ 3 mls/hr Q24H IV 11/02/24 15:30 Ciprofloxacin 200 ml @ 200 mls/hr Q12HR IV 11/03/24 22:00 Hold 11/05/24 09:07 200 MLS/HR Docusate Sodium 100 mg BID GT 11/03/24 22:00 11/07/24 10:46 100 MG Polyethylene Glycol 17 gm DAILY PO 11/03/24 22:00 11/07/24 10:46 17 GM Hydromorphone HCl 0.25 mg Q4HPRN PRN IV 11/03/24 19:00 11/07/24 09:28 0.25 MG Acetylcysteine 100 mg Q4HR NEB 11/03/24 22:00 11/07/24 10:34 100 MG Ketorolac Tromethamine 15 mg Q6HPRN PRN IV 11/03/24 19:30 11/08/24 19:29 11/06/24 22:40 15 MG Levofloxacin/ Dextrose 150 ml @ 100 mls/hr DAILY@1400 IV 11/05/24 14:00 11/09/24 13:59 11/06/24 13:58 100 MLS/HR Clindamycin Phosphate 50 ml @ 50 mls/hr Q8HR IV 11/07/24 14:00 Examination Physical Examination General: Patient alert and oriented in person, place and time. Patient is quadriplegic and unable to expectorate. Patient following commands. HEENT: Normocephalic, atraumatic, moist mucous membranes Respiratory/pulmonary: There are absent breath sounds on right lung base and middle lobe. There are coarse sounds in the apical right lung as well. There are mild coarse sounds in the left lung as well (which could be due to secretions. No wheezes at this time. Cardiovascular: Normal heart sounds S1 and S2 with no associated murmurs Abdomen: Abdomen nondistended, there is no pain to palpation in any of the abdominal quadrants, no palpable masses. Extremities: There is no peripheral edema present at the lower extremities. Patient unable to move upper or lower extremities due to her condition. Peripheral Pulses: 3+ Radial (R). 3+ Radial (L). 3+ Dorsalis pedis (R). 3+ Dorsalis pedis(L) Skin: No rashes or pruritus, there is no sacral edema present at this time. Neurological: Patient is quadriplegic, only able to move head and minimally shoulders. patient is alert and oriented x3. laboratory and microbiology Laboratory Tests 11/07/24 05:35 Test 11/07/24 05:35 Range/Units Serum Glucose 80 74-106 mg/dL Microbiology Date/Time Source Procedure Growth Status 11/02/24 12:15 Nose MRSA Screen - Final Complete 11/01/24 10:54 Sputum Gram Stain - Final Complete 11/01/24 10:54 Respiratory Culture - Final Pseudomonas aeruginosa Complete 11/01/24 08:00 Voided Urine Urine Culture - Final Complete 11/01/24 04:44 Blood Blood Culture - Final NO GROWTH AFTER 5 DAYS OF INCUBATION. Complete Problem List/Assessment/Plan Problem List/Assessment/Plan Assessment/Plan Acute hypoxic respiratory failure due to right lung bacterial gram+/- pneumonia Possible aspiration pneumonia Sepsis likely due to above Possible mucus plug on right lower lobe -initial chest x-ray showed complete opacities on right lung especially right lung base and mid lobe. -right lung beckett are diminished and absent at the base and middle lobe. -CT angio of the chest showed no pulmonary embolism but showed diffuse consolidations in the right middle and lower lobes. -currently on high-flow nasal cannula with 20 L of oxygen with an FiO2 of 65% -Chest U/S showed no evidence of pleural effusion -Continue IV levofloxacin -Stop IV metronidazole -Start IV clindamycin -continue respiratory therapy with levalbuterol and ipratropium med nebs. -consulted pulmonology, which is on board -Bronchoscopy was performed on 11/02/24. -No subsequent bronchoscopy by now. -bronchioalveolar lavage is pending -ordered CT scan of the chest without contrast to evaluate right lower lobe which showed low volumes on the right lung white opacities in the middle and lower lobes. -Ordered swallow evaluation, which the patient passed and is currently on soft mechanical diet -blood culture came back negative but sputum culture is growing Pseudomonas which is resistant to meropenem. Quadriplegia secondary to intracranial bleed in July of 2023 -patient was treated for stroke and received dose of alteplase which resulted in intracranial bleeding -patient unable to move upper or lower extremities. Only moves head and minimally bilateral shoulders. Patient is alert and oriented x3. Sinus tachycardia likely due to anxiety -patient had episode of sinus tachycardia in the 130s-140s that resolved after Ativan administration -continuous cardiac monitoring -EKG showed sinus tachycardia, no ST segment elevation or depression or any T- wave abnormalities. Patient denied chest pain. -patient received 500 cc bolus of normal saline Hx of low blood pressure -Monitor Goals of care discussed with the patient and family at bedside for >30min, FULL CODE Plan discussed with Dr. Salinas Plan discussed with: Patient (plan discussed wiht the patient which agreed and understood.) My Orders My Orders Orders - SIDRA WILSON Procedure Category Date Status Time Clindamycin 300mg Iv PHA 11/07/24 In Process (Cleocin Iv) 14:00 Dietary Evaluation Review Comments: 1. Provide TPN per pharmacy, if NPO > 7 days 2. Provide TF Jevity 1.2 @40 ml/hr (53 gPro, 1152 kcal), if EN/GI accessible, and pt is extubated and PO feeding not medically feasible. Continue the same TF portocol with clinimix @41ml/hr if pt has to remain intubated. 3. Offer a Regular diet texture as tolerated if pt is off vent and passing a sppech eval. Expected Outcomes/Goals: Provide and Monitor nutrition support to meet 75% of her needs. Date of Service: Nov 07, 2024 Billing Provider: JENNIFER VÁZQUEZ MD Common Visit Codes: 54971-[id number] CARE-EACH +30MIN SIDRA WILSON Nov 07, 2024 13:51 JENNIFER VÁZQUEZ MD Nov 09, 2024 00:21
[2024-11-07] MEDS: CLINDAMYCIN 300MG IV 50 ML IV SCH (14:10)
[2024-11-07] MEDS: POTASSIUM CHL 20MEQ/100ML 100 ML IV ONE (16:56)
--- NOTE | 2024-11-07 22:23 | DVHPN2 ---
Progress Note - Dictate Date Seen: Nov 07, 2024 Has the PT tested + for MRSA If YES, has PT been informed?: No Medical Necessity Reason Pt with a Central, PICC or Fol: Yes The following are medically ne: Rhodes Catheter Reason for rhodes catheter: Strict I&O Subjective Patient seen and examined at bedside. On supplemental oxygen Overnight events reviewed. vital signs Vital Sign Date Time Temp Pulse Resp B/P (MAP) Pulse Ox O2 Delivery O2 Flow Rate FiO2 11/07/24 19:03 101 20 99/67 11/07/24 18:00 91 11/07/24 16:00 Hi-Flow Heated NC+ 20 50 50 11/07/24 16:00 98.0 98.0 Total Intake and Output 11/06/24 11/06/24 11/07/24 15:00 23:00 07:00 Intake Total 250 ml 450 ml 260 ml Output Total 900 ml 500 ml Balance 250 ml -450 ml -240 ml medications Current Medications Medications Dose Ordered Sig/Carlos Route Start Time Stop Time Status Last Admin Dose Admin Ipratropium [place] 0.5 mg Q4HR NEB 11/01/24 06:00 11/07/24 22:17 0.5 MG Levalbuterol HCl 1.25 mg Q4HR NEB 11/01/24 06:00 11/07/24 22:17 1.25 MG Acetaminophen 650 mg Q6HP PRN PO 11/01/24 06:00 11/02/24 06:29 650 MG Enoxaparin Sodium 40 mg DAILY SC 11/01/24 10:37 11/07/24 10:47 40 MG Baclofen 20 mg Q8HR PO 11/01/24 15:30 11/07/24 21:57 20 MG Dexmedetomidine HCl 400 mcg/ Dextrose 100 ml @ 3 mls/hr Q24H IV 11/02/24 15:30 Ciprofloxacin 200 ml @ 200 mls/hr Q12HR IV 11/03/24 22:00 Hold 11/05/24 09:07 200 MLS/HR Docusate Sodium 100 mg BID GT 11/03/24 22:00 11/07/24 21:57 100 MG Polyethylene Glycol 17 gm DAILY PO 11/03/24 22:00 11/07/24 10:46 17 GM Hydromorphone HCl 0.25 mg Q4HPRN PRN IV 11/03/24 19:00 11/07/24 18:33 0.25 MG Acetylcysteine 100 mg Q4HR NEB 11/03/24 22:00 11/07/24 22:17 100 MG Ketorolac Tromethamine 15 mg Q6HPRN PRN IV 11/03/24 19:30 11/08/24 19:29 11/07/24 22:15 15 MG Levofloxacin/ Dextrose 150 ml @ 100 mls/hr DAILY@1400 IV 11/05/24 14:00 11/09/24 13:59 11/07/24 14:09 100 MLS/HR Clindamycin Phosphate 50 ml @ 50 mls/hr Q8HR IV 11/07/24 14:00 11/07/24 21:57 50 MLS/HR objective Gen.: Patient lying in bed in no apparent distress. On supplemental oxygen Head: Normocephalic, atraumatic Eyes: EOMI/PERRLA. Ears: Normal hearing. Normal anatomy. Neck/trachea: Trachea midline, supple. Tracheostomy scar. Nose: Normal external anatomy. Mouth: Moist mucous membranes. Chest: Decreased air entry bilaterally. No wheezing. Right lower lobe rhonchi. Dullness to percussion in right lower lung field. Cardio vascular: Positive S1, positive S2. Regular rate and rhythm. Abdomen: Positive bowel sounds in all 4 quadrants. Soft, non-tender, non- distended. : Deferred. Rectal: Deferred Skin: Warm, dry. Extremities: 2+ radial pulses bilaterally. No lower extremity edema. Neuro: Awake, alert, oriented x3. Quadriplegia laboratory and microbiology Laboratory Tests 11/07/24 05:35 Test 11/07/24 05:35 Range/Units Serum Glucose 80 74-106 mg/dL Assessment/Plan Impression: Acute hypoxic respiratory failure Pneumonia, aspiration versus community-acquired Sepsis due to pneumonia Pulmonary embolism ruled out Mucus plugging of right lower lobe Atelectasis Tracheostomy, history Events: Remains on supplemental oxygen - Heated HF NC On high flow O2 with FR 20 LPM, FiO2 45% Improved O2 requirements (FiO2 was reduced from 95%) Taper O2 as tolerated BiPAP PRN Head of bed elevation Aspiration precautions Pulmonary toileting NTS Continue bronchodilators/Mucomyst Chest physiotherapy Continue antibiotics - on Levaquin/Flagyl Sputum cultures grew Pseudomonas aeruginosa. Incentive spirometry Pain control Avoid oversedation Postural drainage Start Levophed if necessary to keep SBP >90 mmHg Patient on regular diet. DVT prophylaxis with Lovenox Recommend outpatient evaluation in [facility]. Patient would benefit from evaluation at [facility] as outpatient. Options would include NIV + cough-assist device in addition to vest therapy. On 11/05/24, had an extensive discussion with patients family and patient in regards to management plan. I presented the option of emergent intubation and bronchoscopy as patient states that she feels like shes drowning at times and she is asphyxiating. I also presented the option of continuing the current medical management with bronchodilators, chest physiotherapy , postural drainage, and mucolytics in addition to abx. There is the risk of ventilator dependence given patient quadriplegia and diaphragmatic weakening. She continues to accumulate secretions that are very thick and difficult for her to expectorate. For now, patient and family have decided to continue with current medical management and deferred bronchoscopy. I have noticed she is also at risk for mechanical vent dependence, including requiring tracheostomy. Labs and imaging reviewed. Rest of plan as noted below. Plan: Continue supplemental oxygen High flow oxygen; BiPAP PRN Titrate to keep sats above 90% Continue bronchodilators NTS Head of bed elevation Aspiration precautions Continue antibiotics Follow up cultures DVT prophylaxis Prognosis: Poor given multiple comorbidities. Condition: Critical Rest of plan per hospitalist and other consultants. A total of 35 minutes of critical care time was spent reviewing the patient record, examining the patient, making a diagnostic and therapeutic plan, discussing this plan with the medical personnel, following up on diagnostic studies and following the patient for clinical stability excluding any and all procedures. At least 50% of this time was spent in direct, [id number] contact. Thank you Dr. Cuevas for allowing me to participate in this patient's care. Further recommendations will depend on patient's clinical course. Please do not hesitate to contact me if you have any questions or concerns. This medical document was created using an electronic medical record system with [employer] system. Although this document has been carefully reviewed, there may still be some phonetic and typographical errors. These areas are purely typographical due to imperfections of the software programs, and do not reflect any compromise in the patient's medical care. Dietary Evaluation Review Comments: 1. Provide TPN per pharmacy, if NPO > 7 days 2. Provide TF Jevity 1.2 @40 ml/hr (53 gPro, 1152 kcal), if EN/GI accessible, and pt is extubated and PO feeding not medically feasible. Continue the same TF portocol with clinimix @41ml/hr if pt has to remain intubated. 3. Offer a Regular diet texture as tolerated if pt is off vent and passing a sppech eval. Expected Outcomes/Goals: Provide and Monitor nutrition support to meet 75% of her needs. Plan discussed with: Other (ERASMO Parker) Critical Care Time(min): 35 JAVIER NELSON MD Nov 07, 2024 22:23
[2024-11-08] VITALS (30 sets, daily range): BP systolic 88–144; BP diastolic 45–101; PULSE 74–120; RESP 14–27; TEMP 98.1–99; O2SAT 89–96
[2024-11-08 04:02] LABS: Basophils # (auto) 0 10 ^3/uL (0-0.2); Basophils % (auto) 0.5 % (0.0-2.0); Eosinophils # (auto) 0.2 10 ^3/uL (0-0.8); Eosinophils % (auto) 2.5 % (0.0-7.0); Hematocrit 35.5 % (36.0-46.0); Hemoglobin 11.9 g/dL (12.2-16.2); Lymphocytes # (auto) 1.9 10 ^3/uL (0.4-5.4); Lymphocytes % (auto) 27.4 % (10.0-50.0); Mean Corpuscular Hemoglobin 28.9 pg (28.0-32.0); Mean Corpuscular Hgb Conc. 33.4 g/dL (32.0-36.0); Mean Corpuscular Volume 86.6 fL (80.0-100.0); Monocytes # (auto) 0.5 10 ^3/uL (0-1.3); Monocytes % (auto) 6.6 % (0.0-12.0); Neutrophils # (auto) 4.4 10 ^3/uL (1.6-8.6); Nucleated Red Blood Cells % 0.1 %; Platelet Count (auto) 332 10^3/uL (140-450); Red Cell Distribution Width 17.6 % (11.8-14.3)
[2024-11-08 04:25] LABS: Alanine Aminotransferase 23 U/L (7-40); Albumin 3.9 g/dL (3.2-4.8); Alkaline Phosphatase 108 U/L (46-116); Anion Gap 8 (5-15); Blood Urea Nitrogen 9 mg/dL (9-23); Calcium 9.6 mg/dL (8.7-10.4); Carbon Dioxide 29 mmol/L (20-31); Chloride 103 mmol/L (98-107); Glucose 101 mg/dL (74-106); Potassium 4.2 mmol/L (3.5-5.1); Sodium 140 mmol/L (136-145)
[2024-11-08 04:26] LABS: Total Protein 6.6 g/dL (5.7-8.2)
[2024-11-08 04:40] LABS: Aspartate Aminotransferase 12 U/L (13-40); Bilirubin, Total 0.2 mg/dL (0.2-1.0)
--- NOTE | 2024-11-08 05:10 | DVH ---
CHEST RADIOGRAPH Indication: review right lowerlung base Technique: Single frontal view of the chest was obtained Comparison: XY CHEST PORTABLE on DOS: 11/06/24 FINDINGS: Lines and Tubes: None Lungs: Right lower lobe atelectasis. Pleura: No effusion. No pneumothorax. Cardiomediastinal contours: Unremarkable Bones: No acute osseous abnormality. IMPRESSION: 1. Right lower lobe atelectasis noted.
[2024-11-08] MEDS: FLUCONAZOLE 200MG/100ML 100 ML IV SCH (11:00)
--- NOTE | 2024-11-08 13:39 | DVHPNRES ---
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 Patient denies additional past medical history of relevance but states that her blood pressure runs in the lower side. The patient presented to the ED due to shortness of breath associated with sputum production without being able to expectorate due to her condition. The patient reported shortness of breath, phlegm associated with fever but no chills. The patient denied chest pain, abdominal pain, nausea, vomiting or any other symptoms. The patient also denied any sick contacts recently. Initial chest x- ray revealed significant consolidation in the right lung base and middle lobe with a opacities extending from the base to the upper lobe. A CT angio of the chest was performed showing no evidence of pulmonary embolism but with consolidation in the right middle and lower lobes. The patient was started on vancomycin, meropenem, azithromycin for sepsis due to right lung bacterial pneumonia. On 11/02/2024 the patient underwent bronchoscopy on right middle and lower lobe with significant mucus plugging especially in are one-L10. Bronchial alveolar lavage was sent for microbiology. Sputum culture is growing Pseudomonas which is resistant to meropenem, we stopped meropenem and azithromycin and we started ciprofloxacin IV and we will continue IV vancomycin. Patient seen and examined at bedside. The patient is currently on high-flow nasal cannula at 20 L of oxygen with an FiO2 of 40%. The patient is currently saturating 94%. The patient still having coarse sounds on the right lung. Last chest x-ray is showing right lower lobe atelectasis with low volumes and opacities in the right lower base. We are currently giving IV levofloxacin and clindamycin. We also started fluconazole 400 mg IV b.i.d. to cover broad- spectrum fungal infection as well. Pulmonology is on board which agreed with current plan. Plan was discussed with pulmonology and all primary team. We will continue BiPAP at night. ROS Constitutional: Denies weight loss, fever and chills. HEENT: Denies changes in vision and hearing. Respiratory: Reports mild shortness of breath associated with a lot of secretions and inability to cough Cardiovascular: Denies chest discomfort or palpitations GI: Denies abdominal pain, nausea, vomiting and diarrhea. : Denies dysuria and urinary frequency. Musculoskeletal: Denies myalgias and joint pain Skin: Denies rash and pruritus. Neurological: Denies dizziness, headache, vision or hearing problems Objective vital signs Vital Sign Date Time Temp Pulse Resp B/P (MAP) Pulse Ox O2 Delivery O2 Flow Rate FiO2 11/08/24 13:01 98 24 129/74 11/08/24 10:00 92 11/08/24 09:48 Hi-Flow Heated NC+ 20 40 40 11/08/24 08:00 98.2 98.2 Total Intake and Output 11/07/24 11/07/24 11/08/24 15:00 23:00 07:00 Intake Total 100 ml 600 ml 500 ml Output Total 2200 ml 1800 ml Balance 100 ml -1600 ml -1300 ml medications Current Medications Medications Dose Ordered Sig/Carlos Route Start Time Stop Time Status Last Admin Dose Admin Ipratropium [place] 0.5 mg Q4HR NEB 11/01/24 06:00 11/08/24 09:48 0.5 MG Levalbuterol HCl 1.25 mg Q4HR NEB 11/01/24 06:00 11/08/24 09:48 1.25 MG Acetaminophen 650 mg Q6HP PRN PO 11/01/24 06:00 11/02/24 06:29 650 MG Enoxaparin Sodium 40 mg DAILY SC 11/01/24 10:37 11/08/24 09:22 40 MG Baclofen 20 mg Q8HR PO 11/01/24 15:30 11/08/24 06:05 20 MG Dexmedetomidine HCl 400 mcg/ Dextrose 100 ml @ 3 mls/hr Q24H IV 11/02/24 15:30 Ciprofloxacin 200 ml @ 200 mls/hr Q12HR IV 11/03/24 22:00 Hold 11/05/24 09:07 200 MLS/HR Docusate Sodium 100 mg BID GT 11/03/24 22:00 11/07/24 21:57 100 MG Polyethylene Glycol 17 gm DAILY PO 11/03/24 22:00 11/07/24 10:46 17 GM Hydromorphone HCl 0.25 mg Q4HPRN PRN IV 11/03/24 19:00 11/08/24 12:10 0.25 MG Acetylcysteine 100 mg Q4HR NEB 11/03/24 22:00 11/08/24 09:48 100 MG Ketorolac Tromethamine 15 mg Q6HPRN PRN IV 11/03/24 19:30 11/08/24 19:29 11/08/24 10:32 15 MG Levofloxacin/ Dextrose 150 ml @ 100 mls/hr DAILY@1400 IV 11/05/24 14:00 11/09/24 13:59 11/07/24 14:09 100 MLS/HR Clindamycin Phosphate 50 ml @ 50 mls/hr Q8HR IV 11/07/24 14:00 11/08/24 13:01 50 MLS/HR Fluconazole 100 ml @ 100 mls/hr 10,11 IV 11/08/24 11:00 11/08/24 11:00 100 MLS/HR Examination Physical Examination General: Patient alert and oriented in person, place and time. Patient is quadriplegic and unable to expectorate. Patient following commands. HEENT: Normocephalic, atraumatic, moist mucous membranes Respiratory/pulmonary: There are absent breath sounds on right lung base. There are coarse sounds in the apical right lung as well. No wheezes at this time. Cardiovascular: Normal heart sounds S1 and S2 with no associated murmurs Abdomen: Abdomen nondistended, there is no pain to palpation in any of the abdominal quadrants, no palpable masses. Extremities: There is no peripheral edema present at the lower extremities. Patient unable to move upper or lower extremities due to her condition. Peripheral Pulses: 3+ Radial (R). 3+ Radial (L). 3+ Dorsalis pedis (R). 3+ Dorsalis pedis(L) Skin: No rashes or pruritus, there is no sacral edema present at this time. Neurological: Patient is quadriplegic, only able to move head and minimally shoulders. patient is alert and oriented x3. laboratory and microbiology Laboratory Tests 11/08/24 03:33 Test 11/08/24 03:33 Range/Units Serum Glucose 101 74-106 mg/dL Microbiology Date/Time Source Procedure Growth Status 11/02/24 12:15 Nose MRSA Screen - Final Complete 11/01/24 10:54 Sputum Gram Stain - Final Complete 11/01/24 10:54 Respiratory Culture - Final Pseudomonas aeruginosa Complete 11/01/24 08:00 Voided Urine Urine Culture - Final Complete 11/01/24 04:44 Blood Blood Culture - Final NO GROWTH AFTER 5 DAYS OF INCUBATION. Complete Problem List/Assessment/Plan Problem List/Assessment/Plan Assessment/Plan Acute hypoxic respiratory failure due to right lung bacterial gram+/- pneumonia Possible aspiration pneumonia Sepsis likely due to above Possible mucus plug on right lower lobe -initial chest x-ray showed complete opacities on right lung especially right lung base and mid lobe. -right lung beckett are diminished and absent at the base and middle lobe. -CT angio of the chest showed no pulmonary embolism but showed diffuse consolidations in the right middle and lower lobes. -currently on high-flow nasal cannula with 20 L of oxygen with an FiO2 of 40% -Chest U/S showed no evidence of pleural effusion -Continue IV levofloxacin -Continue IV clindamycin -Start IV Fluconazole 400mg BID -continue respiratory therapy with levalbuterol and ipratropium med nebs. -Mechanical percussion therapy -Mucomyst -consulted pulmonology, which is on board -Bronchoscopy was performed on 11/02/24. -No subsequent bronchoscopy by now. -bronchioalveolar lavage is pending -ordered CT scan of the chest without contrast to evaluate right lower lobe which showed low volumes on the right lung white opacities in the middle and lower lobes. -Ordered swallow evaluation, which the patient passed and is currently on soft mechanical diet -blood culture came back negative but sputum culture is growing Pseudomonas which is resistant to meropenem. Quadriplegia secondary to intracranial bleed in July of 2023 -patient was treated for stroke and received dose of alteplase which resulted in intracranial bleeding -patient unable to move upper or lower extremities. Only moves head and minimally bilateral shoulders. Patient is alert and oriented x3. Sinus tachycardia likely due to anxiety -patient had episode of sinus tachycardia in the 130s-140s that resolved after Ativan administration -continuous cardiac monitoring -EKG showed sinus tachycardia, no ST segment elevation or depression or any T- wave abnormalities. Patient denied chest pain. -patient received 500 cc bolus of normal saline Hx of low blood pressure -Monitor Goals of care discussed with the patient and family at bedside for >30min, FULL CODE Plan discussed with Dr. Salinas and Dr. Borden Plan discussed with: Patient My Orders My Orders Orders - SIDRA WILSON Procedure Category Date Status Time Chest Xray 1 View XY 11/08/24 Resulted 04:00 * Wound Consult CONS 11/08/24 Transmitted Regular Diet DIET 11/08/24 Transmitted Lunch Chest Percussion Tx RT 11/08/24 Logged Initi 10:25 Chest Percussion Tx RT 11/08/24 Logged SUB 10:25 Incentive Spirometry ORDERS 11/08/24 Transmitted 10:25 Fluconazole PHA 11/08/24 In Process 200mg/100ml (Diflucan 11:00 Dietary Evaluation Review Comments: 1. Provide TPN per pharmacy, if NPO > 7 days 2. Provide TF Jevity 1.2 @40 ml/hr (53 gPro, 1152 kcal), if EN/GI accessible, and pt is extubated and PO feeding not medically feasible. Continue the same TF portocol with clinimix @41ml/hr if pt has to remain intubated. 3. Offer a Regular diet texture as tolerated if pt is off vent and passing a sppech eval. Expected Outcomes/Goals: Provide and Monitor nutrition support to meet 75% of her needs. Date of Service: Nov 08, 2024 Billing Provider: JENNIFER VÁZQUEZ MD Common Visit Codes: [id number] CARE-EACH +30MIN SIDRA WILSON Nov 08, 2024 13:39 JENNIFER VÁZQUEZ MD Nov 09, 2024 00:31
--- NOTE | 2024-11-08 16:30 | ECG ---
[facility] Test Date: 2024-11-02 Test Time: 21:28:56 Pat Name: STEPHANI PINEDA Department: Room: [address] [place] [address] A Gender: F High [employer]ensity [employer] Co[employer] Operator: LIZET : 2000 Requested By: JAVIER NELSON Order Number: [id number] Reading MD: Garo Edmond Measurements Intervals [place] Rate: 100 P: 61 [place]: 138 QRS: 31 QRSD: 64 T: 50 QT: 324 QTc: 417 Interpretive Statements Normal sinus rhythm Electronically Signed On 11-08-2024 17:35:23 PST by Garo Edmond Please click the below link to view image of tracing.
--- NOTE | 2024-11-08 23:08 | DVHPN2 ---
Progress Note - Dictate Date Seen: Nov 08, 2024 Has the PT tested + for MRSA If YES, has PT been informed?: No Medical Necessity Reason Pt with a Central, PICC or Fol: Yes The following are medically ne: Rhodes Catheter Reason for rhodes catheter: Strict I&O Subjective Patient seen and examined at bedside. On supplemental oxygen Overnight events reviewed. vital signs Vital Sign Date Time Temp Pulse Resp B/P (MAP) Pulse Ox O2 Delivery O2 Flow Rate FiO2 11/08/24 21:23 85 15 110/58 11/08/24 21:00 92 11/08/24 20:00 98.3 98.3 11/08/24 20:00 Nasal Cannula* 2 N/A Hi-Flow Heated NC+ Total Intake and Output 11/07/24 11/07/24 11/08/24 15:00 23:00 07:00 Intake Total 100 ml 600 ml 500 ml Output Total 2200 ml 1800 ml Balance 100 ml -1600 ml -1300 ml medications Current Medications Medications Dose Ordered Sig/Carlos Route Start Time Stop Time Status Last Admin Dose Admin Ipratropium [place] 0.5 mg Q4HR NEB 11/01/24 06:00 11/08/24 22:39 0.5 MG Levalbuterol HCl 1.25 mg Q4HR NEB 11/01/24 06:00 11/08/24 22:39 1.25 MG Acetaminophen 650 mg Q6HP PRN PO 11/01/24 06:00 11/02/24 06:29 650 MG Enoxaparin Sodium 40 mg DAILY SC 11/01/24 10:37 11/08/24 09:22 40 MG Baclofen 20 mg Q8HR PO 11/01/24 15:30 11/08/24 21:42 20 MG Dexmedetomidine HCl 400 mcg/ Dextrose 100 ml @ 3 mls/hr Q24H IV 11/02/24 15:30 Ciprofloxacin 200 ml @ 200 mls/hr Q12HR IV 11/03/24 22:00 Hold 11/05/24 09:07 200 MLS/HR Docusate Sodium 100 mg BID GT 11/03/24 22:00 11/07/24 21:57 100 MG Polyethylene Glycol 17 gm DAILY PO 11/03/24 22:00 11/07/24 10:46 17 GM Hydromorphone HCl 0.25 mg Q4HPRN PRN IV 11/03/24 19:00 11/08/24 20:53 0.25 MG Acetylcysteine 100 mg Q4HR NEB 11/03/24 22:00 11/08/24 22:39 100 MG Levofloxacin/ Dextrose 150 ml @ 100 mls/hr DAILY@1400 IV 11/05/24 14:00 11/09/24 13:59 11/08/24 13:58 100 MLS/HR Clindamycin Phosphate 50 ml @ 50 mls/hr Q8HR IV 11/07/24 14:00 11/08/24 21:42 50 MLS/HR Fluconazole 100 ml @ 100 mls/hr 10,11 IV 11/08/24 11:00 11/08/24 11:00 100 MLS/HR objective Gen.: Patient lying in bed in no apparent distress. On supplemental oxygen Head: Normocephalic, atraumatic Eyes: EOMI/PERRLA. Ears: Normal hearing. Normal anatomy. Neck/trachea: Trachea midline, supple. Tracheostomy scar. Nose: Normal external anatomy. Mouth: Moist mucous membranes. Chest: Decreased air entry bilaterally. No wheezing. Right lower lobe rhonchi. Dullness to percussion in right lower lung field. Cardio vascular: Positive S1, positive S2. Regular rate and rhythm. Abdomen: Positive bowel sounds in all 4 quadrants. Soft, non-tender, non- distended. : Deferred. Rectal: Deferred Skin: Warm, dry. Extremities: 2+ radial pulses bilaterally. No lower extremity edema. Neuro: Awake, alert, oriented x3. Quadriplegia laboratory and microbiology Laboratory Tests 11/08/24 03:33 Test 11/08/24 03:33 Range/Units Serum Glucose 101 74-106 mg/dL Assessment/Plan Impression: Acute hypoxic respiratory failure Pneumonia, aspiration versus community-acquired Sepsis due to pneumonia Pulmonary embolism ruled out Mucus plugging of right lower lobe Atelectasis Tracheostomy, history Events: Remains on supplemental oxygen Currently on 2 LPM NC Improved O2 requirements - transitioned from high flow Head of bed elevation Aspiration precautions Pulmonary toileting NTS Continue bronchodilators/Mucomyst Chest physiotherapy Continue antibiotics Sputum cultures grew Pseudomonas aeruginosa. Incentive spirometry Pain control Avoid oversedation Postural drainage Start Levophed if necessary to keep SBP >90 mmHg Patient on regular diet. DVT prophylaxis with Lovenox Patient is stable for discharge from the pulmonary standpoint. Recommend outpatient evaluation in [facility]. Patient would benefit from evaluation at [facility] as outpatient. Options would include NIV + cough-assist device in addition to vest therapy. On 11/05/24, had an extensive discussion with patients family and patient in regards to management plan. I presented the option of emergent intubation and bronchoscopy as patient states that she feels like shes drowning at times and she is asphyxiating. I also presented the option of continuing the current medical management with bronchodilators, chest physiotherapy , postural drainage, and mucolytics in addition to abx. There is the risk of ventilator dependence given patient quadriplegia and diaphragmatic weakening. She continues to accumulate secretions that are very thick and difficult for her to expectorate. For now, patient and family have decided to continue with current medical management and deferred bronchoscopy. I have noticed she is also at risk for mechanical vent dependence, including requiring tracheostomy. Labs and imaging reviewed. Rest of plan as noted below. Plan: Continue supplemental oxygen Titrate to keep sats above 92% Continue bronchodilators NTS Head of bed elevation Aspiration precautions Continue antibiotics Follow up cultures DVT prophylaxis Prognosis: Guarded given multiple comorbidities. Condition: Critical Rest of plan per hospitalist and other consultants. A total of 35 minutes of critical care time was spent reviewing the patient record, examining the patient, making a diagnostic and therapeutic plan, discussing this plan with the medical personnel, following up on diagnostic studies and following the patient for clinical stability excluding any and all procedures. At least 50% of this time was spent in direct, [id number] contact. Thank you Dr. Cuevas for allowing me to participate in this patient's care. Further recommendations will depend on patient's clinical course. Please do not hesitate to contact me if you have any questions or concerns. This medical document was created using an electronic medical record system with dotloop dictation system. Although this document has been carefully reviewed, there may still be some phonetic and typographical errors. These areas are purely typographical due to imperfections of the software programs, and do not reflect any compromise in the patient's medical care. Dietary Evaluation Review Comments: 1. Provide TPN per pharmacy, if NPO > 7 days 2. Provide TF Jevity 1.2 @40 ml/hr (53 gPro, 1152 kcal), if EN/GI accessible, and pt is extubated and PO feeding not medically feasible. Continue the same TF portocol with clinimix @41ml/hr if pt has to remain intubated. 3. Offer a Regular diet texture as tolerated if pt is off vent and passing a sppech eval. Expected Outcomes/Goals: Provide and Monitor nutrition support to meet 75% of her needs. Plan discussed with: Other (RN) Critical Care Time(min): 35 JAVIER NELSON MD Nov 08, 2024 23:08
[2024-11-09] VITALS (30 sets, daily range): BP systolic 90–130; BP diastolic 36–84; PULSE 60–129; RESP 12–26; TEMP 97.6–99.6; O2SAT 84–99
[2024-11-09 03:53] LABS: Basophils # (auto) 0 10 ^3/uL (0-0.2); Basophils % (auto) 0.6 % (0.0-2.0); Eosinophils # (auto) 0.3 10 ^3/uL (0-0.8); Eosinophils % (auto) 3.9 % (0.0-7.0); Hematocrit 35.9 % (36.0-46.0); Hemoglobin 12.1 g/dL (12.2-16.2); Lymphocytes # (auto) 2.6 10 ^3/uL (0.4-5.4); Lymphocytes % (auto) 36.1 % (10.0-50.0); Mean Corpuscular Hemoglobin 29.2 pg (28.0-32.0); Mean Corpuscular Hgb Conc. 33.7 g/dL (32.0-36.0); Mean Corpuscular Volume 86.7 fL (80.0-100.0); Monocytes # (auto) 0.6 10 ^3/uL (0-1.3); Neutrophils # (auto) 3.7 10 ^3/uL (1.6-8.6); Neutrophils % (auto) 51.4 % (37.0-80.0); Nucleated Red Blood Cells % 0.1 %; Platelet Count (auto) 374 10^3/uL (140-450); Red Blood Cells 4.14 10^6/uL (4.0-5.20); Red Cell Distribution Width 18.1 % (11.8-14.3); White Blood Cell 7.2 10^3/uL (4.4-10.8)
[2024-11-09 04:09] LABS: Alanine Aminotransferase 24 U/L (7-40); Albumin 3.9 g/dL (3.2-4.8); Alkaline Phosphatase 99 U/L (46-116); Anion Gap 8 (5-15); Aspartate Aminotransferase 18 U/L (13-40); BUN/Creatinine Ratio 27.3 (10.0-20.0); Blood Urea Nitrogen 9 mg/dL (9-23); Calcium 9.9 mg/dL (8.7-10.4); Carbon Dioxide 29 mmol/L (20-31); Chloride 102 mmol/L (98-107); Glucose 91 mg/dL (74-106); Potassium 4.4 mmol/L (3.5-5.1); Sodium 139 mmol/L (136-145)
[2024-11-09 04:10] LABS: Total Protein 6.8 g/dL (5.7-8.2)
[2024-11-09 04:39] LABS: Bilirubin, Total 0.3 mg/dL (0.2-1.0); Phosphorus 5.3 mg/dL (2.4-5.1)
--- NOTE | 2024-11-09 05:14 | DVH ---
CHEST RADIOGRAPH Indication: assess right lung base Technique: Single frontal view of the chest was obtained Comparison: XY CHEST XRAY 1 VIEW on DOS: 11/08/24 FINDINGS: Lines and Tubes: None Lungs: Bibasilar opacities. Pleura: No effusion. No pneumothorax. Cardiomediastinal contours: Unremarkable Bones: No acute osseous abnormality. IMPRESSION: 1. Bibasilar opacities which may reflect atelectasis or pneumonia. Findings are similar to prior victorino dy.
[2024-11-09 09:16] LABS: Base Excess 5.8 mmol/L (-2.0-3.0)
--- NOTE | 2024-11-09 11:40 | DVHPNRES ---
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 Patient denies additional past medical history of relevance but states that her blood pressure runs in the lower side. The patient presented to the ED due to shortness of breath associated with sputum production without being able to expectorate due to her condition. The patient reported shortness of breath, phlegm associated with fever but no chills. The patient denied chest pain, abdominal pain, nausea, vomiting or any other symptoms. The patient also denied any sick contacts recently. Initial chest x- ray revealed significant consolidation in the right lung base and middle lobe with a opacities extending from the base to the upper lobe. A CT angio of the chest was performed showing no evidence of pulmonary embolism but with consolidation in the right middle and lower lobes. The patient was started on vancomycin, meropenem, azithromycin for sepsis due to right lung bacterial pneumonia. On 11/02/2024 the patient underwent bronchoscopy on right middle and lower lobe with significant mucus plugging especially in are one-L10. Bronchial alveolar lavage was sent for microbiology. Sputum culture is growing Pseudomonas which is resistant to meropenem, we stopped meropenem and azithromycin and we started ciprofloxacin IV and we will continue IV vancomycin. Patient seen and examined at bedside. Patient is alert and oriented x3. The patient was initially this morning at 2 L of oxygen through nasal cannula. Oxygen was titrated down and right now the patient is on room air saturating 89%. ABG on room air was performed and the patient was having a PaO2 of 57 which does not qualify for home oxygen. We will maintain the patient on room air and assess with a new ABG later on in the evening. We will discuss with social services the possibility of getting a high-frequency best for secretions. Meanwhile, we will downgrade the patient to telemetry since the patient is not having no high-flow oxygen, no vasopressors or no hemodynamic drugs. We will continue current clindamycin, levofloxacin and fluconazole at this time with all rest of current medical management. Pulmonology on board and is aware of the case. ROS Constitutional: Denies weight loss, fever and chills. HEENT: Denies changes in vision and hearing. Respiratory: Denies shortness of breath and cough Cardiovascular: Denies chest discomfort or palpitations GI: Denies abdominal pain, nausea, vomiting and diarrhea. : Denies dysuria and urinary frequency. Musculoskeletal: Denies myalgias and joint pain Skin: Denies rash and pruritus. Neurological: Denies dizziness, headache, vision or hearing problems Objective vital signs Vital Sign Date Time Temp Pulse Resp B/P (MAP) Pulse Ox O2 Delivery O2 Flow Rate FiO2 11/09/24 10:40 61 18 99 11/09/24 10:28 101/49 11/09/24 08:00 Nasal Cannula* 12 0211/09/24 08:00 97.6 97.6 Total Intake and Output 11/08/24 11/08/24 11/09/24 15:00 23:00 07:00 Intake Total 410 ml 510 ml 300 ml Output Total 1250 ml 950 ml Balance 410 ml -740 ml -650 ml medications Current Medications Medications Dose Ordered Sig/Carlos Route Start Time Stop Time Status Last Admin Dose Admin Ipratropium [place] 0.5 mg Q4HR NEB 11/01/24 06:00 11/09/24 10:59 0.5 MG Levalbuterol HCl 1.25 mg Q4HR NEB 11/01/24 06:00 11/09/24 10:59 1.25 MG Acetaminophen 650 mg Q6HP PRN PO 11/01/24 06:00 11/02/24 06:29 650 MG Enoxaparin Sodium 40 mg DAILY SC 11/01/24 10:37 11/09/24 10:28 40 MG Baclofen 20 mg Q8HR PO 11/01/24 15:30 11/09/24 05:47 20 MG Dexmedetomidine HCl 400 mcg/ Dextrose 100 ml @ 3 mls/hr Q24H IV 11/02/24 15:30 Ciprofloxacin 200 ml @ 200 mls/hr Q12HR IV 11/03/24 22:00 Hold 11/05/24 09:07 200 MLS/HR Docusate Sodium 100 mg BID GT 11/03/24 22:00 11/09/24 10:28 100 MG Polyethylene Glycol 17 gm DAILY PO 11/03/24 22:00 11/09/24 10:28 17 GM Hydromorphone HCl 0.25 mg Q4HPRN PRN IV 11/03/24 19:00 11/09/24 08:31 0.25 MG Acetylcysteine 100 mg Q4HR NEB 11/03/24 22:00 11/09/24 10:59 100 MG Levofloxacin/ Dextrose 150 ml @ 100 mls/hr DAILY@1400 IV 11/05/24 14:00 11/09/24 13:59 11/08/24 13:58 100 MLS/HR Clindamycin Phosphate 50 ml @ 50 mls/hr Q8HR IV 11/07/24 14:00 11/09/24 05:48 50 MLS/HR Fluconazole 100 ml @ 100 mls/hr 10,11 IV 11/08/24 11:00 11/09/24 10:28 100 MLS/HR Examination Physical Examination General: Patient alert and oriented in person, place and time. Patient is quadriplegic and unable to expectorate. Patient following commands. HEENT: Normocephalic, atraumatic, moist mucous membranes Respiratory/pulmonary: There are mild coarse sounds on right lung beckett but sounds have improved compared to admission especially in the mid and apical region. No wheezes at this time. Cardiovascular: Normal heart sounds S1 and S2 with no associated murmurs Abdomen: Abdomen nondistended, there is no pain to palpation in any of the abdominal quadrants, no palpable masses. Extremities: There is no peripheral edema present at the lower extremities. Patient unable to move upper or lower extremities due to her condition. Peripheral Pulses: 3+ Radial (R). 3+ Radial (L). 3+ Dorsalis pedis (R). 3+ Dorsalis pedis(L) Skin: No rashes or pruritus, there is no sacral edema present at this time. Neurological: Patient is quadriplegic, only able to move head and minimally shoulders. patient is alert and oriented x3. laboratory and microbiology Laboratory Tests 11/09/24 02:55 Test 11/09/24 02:55 Range/Units Serum Glucose 91 74-106 mg/dL Microbiology Date/Time Source Procedure Growth Status 11/02/24 12:15 Nose MRSA Screen - Final Complete 11/01/24 10:54 Sputum Gram Stain - Final Complete 11/01/24 10:54 Respiratory Culture - Final Pseudomonas aeruginosa Complete 11/01/24 08:00 Voided Urine Urine Culture - Final Complete 11/01/24 04:44 Blood Blood Culture - Final NO GROWTH AFTER 5 DAYS OF INCUBATION. Complete Problem List/Assessment/Plan Problem List/Assessment/Plan Assessment/Plan Acute hypoxic respiratory failure due to right lung bacterial gram+/- pneumonia Possible aspiration pneumonia Sepsis likely due to above Possible mucus plug on right lower lobe -initial chest x-ray showed complete opacities on right lung especially right lung base and mid lobe. -right lung beckett are diminished and absent at the base and middle lobe. -CT angio of the chest showed no pulmonary embolism but showed diffuse consolidations in the right middle and lower lobes. -currently on 2 L of oxygen through nasal cannula. Recently titrated down oxygen, on room air saturating 89%. -Chest U/S showed no evidence of pleural effusion -Continue IV levofloxacin -Continue IV clindamycin -Continue IV Fluconazole 400mg BID -continue respiratory therapy with levalbuterol and ipratropium med nebs. -Mechanical percussion therapy -Mucomyst -consulted pulmonology, which is on board -Bronchoscopy was performed on 11/02/24. -No subsequent bronchoscopy by now. -bronchioalveolar lavage is pending -ordered CT scan of the chest without contrast to evaluate right lower lobe which showed low volumes on the right lung white opacities in the middle and lower lobes. -Ordered swallow evaluation, which the patient passed and is currently on soft mechanical diet -blood culture came back negative but sputum culture is growing Pseudomonas which is resistant to meropenem. Quadriplegia secondary to intracranial bleed in July of 2023 -patient was treated for stroke and received dose of alteplase which resulted in intracranial bleeding -patient unable to move upper or lower extremities. Only moves head and minimally bilateral shoulders. Patient is alert and oriented x3. Sinus tachycardia likely due to anxiety -patient had episode of sinus tachycardia in the 130s-140s that resolved after Ativan administration -continuous cardiac monitoring -EKG showed sinus tachycardia, no ST segment elevation or depression or any T- wave abnormalities. Patient denied chest pain. -patient received 500 cc bolus of normal saline Hx of low blood pressure -Monitor DOWNGRADE TO TELEMETRY Goals of care discussed with the patient and family at bedside for >30min, FULL CODE Plan discussed with Dr. Salinas and Dr. Borden Plan discussed with: Patient My Orders My Orders Orders - SIDRA WILSON Procedure Category Date Status Time BIPAP RT 11/08/24 Logged 13:31 Abg W/ Co-Ox RT 11/08/24 Logged 15:23 * [employer] CONS 11/08/24 Transmitted Consult Chest Xray 1 View XY 11/09/24 Resulted 04:00 Abg W/ Co-Ox RT 11/09/24 Logged 04:00 Abg W/ Co-Ox RT 11/09/24 Logged 09:00 Transfer Orders XFER 11/09/24 Transmitted 10:05 Dietary Evaluation Review Comments: 1. Provide TPN per pharmacy, if NPO > 7 days 2. Provide TF Jevity 1.2 @40 ml/hr (53 gPro, 1152 kcal), if EN/GI accessible, and pt is extubated and PO feeding not medically feasible. Continue the same TF portocol with clinimix @41ml/hr if pt has to remain intubated. 3. Offer a Regular diet texture as tolerated if pt is off vent and passing a sppech eval. Expected Outcomes/Goals: Provide and Monitor nutrition support to meet 75% of her needs. Date of Service: Nov 09, 2024 Billing Provider: JENNIFER VÁZQUEZ MD Common Visit Codes: [id number] INP/OBS CARE(HIGH) SIDRA WILSON RESIDENT Nov 09, 2024 11:40 JENNIFER VÁZQUEZ MD Nov 09, 2024 16:09
--- NOTE | 2024-11-09 22:39 | DVHPN2 ---
Progress Note - Dictate Date Seen: Nov 09, 2024 Has the PT tested + for MRSA If YES, has PT been informed?: No Medical Necessity Reason Pt with a Central, PICC or Fol: Yes The following are medically ne: Rhodes Catheter Reason for rhodes catheter: Strict I&O Subjective Patient seen and examined at bedside. On supplemental oxygen Overnight events reviewed. vital signs Vital Sign Date Time Temp Pulse Resp B/P (MAP) Pulse Ox O2 Delivery O2 Flow Rate FiO2 11/09/24 22:10 103 18 96 11/09/24 22:00 Nasal Cannula 2.0 11/09/24 22:00 28 11/09/24 21:00 99.6 130/84 (99) 99.6 Total Intake and Output 11/08/24 11/08/24 11/09/24 15:00 23:00 07:00 Intake Total 410 ml 510 ml 300 ml Output Total 1250 ml 950 ml Balance 410 ml -740 ml -650 ml medications Current Medications Medications Dose Ordered Sig/Acrlos Route Start Time Stop Time Status Last Admin Dose Admin Ipratropium [place] 0.5 mg Q4HR NEB 11/01/24 06:00 11/09/24 22:00 0.5 MG Levalbuterol HCl 1.25 mg Q4HR NEB 11/01/24 06:00 11/09/24 22:00 1.25 MG Acetaminophen 650 mg Q6HP PRN PO 11/01/24 06:00 11/02/24 06:29 650 MG Enoxaparin Sodium 40 mg DAILY SC 11/01/24 10:37 11/09/24 10:28 40 MG Baclofen 20 mg Q8HR PO 11/01/24 15:30 11/09/24 14:17 20 MG Ciprofloxacin 200 ml @ 200 mls/hr Q12HR IV 11/03/24 22:00 Hold 11/05/24 09:07 200 MLS/HR Docusate Sodium 100 mg BID GT 11/03/24 22:00 11/09/24 10:28 100 MG Polyethylene Glycol 17 gm DAILY PO 11/03/24 22:00 11/09/24 10:28 17 GM Hydromorphone HCl 0.25 mg Q4HPRN PRN IV 11/03/24 19:00 11/09/24 18:35 0.25 MG Acetylcysteine 100 mg Q4HR NEB 11/03/24 22:00 11/09/24 22:00 100 MG Clindamycin Phosphate 50 ml @ 50 mls/hr Q8HR IV 11/07/24 14:00 11/09/24 14:18 50 MLS/HR Fluconazole 100 ml @ 100 mls/hr 10,11 IV 11/08/24 11:00 11/09/24 10:28 100 MLS/HR objective Gen.: Patient lying in bed in no apparent distress. On supplemental oxygen Head: Normocephalic, atraumatic Eyes: EOMI/PERRLA. Ears: Normal hearing. Normal anatomy. Neck/trachea: Trachea midline, supple. Tracheostomy scar. Nose: Normal external anatomy. Mouth: Moist mucous membranes. Chest: Decreased air entry bilaterally. No wheezing. Right lower lobe rhonchi. Dullness to percussion in right lower lung field. Cardio vascular: Positive S1, positive S2. Regular rate and rhythm. Abdomen: Positive bowel sounds in all 4 quadrants. Soft, non-tender, non- distended. : Deferred. Rectal: Deferred Skin: Warm, dry. Extremities: 2+ radial pulses bilaterally. No lower extremity edema. Neuro: Awake, alert, oriented x3. Quadriplegia laboratory and microbiology Laboratory Tests 11/09/24 02:55 Test 11/09/24 02:55 Range/Units Serum Glucose 91 74-106 mg/dL Assessment/Plan Impression: Acute hypoxic respiratory failure Pneumonia, aspiration versus community-acquired Sepsis due to pneumonia Pulmonary embolism ruled out Mucus plugging of right lower lobe Atelectasis Tracheostomy, history Events: Remains on supplemental oxygen On 2 LPM NC Taper O2 as tolerated Head of bed elevation Aspiration precautions Pulmonary toileting NTS Continue bronchodilators/Mucomyst Chest physiotherapy Continue antibiotics Incentive spirometry Pain control Avoid oversedation Postural drainage Start Levophed if necessary to keep SBP >90 mmHg Patient on regular diet. DVT prophylaxis with Lovenox Patient is stable for downgrade and discharge from the pulmonary standpoint once home O2 requirements assessed and arranged. Recommend outpatient evaluation in [facility]. Patient would benefit from evaluation at [facility] as outpatient. Options would include NIV + cough-assist device in addition to vest therapy. On 11/05/24, had an extensive discussion with patients family and patient in regards to management plan. I presented the option of emergent intubation and bronchoscopy as patient states that she feels like shes drowning at times and she is asphyxiating. I also presented the option of continuing the current medical management with bronchodilators, chest physiotherapy , postural drainage, and mucolytics in addition to abx. There is the risk of ventilator dependence given patient quadriplegia and diaphragmatic weakening. She continues to accumulate secretions that are very thick and difficult for her to expectorate. For now, patient and family have decided to continue with current medical management and deferred bronchoscopy. I have noticed she is also at risk for mechanical vent dependence, including requiring tracheostomy. Labs and imaging reviewed. Rest of plan as noted below. Plan: Continue supplemental oxygen Titrate to keep sats above 92% Continue bronchodilators NTS Head of bed elevation Aspiration precautions Continue antibiotics Follow up cultures- Sputum cultures grew Pseudomonas aeruginosa. DVT prophylaxis Prognosis: Guarded given multiple comorbidities. Rest of plan per hospitalist and other consultants. Thank you Dr. Cuevas for allowing me to participate in this patient's care. Further recommendations will depend on patient's clinical course. Please do not hesitate to contact me if you have any questions or concerns. This medical document was created using an electronic medical record system with [employer] dictation system. Although this document has been carefully reviewed, there may still be some phonetic and typographical errors. These areas are purely typographical due to imperfections of the software programs, and do not reflect any compromise in the patient's medical care. Dietary Evaluation Review Comments: 1. Provide TPN per pharmacy, if NPO > 7 days 2. Provide TF Jevity 1.2 @40 ml/hr (53 gPro, 1152 kcal), if EN/GI accessible, and pt is extubated and PO feeding not medically feasible. Continue the same TF portocol with clinimix @41ml/hr if pt has to remain intubated. 3. Offer a Regular diet texture as tolerated if pt is off vent and passing a sppech eval. Expected Outcomes/Goals: Provide and Monitor nutrition support to meet 75% of her needs. Plan discussed with: Patient, Other (ERASMO Draper/[place]) JAVIER NELSON MD Nov 09, 2024 22:39
[2024-11-10] VITALS (15 sets, daily range): BP systolic 96–122; BP diastolic 47–76; PULSE 72–108; RESP 16–20; TEMP 36.7; O2SAT 94–99
[2024-11-10 05:50] LABS: Basophils # (auto) 0.1 10 ^3/uL (0-0.2); Basophils % (auto) 0.7 % (0.0-2.0); Eosinophils # (auto) 0.3 10 ^3/uL (0-0.8); Eosinophils % (auto) 2.8 % (0.0-7.0); Hematocrit 38.1 % (36.0-46.0); Lymphocytes # (auto) 2.2 10 ^3/uL (0.4-5.4); Lymphocytes % (auto) 23.4 % (10.0-50.0); Mean Corpuscular Hemoglobin 29.4 pg (28.0-32.0); Mean Corpuscular Hgb Conc. 34.2 g/dL (32.0-36.0); Monocytes # (auto) 0.7 10 ^3/uL (0-1.3); Monocytes % (auto) 7.3 % (0.0-12.0); Neutrophils # (auto) 6.3 10 ^3/uL (1.6-8.6); Neutrophils % (auto) 65.8 % (37.0-80.0); Nucleated Red Blood Cells % 0.1 %; Platelet Count (auto) 392 10^3/uL (140-450); Red Blood Cells 4.43 10^6/uL (4.0-5.20); Red Cell Distribution Width 18.2 % (11.8-14.3); White Blood Cell 9.6 10^3/uL (4.4-10.8)
[2024-11-10 06:03] LABS: Anion Gap 7 (5-15); Carbon Dioxide 30 mmol/L (20-31); Chloride 101 mmol/L (98-107); Potassium 4.5 mmol/L (3.5-5.1); Sodium 138 mmol/L (136-145)
[2024-11-10 06:08] LABS: Glucose 93 mg/dL (74-106)
[2024-11-10 06:09] LABS: BUN/Creatinine Ratio 35.7 (10.0-20.0); Blood Urea Nitrogen 15 mg/dL (9-23)
[2024-11-10] MEDS ORDERED: LEVO750T40 PO (10:06)
[2024-11-10] MEDS ORDERED: CLIN1CAP70 PO (10:06)
--- NOTE | 2024-11-10 11:36 | DVHDSRES ---
Discharge Summary Date of Admission Resident Creating Document: SIDRA WILSON RESIDENT Nov 01, 2024 at 05:49 Date of Discharge: Nov 10, 2024 Admitting Diagnosis Acute hypoxic respiratory failure Wounds: No wounds present at this time. Labs/Diagnostic Data: Laboratory Results Test 11/10/24 05:25 11/09/24 15:11 11/09/24 02:55 11/06/24 03:41 White Blood Count 9.6 10^3/uL (4.4-10.8) Red Blood Count 4.43 10^6/uL (4.0-5.20) Hemoglobin 13.0 g/dL (12.2-16.2) Hematocrit 38.1 % (36.0-46.0) Mean Corpuscular Volume 86.0 fL (80.0-100.0) Mean Corpuscular Hemoglobin 29.4 pg (28.0-32.0) Mean Corpuscular Hemoglobin Concent 34.2 g/dL (32.0-36.0) Red Cell Distribution Width 18.2 % (11.8-14.3) Platelet Count 392 10^3/uL (140-450) Mean Platelet Volume 7.3 fL (6.9-10.8) Neutrophils (%) (Auto) 65.8 % (37.0-80.0) Lymphocytes (%) (Auto) 23.4 % (10.0-50.0) Monocytes (%) (Auto) 7.3 % (0.0-12.0) Eosinophils (%) (Auto) 2.8 % (0.0-7.0) Basophils (%) (Auto) 0.7 % (0.0-2.0) Neutrophils # (Auto) 6.3 10 ^3/uL (1.6-8.6) Lymphocytes # (Auto) 2.2 10 ^3/uL (0.4-5.4) Monocytes # (Auto) 0.7 10 ^3/uL (0-1.3) Eosinophils # (Auto) 0.3 10 ^3/uL (0-0.8) Basophils # (Auto) 0.1 10 ^3/uL (0-0.2) Nucleated Red Blood Cells 0.1 % Sodium Level 138 mmol/L (136-145) Potassium Level 4.5 mmol/L (3.5-5.1) Chloride Level 101 mmol/L (98-107) Carbon Dioxide Level 30 mmol/L (20-31) Anion Gap 7 (5-15) Blood Urea Nitrogen 15 mg/dL (9-23) Creatinine 0.42 mg/dL (0.550-1.02) Glomerular Filtration Rate Calc 138 mL/min (>90) BUN/Creatinine Ratio 35.7 (10.0-20.0) Serum Glucose 93 mg/dL (74-106) Calcium Level 10.0 mg/dL (8.7-10.4) Magnesium Level 2.0 mg/dL (1.6-2.6) Blood Gas Specimen Type Arterial Blood Gas Sample Site Left brachial Blood Gas Patient Temperature 37.0 Arterial Blood Date Drawn [id number] Arterial Blood pH 7.399 (7.350-7.450) Arterial Blood Partial Pressure CO2 45.1 mmHg (32.0-45.0) Arterial Blood Partial Pressure O2 49.1 mmHg (83.0-108.0) Arterial Blood HCO3 27.2 mmol/L (21.0-28.0) Arterial Blood Oxygen Saturation 82.1 % (94.0-98.0) Arterial Blood Base Excess 2.0 mmol/L (-2.0-3.0) Arterial Blood Oxyhemoglobin 81.5 % (94.0-98.0) Arterial Blood Carboxyhemoglobin 0.7 % (0.5-1.5) Arterial Blood Methemoglobin 0.0 % (0.0-1.5) Vincent Test N/a Blood Gas Total Hemoglobin 13.50 g/dL (12.0-16.0) Blood Gas Liter Flow 0.00 Blood Gas Modality Room air FiO2 % 21.0 Blood Gas Critical Value Read Back Yes Blood Gas Notified Whom zee Roberts Blood Gas Notified Time [id number] Blood Gas Notified By Automatic [employer]ric Cutter trace briseno Phosphorus Level 5.3 mg/dL (2.4-5.1) Total Bilirubin 0.3 mg/dL (0.2-1.0) Aspartate Amino Transferase (AST) 18 U/L (13-40) Alanine Aminotransferase (ALT) 24 U/L (7-40) Alkaline Phosphatase 99 U/L (46-116) Total Protein 6.8 g/dL (5.7-8.2) Albumin 3.9 g/dL (3.2-4.8) Lactic Acid Level 0.6 mmol/L (0.4-2.0) Test 11/05/24 11:53 11/02/24 18:08 11/02/24 16:30 11/01/24 19:40 Vancomycin Level Trough 11.7 ug/mL (5-10) Blood Gas Spontaneous Rate 14 Blood Gas Pressure Support 10 Blood Gas PEEP or CPAP 5.0 Blood Gas Set Respiration Rate 20.0 Blood Gas Tidal Volume 350.0 Prothrombin Time 11.1 sec (9.3-11.8) Prothrombin Time INR 1.05 (0.9-1.15) Test 11/01/24 08:00 11/01/24 05:41 11/01/24 01:00 Urine Color Colorless (Yellow) Urine Clarity Clear (Clear) Urine pH 6.5 (5.0-9.0) Urine Specific [place] 1.014 (1.001-1.035) Urine Protein Negative (Negative) Urine Ketones Negative (Negative) Urine Blood 1+ /uL (Negative) Urine Nitrite Negative (Negative) Urine Bilirubin Negative (Negative) Urine Urobilinogen Normal mg/dL (Negative) Urine Leukocyte Esterase Negative /uL (Negative) Urine RBC 1 /hpf (0 - 4) Urine Microscopic WBC 2 /HPF (0-5) Urine Squamous Epithelial Cells Few /hpf (<5) Urine Bacteria None seen /hpf (None Seen) Urine Glucose Normal mg/dL (Normal) Influenza Type A Antigen Negative (Negative) Influenza Type B Antigen Negative (Negative) SARS-CoV-2 Antigen (Rapid) Negative (NEGATIVE) Hemoglobin A1c 5.6 % A1C (<5.7) B-Type Natriuretic Peptide 14.82 pg/mL (0-100) Beta HCG, Quantitative 0.8 mIU/mL (1.5-4.2) Other Laboratory Tests 11/10/24 05:25 Brief Hx & Hospital Course: Hospitalization course: This is a 24-year-old female with past medical history of quadriplegia secondary to intracranial hemorrhage due to alteplase administration in July of 2023 due to possible stroke. Patient denies additional past medical history of relevance but states that her blood pressure runs in the lower side. The patient presented to the ED due to shortness of breath associated with sputum production without being able to expectorate due to her condition. The patient reported shortness of breath, phlegm associated with fever but no chills. The patient denied chest pain, abdominal pain, nausea, vomiting or any other symptoms. The patient also denied any sick contacts recently. Initial chest x-ray revealed significant consolidation in the right lung base and middle lobe with a opacities extending from the base to the upper lobe. A CT angio of the chest was performed showing no evidence of pulmonary embolism but with consolidation in the right middle and lower lobes. The patient was started on vancomycin, meropenem, azithromycin for sepsis due to right lung bacterial pneumonia. On 11/02/2024 the patient underwent bronchoscopy on right middle and lower lobe with significant mucus plugging especially in are one-L10. Bronchial alveolar lavage was sent for microbiology. Sputum culture is growing Pseudomonas which is resistant to meropenem, we stopped meropenem and azithromycin and we started ciprofloxacin IV and continued IV vancomycin. We spoke directly with pharmacy we decided to switch ciprofloxacin IV levofloxacin, due to not presence of MRSA we discontinued IV vancomycin and started the patient metronidazole initially and then switched to IV clindamycin. The patient was on IV levofloxacin and clindamycin after sputum cultures came back. Pulmonology was on board over the case which agreed with IV antibiotics. The patient was on high-flow oxygen through nasal cannula for long time during her hospitalization stay but is currently on 2 L of oxygen through nasal cannula. ABG was performed on room air and patient did qualify for home oxygen based on her PaO2 which was less than 50 mmHg. Today, patient was assessed and evaluated at bedside patient denies significant shortness of breath or chest pain at this time. The patient is still at 2 L of oxygen which is going to require at home as well. We will discharge the patient on clindamycin 300 mg p.o. t.i.d. for seven days, levofloxacin 750 mg p.o. daily for seven days and inhaled tobramycin 300 mg b.i.d. for 30 days. The patient was advised to follow up closely with her PCP in one week and with scientific laboratory supervisor at [facility]. The patient and family agrees with the plan. Admitting diagnosis: Acute hypoxic respiratory failure Discharge plan: -patient needs home oxygen at 2 L of oxygen through nasal cannula -levofloxacin 750 mg q.d. p.o. for seven days -clindamycin 300 mg t.i.d. for seven days -inhaled tobramycin 300mg BID for 30 days -follow-up with her PCP in one week - follow-up with scientific laboratory supervisor at [facility] in 2 weeks Consults/Reason for consult Pulmonology for bronchoscopy Operations or Procedures CHEST RADIOGRAPH Indication: sob Technique: Single frontal view of the chest was obtained Comparison: XY CHEST PORTABLE on DOS: 12/29/23, XY CHEST PORTABLE on DOS: 12/09/23, XY CHEST PORTABLE on DOS: 12/06/23 IMPRESSION: There is dense opacification of the lower half of the right lung with mediastinal shift to the right and termination of the right mainstem bronchus suggesting atelectasis with probable occlusion of the right bronchus. The left lung appears relatively clear. There is interstitial prominence and mild pulmonary vascular congestion. No pneumothorax. CLINICAL INFORMATION: 24 years old, Female; rule out pulmonary embolism. No other clinical information provided. Indication for same day chest radiograph was shortness of breath. TECHNIQUE: Axial CTA images of the chest were obtained after the uneventful administration of 100 mL of Omnipaque 350 IV contrast. Coronal and sagittal reformatted images and MIP images were obtained, reviewed, and stored. One or more of the following dose reduction techniques were used: Automated exposure control. Adjustment of mA and/or kV according to patient size. CTDIvol = 13.28, 11.84, 0.07, 0.07 mGy DLP = 369.5 mGy-cm COMPARISON: CT CT ANGIO CHEST CONTRAST on DOS: 12/29/23, CT CT ANGIO CHEST CONTRAST on DOS: 12/03/23. Chest radiograph dated 11/01/2024. FINDINGS: Pulmonary arteries: Respiratory motion artifact limits evaluation. There is no central pulmonary embolism there is no right lobar pulmonary embolism. Can not exclude left lobar or bilateral segmental or subsegmental pulmonary emboli due to respiratory motion artifact. Aorta: No aneurysm or dissection. Cardiac: Heart size is within normal limits. No significant coronary artery calcification. Mediastinum/debbi: No mass or adenopathy. Lungs: Atelectasis and consolidation in the right lower lobe and right middle lobe, possibly involving small portions of the posterior right upper lobe no pneumothorax or pleural effusion. There is moderate elevation of the right hemidiaphragm. Chest wall: No mass or other abnormality. Upper abdomen: Visualized structures in the upper abdomen are unremarkable, although evaluation of the parenchymal organs is limited on arterial phase images. Bones: No fracture or suspicious intraosseous lesions. IMPRESSION: 1. Limited evaluation for pulmonary embolism due to respiratory motion artifact. No central pulmonary embolism or right lobar pulmonary embolism. Can not exclude left lobar or bilateral segmental or subsegmental pulmonary emboli due to respiratory motion artifact. 2. Atelectasis and consolidation in the right lower lobe and right middle lobe, possibly involving small portions of the posterior right upper lobe. 3. Moderate elevation of the right hemidiaphragm. US BiLat Lower DVT HISTORY: r/o pe COMPARISON: None TECHNIQUE: Duplex Doppler evaluation of the deep venous system of the lower extremity from the common femoral veins, superficial femoral vein, great saphenous vein, deep femoral vein, popliteal vein, and calf veins, including color Doppler and spectral/pulsed waveform analysis, was performed. FINDINGS: Right: - Common femoral vein: Compressible - Deep femoral vein: Compressible - Femoral vein: Compressible - Popliteal vein: Compressible - Posterior tibial vein: Waveforms present - Other: Nothing Left: - Common femoral vein: Compressible - Deep femoral vein: Compressible - Femoral vein: Compressible - Popliteal vein: Compressible - Posterior tibial vein: Waveforms present - Other: Nothing IMPRESSION: No right or left lower extremity deep venous thrombosis. Bilateral Chest Sonogram Clinical history: Pleural effusion evaluation Technique: Limited sonographic evaluation of the right and left chest was performed. Findings/Impression: There is a no pleural effusion. CHEST RADIOGRAPH Indication: pna Technique: Single frontal view of the chest was obtained Comparison: XY CHEST PORTABLE on DOS: 11/03/24 FINDINGS: Lines and Tubes: Enteric tube terminates in the stomach. Lungs: Right hemidiaphragm is elevated. Right basilar opacity. Pleura: No effusion. No pneumothorax. Cardiomediastinal contours: Unremarkable Bones: No acute osseous abnormality. IMPRESSION: 1. Elevated right hemidiaphragm. Right basilar opacity representing consolidation or atelectasis. Procedure: CT CHEST WITHOUT CONTRAST Reason for study/Clinical History: Right lower lobe pneumonia. Comparison Study: 11/01/2024. Exam Date: 11/04/2024 03:00 PM TECHNIQUE: Multidetector CT of the chest was performed from the lung apices to the upper abdomen without the use of intravenous contract. Axial, coronal and sagittal multiplanar reformats were performed. Radiation Dose Information: CT Dose: CTDI volume is 10 mGy. Dose-length product is 339 mGy*cm The dose indicators for CT are the volume Computed Tomography (CT) Dose Index (CTDIvol) and the Dose Length Product (DLP), and are measured in units of mGy and mGy-cm, respectively. These indicators are not patient dose, but values generated from the CT scanner acquisition factors. The report includes radiation exposure data for exposures received during this examination. Radiation optimization: All CT scans at this facility use at least one of these dose optimization techniques: automated exposure control mA and/or kV adjustment per patient size (includes targeted exams where dose is matched to clinical indication) or iterative reconstruction. FINDINGS Lungs/Pleura: There is volume loss in the right lung with elevated right hemidiaphragm. There is stable appearing likely collapse of the right middle and right lower lobes. There is small right pleural effusion. There is no evidence of pneumothorax Heart/Vascular Structures: Normal heart size. No pericardial effusion. Lymph Nodes: No thoracic lymphadenopathy. Musculoskeletal: No acute osseous abnormality. Soft tissues: Unremarkable. Upper abdomen: A nasogastric tube terminates in the proximal stomach. Visualized intra-abdominal structures appear within normal limits. IMPRESSION: 1. Stable appearing likely collapse of the right middle and lower lobes. There is right lung volume loss with elevated right hemidiaphragm. There is small right pleural effusion. CHEST RADIOGRAPH Indication: assess right lung base Technique: Single frontal view of the chest was obtained Comparison: XY CHEST XRAY 1 VIEW on DOS: 11/08/24 FINDINGS: Lines and Tubes: None Lungs: Bibasilar opacities. Pleura: No effusion. No pneumothorax. Cardiomediastinal contours: Unremarkable Bones: No acute osseous abnormality. IMPRESSION: 1. Bibasilar opacities which may reflect atelectasis or pneumonia. Findings are similar to prior study. Condition at Discharge: Good Final Diagnosis/Problems List Acute hypoxic respiratory failure due to right lung bacterial gram+/- pneumonia Possible aspiration pneumonia Sepsis likely due to above S/P bronchoscopy Possible mucus plug on right lower lobe Quadriplegia secondary to intracranial bleed in July of 2023 Discharge Disposition: Home Discharge Instruct/Medications Diet: Regular Activity: No Restrictions, As Tolerated Follow Up/Referral: F/U with her PCP in 1 week F/U with pulmonology at [facility] in 2 weeks Medications: Levofloxacin 750mg qd for 7 days clindamycin 300mg TID for 7 days inhaled tobramycin 300mg BID for 30 days Discharge Statement: "Patient was advised to return to the ER or call 911 if any headaches, dizziness, shortness of breath, chest pain, abdominal pain, bleeding, fevers, or worsening of medical condition. Patient was counseled about treatment plan, medications, possible side effects, patientverbalized understanding. All questions were answered to the best of my ability. This discharge took greater then 30 minutes in planning, reviewing documentation, counseling the patient, and discussing with other team members." ASSESSMENT ASSESSMENT Assessment Acute hypoxic respiratory failure due to right lung bacterial gram+/- pneumonia Possible aspiration pneumonia Sepsis likely due to above Possible mucus plug on right lower lobe Quadriplegia secondary to intracranial bleed in July of 2023 Sinus tachycardia likely due to anxiety SIDRA WILSON RESIDENT Nov 10, 2024 11:36
[2024-11-10] MEDS ORDERED: [UNRECOGNIZED DRUG - CODE] IN (16:56)
--- NOTE | 2024-11-10 23:27 | DVHPN2 ---
Progress Note - Dictate Date Seen: Nov 10, 2024 Has the PT tested + for MRSA If YES, has PT been informed?: No Medical Necessity Reason Pt with a Central, PICC or Fol: Yes The following are medically ne: Rhodes Catheter Reason for rhodes catheter: Strict I&O Subjective Patient seen and examined at bedside. On supplemental oxygen Overnight events reviewed. vital signs Vital Sign Date Time Temp Pulse Resp B/P (MAP) Pulse Ox O2 Delivery O2 Flow Rate FiO2 11/10/24 14:48 72 16 106/68 11/10/24 14:30 36.7 95 11/10/24 10:45 Nasal Cannula* 3 32 Total Intake and Output 11/09/24 11/09/24 11/10/24 15:00 23:00 07:00 Intake Total 210 ml 160 ml 100 ml Output Total 850 ml 950 ml Balance 210 ml -690 ml -850 ml objective Gen.: Patient lying in bed in no apparent distress. On supplemental oxygen Head: Normocephalic, atraumatic Eyes: EOMI/PERRLA. Ears: Normal hearing. Normal anatomy. Neck/trachea: Trachea midline, supple. Tracheostomy scar. Nose: Normal external anatomy. Mouth: Moist mucous membranes. Chest: Decreased air entry bilaterally. No wheezing. Right lower lobe rhonchi. Dullness to percussion in right lower lung field. Cardio vascular: Positive S1, positive S2. Regular rate and rhythm. Abdomen: Positive bowel sounds in all 4 quadrants. Soft, non-tender, non- distended. : Deferred. Rectal: Deferred Skin: Warm, dry. Extremities: 2+ radial pulses bilaterally. No lower extremity edema. Neuro: Awake, alert, oriented x3. Quadriplegia laboratory and microbiology Laboratory Tests 11/10/24 05:25 Test 11/10/24 05:25 Range/Units Serum Glucose 93 74-106 mg/dL Assessment/Plan Impression: Acute hypoxic respiratory failure Pneumonia, aspiration versus community-acquired Sepsis due to pneumonia Pulmonary embolism ruled out Mucus plugging of right lower lobe Atelectasis Tracheostomy, history Events: Remains on supplemental oxygen On 2 LPM NC Taper O2 as tolerated Head of bed elevation Aspiration precautions Pulmonary toileting NTS Continue bronchodilators/Mucomyst Chest physiotherapy Continue antibiotics Incentive spirometry Pain control Avoid oversedation Postural drainage Start Levophed if necessary to keep SBP >90 mmHg Patient on regular diet. DVT prophylaxis with Lovenox Patient is stable for discharge from the pulmonary standpoint. Follow up in 1-2 weeks in Pulmonary Clinic. Recommend outpatient evaluation in [facility]. Patient would benefit from evaluation at [facility] as outpatient. Options would include NIV + cough-assist device in addition to vest therapy. On 11/05/24, had an extensive discussion with patients family and patient in regards to management plan. I presented the option of emergent intubation and bronchoscopy as patient states that she feels like shes drowning at times and she is asphyxiating. I also presented the option of continuing the current medical management with bronchodilators, chest physiotherapy , postural drainage, and mucolytics in addition to abx. There is the risk of ventilator dependence given patient quadriplegia and diaphragmatic weakening. She continues to accumulate secretions that are very thick and difficult for her to expectorate. For now, patient and family have decided to continue with current medical management and deferred bronchoscopy. I have noticed she is also at risk for mechanical vent dependence, including requiring tracheostomy. Labs and imaging reviewed. Rest of plan as noted below. Plan: Continue supplemental oxygen Titrate to keep sats above 92% Continue bronchodilators NTS Head of bed elevation Aspiration precautions Continue antibiotics Follow up cultures- Sputum cultures grew Pseudomonas aeruginosa. DVT prophylaxis Prognosis: Guarded given multiple comorbidities. Rest of plan per hospitalist and other consultants. Thank you Dr. Cuevas for allowing me to participate in this patient's care. Further recommendations will depend on patient's clinical course. Please do not hesitate to contact me if you have any questions or concerns. This medical document was created using an electronic medical record system with [employer] dictation system. Although this document has been carefully reviewed, there may still be some phonetic and typographical errors. These areas are purely typographical due to imperfections of the software programs, and do not reflect any compromise in the patient's medical care. Dietary Evaluation Review Comments: 1. Provide TPN per pharmacy, if NPO > 7 days 2. Provide TF Jevity 1.2 @40 ml/hr (53 gPro, 1152 kcal), if EN/GI accessible, and pt is extubated and PO feeding not medically feasible. Continue the same TF portocol with clinimix @41ml/hr if pt has to remain intubated. 3. Offer a Regular diet texture as tolerated if pt is off vent and passing a sppech eval. Expected Outcomes/Goals: Provide and Monitor nutrition support to meet 75% of her needs. Plan discussed with: Patient, Other (ERASMO Bledsoe) JAVIER NELSON MD Nov 10, 2024 23:27
== END 2024-11-10 16:02 | disposition home or self-care (01) | DRG 720 ==
LOC: ER 00:15 → EDBD 00:15 → TELE 05:49 → TELE-CENTR 11-02 10:52 → PACU ICU 11-02 18:18 → CATH ICU 11-03 17:47 → ICU WEST 11-07 19:47 → TELE-EAST 11-09 15:56
PROVIDERS: ADMIT Student in an Organized Health Care Education/Training Program; ATTEND Emergency Medicine
PROC: 0BH17EZ Insertion of Endotracheal Airway into Trachea, Via Natural or Artificial Opening (ICD-10-PCS; 2024-11-02)
PROC: 0B9F8ZX Drainage of Right Lower Lung Lobe, Via Natural or Artificial Opening Endoscopic, Diagnostic (ICD-10-PCS; 2024-11-02)
PROC: 5A09357 Assistance with Respiratory Ventilation, Less than 24 Consecutive Hours, Continuous Positive Airway Pressure (ICD-10-PCS; 2024-11-02)
PROC: 5A1935Z Respiratory Ventilation, Less than 24 Consecutive Hours (ICD-10-PCS; principal; 2024-11-02 14:30)
PROC: 5A09357 Assistance with Respiratory Ventilation, Less than 24 Consecutive Hours, Continuous Positive Airway Pressure (ICD-10-PCS; 2024-11-03)
DX: A41.50 Gram-negative sepsis, unspecified (principal); J96.01 Acute respiratory failure with hypoxia; J69.0 Pneumonitis due to inhalation of food and vomit; G82.50 Quadriplegia, unspecified; J15.69 Pneumonia due to other Gram-negative bacteria; R00.0 Tachycardia, unspecified; Z20.822 Contact with and (suspected) exposure to COVID-19; B34.9 Viral infection, unspecified; J15.9 Unspecified bacterial pneumonia; Z79.899 Other long term (current) drug therapy; Z86.73 Personal history of transient ischemic attack (TIA), and cerebral infarction without residual deficits; Z93.1 Gastrostomy status; Z93.0 Tracheostomy status
CPT/HCPCS: 31720; 36415; 36600; 71045; 71250; 71275; 76604; 80048; 80053; 80202; 81001; 82805; 83036; 83605; 83735; 83880; 84100; 84702; 85025; 85610; 87040; 87070; 87077; 87081; 87086; 87186; 87205; 87426; 87804; 92507; 92610; 93005; 93970; 94002; 94640; 94660; 94668; 96365; 96375; 97110; 97163; 97530; G0378; J0131; J0171; J0330; J1100; J1450; J1885; J1956; J2185; J2250; J3480; J3490; J7060